=== PATIENT | female | born 1935 | race Caucasian/White ===

== ENCOUNTER 2017-03-27 18:08 | Emergency (ER) | payer MEDICARE, BC ==
[2017-03-27 18:29] VITALS: BP 152/83
[2017-03-27] MEDS ORDERED: Take Home: Phenazopyridine 95 MG Tab, 4 Tab Pack ONE (19:25)
[2017-03-27] MEDS ORDERED: Take Home: Sulfamethoxazole/Trimethoprim 800-160 MG Tab, 2 Tab Pack PO ONE (19:25)
--- NOTE | 2017-03-27 21:58 | ER ---
Date of Service: 03/27/2017 SUBJECTIVE: Olga presents to the emergency room with complaints of dysuria that she has been experiencing since this evening. She states that the symptoms came on quite suddenly. She states that she does have a history of urinary tract infections with her last episode being approximately 1 year ago. She is not experiencing any flank or back pain. She states she is not experiencing any chest pain, shortness of breath, or lightheadedness. Her primary complaints are that of dysuria and urinary frequency. PAST MEDICAL HISTORY: 1. Hypertension. 2. Dyslipidemia. 3. Type 2 diabetes mellitus. 4. Vitamin D deficiency. MEDICATIONS: 1. Prednisolone. 2. Glucophage. 3. Glipizide XL. 4. Niaspan. 5. Nevanac. 6. Vigamox. 7. Levemir. 8. NovoLog. 9. Lisinopril/hydrochlorothiazide. 10.Fenofibrate. 11.Zetia. 12.Vitamin D2. 13.Aspirin 81 mg a day. ALLERGIES: Simvastatin and Zoloft. REVIEW OF SYSTEMS: Denies any fever, chills, chest pain, shortness of breath, abdominal pain, back pain, lightheadedness, or weakness. Again, her primary complaints are that of dysuria and urinary frequency. PHYSICAL EXAMINATION: General: This is an 81-year-old female patient, who is in no acute distress. Vital Signs: Heart rate is 105, temperature is 36.3, blood pressure is 152/83, respiratory rate 18, O2 saturations 95%. Skin: Warm, pink, and dry. HEENT: Mouth, oral mucosa is moist. Lungs: Clear to auscultation. Heart: Regular rate and rhythm. Abdomen: Soft and nontender. There is no hepatosplenomegaly noted. There is no masses noted. Extremities: Without edema. Neurologic: She is alert and oriented, answers all questions appropriately. Her speech is fluent. Gait is within normal limits. No CVA tenderness on percussion or palpation. . LABORATORY DATA: Urinalysis was obtained. Specific gravity was 1.020, pH was 7.5. She did have large protein and glucose in her urine, negative ketones and moderate occult blood. She did have moderate leukocyte esterase and negative nitrates. She had 5 to 10 rbc's and 75 to 100 WBCs per high-power field. ASSESSMENT: Urinary tract infection. PLAN: The patient is started on Bactrim DS 1 twice daily for 7 days. She was also started on a course of Pyridium 100 mg 3 times a day for 3 days. I would like her to follow up in the clinic in 7 to 10 days to ensure resolution of her infection. All questions were answered. MWK: 03/27/2017 19:44:33 MODL: 03/27/2017 21:44:21 /[id number]
== END 2017-03-27 19:37 | disposition home or self-care (01) ==
LOC: VM.ED 18:08
DX: N39.0 Urinary tract infection, site not specified (principal); I10 Essential (primary) hypertension; E11.9 Type 2 diabetes mellitus without complications; Z88.8 Allergy status to other drugs, medicaments and biological substances
CPT/HCPCS: 81001; 99283; A9270

== ENCOUNTER 2017-10-18 10:16 | Inpatient (IN) | payer MEDICARE, BC ==
[2017-10-18] MEDS ORDERED: Triamcinolone Acetonide 0.1% Crm 15 GM Tube TOP PRN (14:58)
[2017-10-18] MEDS ORDERED: Docusate Sodium 100 MG Cap PO PRN (14:58)
[2017-10-18] MEDS ORDERED: Nitroglycerin 0.4 MG Tab.SL SL PRN (15:22)
[2017-10-18] MEDS: Nitroglycerin 0.4 MG Tab.SL SL SCH ×2 (15:35→15:36)
[2017-10-18] MEDS: metFORMIN 500 MG Tab PO SCH (17:04)
[2017-10-18] MEDS: Insulin Aspart 100 Units/ML 3 ML Pen SUBCUT SCH (17:04)
[2017-10-18] MEDS ORDERED: Insulin Aspart 100 Units/ML 3 ML Pen SUBCUT SCH (20:00)
[2017-10-18] MEDS: atorvaSTATin 40 MG Tab PO SCH (20:01)
[2017-10-18] MEDS: Insulin Detemir 100 Units/ML 3 ML Pen SUBCUT SCH (20:09)
[2017-10-18] MEDS: Acetaminophen 500 MG Tab PO PRN (21:13)
[2017-10-18] MEDS: Betamethasone Dipropionate/Clotrimazole 0.05-1% Crm 15 GM Tube TOP SCH (22:36)
[2017-10-19] MEDS: amLODIPine 5 MG Tab PO SCH (07:47)
[2017-10-19] MEDS: Lisinopril 10 MG Tab PO SCH (07:47)
[2017-10-19] MEDS: Metoprolol Succinate 50 MG Tab.ER PO SCH (07:47)
[2017-10-19] MEDS: Cholecalciferol (Vitamin D3) 400 Unit Tab PO SCH (07:47)
[2017-10-19] MEDS: Furosemide 40 MG Tab PO SCH (07:47)
[2017-10-19] MEDS: Aspirin 81 MG Tab.EC PO SCH (07:48)
[2017-10-19] MEDS: Fenofibrate,Micronized 134 MG Cap PO SCH (07:48)
[2017-10-19] MEDS: metFORMIN 500 MG Tab PO SCH ×2 (07:48→17:45)
[2017-10-19] MEDS: Insulin Aspart 100 Units/ML 3 ML Pen SUBCUT SCH ×3 (07:50→17:45)
[2017-10-19] MEDS: Betamethasone Dipropionate/Clotrimazole 0.05-1% Crm 15 GM Tube TOP SCH (07:55)
--- NOTE | 2017-10-19 08:16 | HP ---
CHIEF COMPLAINT: Recovery from stroke and acute TX. HISTORY OF PRESENT ILLNESS: The patient is an 82-year-old female who had suffered acute CVA on 10/10/2017. She initially was here at [place] and then transferred to [place]. She was found to have a large infarct on the right posterior portion of her middle cerebral artery circulation. The patient had been evaluated in [place] once there from 10/10/2017 until 10/18/2017. Echocardiogram was done, which showed ejection fraction of 45% with multiple wall motion abnormalities, inferior and lateral lora. Chest x-ray showed some suspected edema, unclear if there was a pneumonia present. The patient had been placed on insulin while she was n.p.o. and watching her blood sugars. The patient actually did have improvement of mentation and swallowing and speaking. She still is left with dense right hemiparesis as well as some mild left lower hemiparesis. The patient had been treated with Rocephin to cover for aspiration pneumonia while she had been in [place]. She was not placed on heparin because of the large stroke on her head. The patient has been noted to have an ulcer on her sacral area. The patient was seen also by Neurosurgery and she did have a carotid artery RICS stenosis with a stent placed on 10/12/2017. The patient's discharge summary is not available to me at the time of her coming back to [facility], intent is that she would like to be able to return to her own home. MEDICATIONS: At the time of transfer were amlodipine 5 mg 1 pill daily, aspirin 81 mg 1 pill daily, Lipitor 40 mg 1 pill at bedtime, Lotrisone topical 3 times a day with clotrimazole, vitamin D3 400 units 1 pill daily, docusate 100 mg 1 pill daily p.r.n., Lasix 40 mg 1 pill daily, Nitrostat 0.4 sublingual q.5 minutes x3 p.r.n., ticagrelor which is Brilinta 90 mg 1 p.o. b.i.d., fenofibrate 145 mg 1 pill daily, lisinopril 30 mg 1 pill daily, metoprolol-XL 100 mg 1 pill daily, Senna Plus 1 pill twice a day as needed, triamcinolone 0.1% cream b.i.d. p.r.n. She had been on Levemir 35 units at bedtime, NovoLog 5 units with breakfast, 7 units at lunch, and 5 units at supper. Prior to transfer to [place], she had been on glipizide extended release 2.5 mg 1 pill daily and metformin 1000 mg 1 p.o. b.i.d. ALLERGIES: Zocor, Zoloft. PAST MEDICAL HISTORY: She has had atopic cold dermatitis, basal cell carcinoma, DVT x2 in 2003, hypertension, she has had a DEXA scan. She has had hearing disorders, intrinsic dermatitis, lipodystrophy, hyperlipidemia, peripheral vascular disease, proteinuria, type 2 diabetes mellitus. She had a vesicovaginal fistula in 1972, she has had acute right CVA with left hemiparesis on 09/2017, acute TX 09/2017. PAST SURGICAL HISTORY: She has had a bladder repair in 1972, cataract extraction in 2015. She has had cholecystectomy in 1959, vaginal hysterectomy in 1989, and eye surgery in 2016. FAMILY MEDICAL HISTORY: Father had heart problems. Mother has had Bright's disease. Sister had a heart attack. Another sister had a uterine cancer and another sister another cancer metastatic. Daughter has hypertension. SOCIAL HISTORY: She is . She had 12 years of education. 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 Smoking: She used to smoke a pack a day. She quit in 1984. Alcohol use is occasional, 2 glasses of wine per week. REVIEW OF SYSTEMS: No fever. No headache. She does have bruising on her head from her fall when she had her event. No chest pain. No cough. No nausea. No burning with urination. Bowels have been constipated in the past. The patient does not have movement of her left upper arm. She can move her leg, but she has not tried walking since her stroke has happened. Her mood is actually quite good. OBJECTIVE: Vital Signs: The patient's weight is 72.4 kg, temperature is 36.5, pulse 73, blood pressure is 163/51, sats are 99, respiratory rate is 24. HEENT: The patient has ecchymosis on her left temporal area as well as her forehead. Her pupils are equal and reactive to light. Pharynx is normal. Facial muscles are symmetric. She is able to talk. I am not certain about gait reflex. She is eating currently. She is not able to shrug her left shoulder. Heart: Regular rate and rhythm without murmurs or bruits. Lungs: Clear to auscultation. Abdomen: Soft and nontender. Extremities:No deformities, left hand flexed NEUROLOGIC: Her left upper extremity is flaccid with unable to grasp hands or flex her elbow or shrug her shoulder. She is able to wiggle her toes on her left bend her knee. Reflex was 2+ on the right, 1+ on the left.: The patient's speech is clear, normal, no slurred speech or mumbling. Psychiatric: Her mood is happy, bright. She is oriented x3. She is well aware of her circumstances. IMPRESSION: 1. 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 2. Acute myocardial infarction, recovering. 3. congestive heart failure with reduced ejection fraction of 45%. 4. Type 2 diabetes mellitus on insulin. 5. Hypertension. 6. Chronic kidney disease. 7. Recent pneumonia. 8. Acute kidney injury. 9. Vitamin D deficiency. 10.Hypomagnesemia which is treated. 11. Sacral ulcer. PLAN: The patient will be admitted to swing bed. She is DNI/DNR status. She will receive physical therapy as well as occupational therapy. We will get a Speech consult. The patient will be continued on insulin. She had been on that [facility] prior to her stroke and actually she probably does not need the glipizide pill and intent is that the patient hopefully should be able to return home. We will repeat chest x-ray on patient, the patient will be followed by Cardiology for recheck of her acute TX. She is not able to participate in cardiac rehab due to her stroke with her deficits. Her family is present in the room and is aware of current plan of care as well. GM10/18/2017 15:17:59 MODL: 10/18/2017 19:56:33 /[id number] GEE
[2017-10-19] MEDS ORDERED: Betamethasone Dipropionate/Clotrimazole 0.05-1% Crm 15 GM Tube TOP PRN (08:29)
[2017-10-19] MEDS: Potassium Chloride 10 MEQ Tab.ER PO SCH (09:54)
[2017-10-19] MEDS ORDERED: Ticagrelor 90 MG Tab PO ONE ×2 (09:55→20:22)
[2017-10-19] MEDS: [UNRECOGNIZED DRUG - REMARK] PO SCH ×2 (09:55→20:22)
[2017-10-19] MEDS: atorvaSTATin 40 MG Tab PO SCH (20:20)
[2017-10-19] MEDS: Insulin Detemir 100 Units/ML 3 ML Pen SUBCUT SCH (20:21)
[2017-10-19] MEDS: Acetaminophen 500 MG Tab PO PRN (20:23)
[2017-10-20] MEDS: Aspirin 81 MG Tab.EC PO SCH (07:28)
[2017-10-20] MEDS: Cholecalciferol (Vitamin D3) 400 Unit Tab PO SCH (07:28)
[2017-10-20] MEDS: Potassium Chloride 10 MEQ Tab.ER PO SCH (07:28)
[2017-10-20] MEDS: Furosemide 40 MG Tab PO SCH (07:28)
[2017-10-20] MEDS: metFORMIN 500 MG Tab PO SCH ×2 (07:28→17:22)
[2017-10-20] MEDS: amLODIPine 5 MG Tab PO SCH (07:28)
[2017-10-20] MEDS: Fenofibrate,Micronized 134 MG Cap PO SCH (07:29)
[2017-10-20] MEDS: Lisinopril 10 MG Tab PO SCH (07:29)
[2017-10-20] MEDS: Metoprolol Succinate 50 MG Tab.ER PO SCH (07:29)
[2017-10-20] MEDS: [UNRECOGNIZED DRUG - REMARK] PO SCH ×2 (07:30→20:23)
[2017-10-20] MEDS: Insulin Aspart 100 Units/ML 3 ML Pen SUBCUT SCH ×3 (07:30→17:22)
[2017-10-20] MEDS ORDERED: Ticagrelor 90 MG Tab PO ONE ×2 (07:30→20:23)
[2017-10-20] MEDS: atorvaSTATin 40 MG Tab PO SCH (20:23)
[2017-10-20] MEDS: Acetaminophen 500 MG Tab PO PRN (20:25)
[2017-10-20] MEDS: Insulin Detemir 100 Units/ML 3 ML Pen SUBCUT SCH (20:27)
[2017-10-21] MEDS: Fenofibrate,Micronized 134 MG Cap PO SCH (07:18)
[2017-10-21] MEDS: Lisinopril 10 MG Tab PO SCH (07:18)
[2017-10-21] MEDS: Potassium Chloride 10 MEQ Tab.ER PO SCH (07:18)
[2017-10-21] MEDS: Aspirin 81 MG Tab.EC PO SCH (07:19)
[2017-10-21] MEDS: Furosemide 40 MG Tab PO SCH (07:19)
[2017-10-21] MEDS: amLODIPine 5 MG Tab PO SCH (07:19)
[2017-10-21] MEDS: metFORMIN 500 MG Tab PO SCH ×2 (07:19→17:48)
[2017-10-21] MEDS: Cholecalciferol (Vitamin D3) 400 Unit Tab PO SCH (07:19)
[2017-10-21] MEDS: Metoprolol Succinate 50 MG Tab.ER PO SCH (07:19)
[2017-10-21] MEDS: [UNRECOGNIZED DRUG - REMARK] PO SCH ×2 (07:21→20:11)
[2017-10-21] MEDS ORDERED: Ticagrelor 90 MG Tab PO ONE ×2 (07:21→20:11)
[2017-10-21] MEDS: Insulin Aspart 100 Units/ML 3 ML Pen SUBCUT SCH ×3 (07:23→17:48)
[2017-10-21] MEDS: Acetaminophen 500 MG Tab PO PRN (20:10)
[2017-10-21] MEDS: atorvaSTATin 40 MG Tab PO SCH (20:11)
[2017-10-21] MEDS: Insulin Detemir 100 Units/ML 3 ML Pen SUBCUT SCH (20:12)
[2017-10-22] MEDS: Acetaminophen 500 MG Tab PO PRN ×2 (07:54→20:25)
[2017-10-22] MEDS: Metoprolol Succinate 50 MG Tab.ER PO SCH (07:55)
[2017-10-22] MEDS: Fenofibrate,Micronized 134 MG Cap PO SCH (07:55)
[2017-10-22] MEDS: Lisinopril 10 MG Tab PO SCH (07:55)
[2017-10-22] MEDS: amLODIPine 5 MG Tab PO SCH (07:56)
[2017-10-22] MEDS: Potassium Chloride 10 MEQ Tab.ER PO SCH (07:56)
[2017-10-22] MEDS: metFORMIN 500 MG Tab PO SCH ×2 (07:56→18:08)
[2017-10-22] MEDS: Aspirin 81 MG Tab.EC PO SCH (07:56)
[2017-10-22] MEDS: Furosemide 40 MG Tab PO SCH (07:56)
[2017-10-22] MEDS ORDERED: Ticagrelor 90 MG Tab PO ONE ×2 (07:57→20:41)
[2017-10-22] MEDS: Cholecalciferol (Vitamin D3) 400 Unit Tab PO SCH (07:57)
[2017-10-22] MEDS: [UNRECOGNIZED DRUG - REMARK] PO SCH ×2 (07:57→20:41)
[2017-10-22] MEDS: Insulin Aspart 100 Units/ML 3 ML Pen SUBCUT SCH ×3 (07:58→18:05)
--- NOTE | 2017-10-22 09:57 | PN ---
Progress Note for MYRIAM Heard AUS Date: 10/22/2017 Room #: VM.218 SUBJECTIVE: The patient is getting settled into here. She was noted to have a little bit of an elevated blood pressure when she first came in. It does seem to be possibly a bit more anxiety related, it is improving. Her ability to have a nighttime sleep study has been difficult because she has been afraid to sleep at night due to her stroke, but that has just been since this event has happened. Her family also has not been staying at nights with her now anymore, which also may be a factor. OBJECTIVE: Vital Signs: Her temperature is 36.2, pulse is 96, blood pressure is now 135/68, sats are 95% on room air, and respiratory rate 18. Heart: Regular rate and rhythm. Lungs: Clear to auscultation. Abdomen: Soft and nontender. Extremities: The patient can move her legs. Her left arm is densely hemiparetic. Neurologic: Speech does seem to be probably okay. LABORATORY DATA: Her lab today shows her hemoglobin is up to 10.6. Sodium is 139, potassium 3.4, creatinine 1.4, GFR is 36, glucose 109 and this morning it has been up to 165. IMPRESSION: 1. Right cerebrovascular accident with left hemiparesis. 2. Type 2 diabetes mellitus. 3. Hypertension. 4. Some sacral wound ulcer. 5. Recent urinary tract infection. 6. Some insomnia. 7. Dysphagia. PLAN: We will see if adding lorazepam at night can help her sleep. We will reduce her Accu-Cheks to twice a day. We will continue to watch her blood pressure. It is getting better, and I do not think we will do a dose increase yet. She will continue to work with Physical Therapy and Speech Therapy. Intent is hopefully to have the patient return home. GM10/22/2017 08:20:08 MODL: 10/22/2017 09:06:06 /[id number] GEE
[2017-10-22] MEDS: Insulin Detemir 100 Units/ML 3 ML Pen SUBCUT SCH (20:15)
[2017-10-22] MEDS: atorvaSTATin 40 MG Tab PO SCH (20:25)
[2017-10-23] MEDS: Lisinopril 10 MG Tab PO SCH (07:29)
[2017-10-23] MEDS: amLODIPine 5 MG Tab PO SCH (07:29)
[2017-10-23] MEDS: metFORMIN 500 MG Tab PO SCH ×2 (07:29→17:20)
[2017-10-23] MEDS: Furosemide 40 MG Tab PO SCH (07:29)
[2017-10-23] MEDS: Potassium Chloride 10 MEQ Tab.ER PO SCH (07:29)
[2017-10-23] MEDS: Cholecalciferol (Vitamin D3) 400 Unit Tab PO SCH (07:29)
[2017-10-23] MEDS: Aspirin 81 MG Tab.EC PO SCH (07:29)
[2017-10-23] MEDS: Metoprolol Succinate 50 MG Tab.ER PO SCH (07:30)
[2017-10-23] MEDS: Fenofibrate,Micronized 134 MG Cap PO SCH (07:30)
[2017-10-23] MEDS: [UNRECOGNIZED DRUG - REMARK] PO SCH ×2 (07:30→20:07)
[2017-10-23] MEDS ORDERED: Ticagrelor 90 MG Tab PO ONE ×2 (07:30→20:07)
[2017-10-23] MEDS: Insulin Aspart 100 Units/ML 3 ML Pen SUBCUT SCH ×3 (07:35→17:20)
[2017-10-23] MEDS: Insulin Detemir 100 Units/ML 3 ML Pen SUBCUT SCH (20:07)
[2017-10-23] MEDS: Acetaminophen 500 MG Tab PO PRN (20:10)
[2017-10-23] MEDS: atorvaSTATin 40 MG Tab PO SCH (20:10)
[2017-10-24] MEDS: Metoprolol Succinate 50 MG Tab.ER PO SCH (08:13)
[2017-10-24] MEDS: Potassium Chloride 10 MEQ Tab.ER PO SCH (08:13)
[2017-10-24] MEDS: Cholecalciferol (Vitamin D3) 400 Unit Tab PO SCH (08:14)
[2017-10-24] MEDS: Lisinopril 10 MG Tab PO SCH (08:14)
[2017-10-24] MEDS: Furosemide 40 MG Tab PO SCH (08:15)
[2017-10-24] MEDS: Fenofibrate,Micronized 134 MG Cap PO SCH (08:15)
[2017-10-24] MEDS: amLODIPine 5 MG Tab PO SCH (08:15)
[2017-10-24] MEDS: Aspirin 81 MG Tab.EC PO SCH (08:15)
[2017-10-24] MEDS: metFORMIN 500 MG Tab PO SCH ×2 (08:15→17:58)
[2017-10-24] MEDS: Insulin Aspart 100 Units/ML 3 ML Pen SUBCUT SCH ×3 (08:16→17:58)
[2017-10-24] MEDS: [UNRECOGNIZED DRUG - REMARK] PO SCH ×2 (08:16→19:58)
[2017-10-24] MEDS ORDERED: Ticagrelor 90 MG Tab PO ONE ×2 (08:16→19:58)
[2017-10-24] MEDS: Insulin Detemir 100 Units/ML 3 ML Pen SUBCUT SCH (19:58)
[2017-10-24] MEDS: LORazepam 0.5 MG Tab PO PRN (19:59)
[2017-10-24] MEDS: atorvaSTATin 40 MG Tab PO SCH (19:59)
[2017-10-24] MEDS: Acetaminophen 500 MG Tab PO PRN (19:59)
[2017-10-25] MEDS: metFORMIN 500 MG Tab PO SCH ×2 (08:01→17:49)
[2017-10-25] MEDS: Lisinopril 10 MG Tab PO SCH (08:02)
[2017-10-25] MEDS: Aspirin 81 MG Tab.EC PO SCH (08:03)
[2017-10-25] MEDS: Fenofibrate,Micronized 134 MG Cap PO SCH (08:03)
[2017-10-25] MEDS: Cholecalciferol (Vitamin D3) 400 Unit Tab PO SCH (08:03)
[2017-10-25] MEDS: Potassium Chloride 10 MEQ Tab.ER PO SCH (08:03)
[2017-10-25] MEDS: amLODIPine 5 MG Tab PO SCH (08:04)
[2017-10-25] MEDS: Furosemide 40 MG Tab PO SCH (08:04)
[2017-10-25] MEDS: Metoprolol Succinate 50 MG Tab.ER PO SCH (08:04)
[2017-10-25] MEDS ORDERED: Ticagrelor 90 MG Tab PO ONE ×2 (08:05→20:23)
[2017-10-25] MEDS: [UNRECOGNIZED DRUG - REMARK] PO SCH ×2 (08:05→20:23)
[2017-10-25] MEDS: Insulin Aspart 100 Units/ML 3 ML Pen SUBCUT SCH ×3 (08:07→17:47)
[2017-10-25] MEDS: Acetaminophen 500 MG Tab PO PRN (20:17)
[2017-10-25] MEDS: LORazepam 0.5 MG Tab PO PRN (20:18)
[2017-10-25] MEDS: atorvaSTATin 40 MG Tab PO SCH (20:18)
[2017-10-25] MEDS: Insulin Detemir 100 Units/ML 3 ML Pen SUBCUT SCH (20:24)
[2017-10-26] MEDS: metFORMIN 500 MG Tab PO SCH ×2 (07:59→18:05)
[2017-10-26] MEDS: Furosemide 40 MG Tab PO SCH (07:59)
[2017-10-26] MEDS: Metoprolol Succinate 50 MG Tab.ER PO SCH (07:59)
[2017-10-26] MEDS: Lisinopril 10 MG Tab PO SCH (07:59)
[2017-10-26] MEDS: Potassium Chloride 10 MEQ Tab.ER PO SCH (08:00)
[2017-10-26] MEDS: Cholecalciferol (Vitamin D3) 400 Unit Tab PO SCH (08:00)
[2017-10-26] MEDS: Fenofibrate,Micronized 134 MG Cap PO SCH (08:00)
[2017-10-26] MEDS: Acetaminophen 500 MG Tab PO PRN ×2 (08:00→20:13)
[2017-10-26] MEDS: amLODIPine 5 MG Tab PO SCH (08:00)
[2017-10-26] MEDS: Insulin Aspart 100 Units/ML 3 ML Pen SUBCUT SCH ×3 (08:01→18:06)
[2017-10-26] MEDS: Aspirin 81 MG Tab.EC PO SCH (08:01)
[2017-10-26] MEDS: [UNRECOGNIZED DRUG - REMARK] PO SCH ×2 (08:01→20:19)
[2017-10-26] MEDS ORDERED: Ticagrelor 90 MG Tab PO ONE ×2 (08:01→20:19)
[2017-10-26] MEDS: atorvaSTATin 40 MG Tab PO SCH (20:12)
[2017-10-26] MEDS: LORazepam 0.5 MG Tab PO PRN (20:12)
[2017-10-26] MEDS: Insulin Detemir 100 Units/ML 3 ML Pen SUBCUT SCH (20:18)
[2017-10-27] MEDS: Fenofibrate,Micronized 134 MG Cap PO SCH (07:53)
[2017-10-27] MEDS: Lisinopril 10 MG Tab PO SCH (07:53)
[2017-10-27] MEDS: Cholecalciferol (Vitamin D3) 400 Unit Tab PO SCH (07:53)
[2017-10-27] MEDS: Potassium Chloride 10 MEQ Tab.ER PO SCH (07:53)
[2017-10-27] MEDS: amLODIPine 5 MG Tab PO SCH (07:53)
[2017-10-27] MEDS: metFORMIN 500 MG Tab PO SCH ×2 (07:53→21:41)
[2017-10-27] MEDS: Aspirin 81 MG Tab.EC PO SCH (07:54)
[2017-10-27] MEDS: Insulin Aspart 100 Units/ML 3 ML Pen SUBCUT SCH ×3 (07:54→21:34)
[2017-10-27] MEDS: Furosemide 40 MG Tab PO SCH (07:54)
[2017-10-27] MEDS: Metoprolol Succinate 50 MG Tab.ER PO SCH (07:54)
[2017-10-27] MEDS: [UNRECOGNIZED DRUG - REMARK] PO SCH ×2 (07:55→21:44)
[2017-10-27] MEDS ORDERED: Ticagrelor 90 MG Tab PO ONE ×2 (07:55→21:44)
[2017-10-27] MEDS: Insulin Detemir 100 Units/ML 3 ML Pen SUBCUT SCH ×2 (10:08→21:45)
[2017-10-27] MEDS: LORazepam 0.5 MG Tab PO PRN (21:41)
[2017-10-27] MEDS: Acetaminophen 500 MG Tab PO PRN (21:42)
[2017-10-27] MEDS: atorvaSTATin 40 MG Tab PO SCH (21:42)
[2017-10-28] MEDS: Acetaminophen 500 MG Tab PO PRN ×2 (04:10→21:14)
[2017-10-28] MEDS: Insulin Detemir 100 Units/ML 3 ML Pen SUBCUT SCH ×2 (04:19→21:18)
[2017-10-28] MEDS: [UNRECOGNIZED DRUG - REMARK] PO SCH ×2 (07:41→21:17)
[2017-10-28] MEDS ORDERED: Ticagrelor 90 MG Tab PO ONE ×2 (07:41→21:17)
[2017-10-28] MEDS: Aspirin 81 MG Tab.EC PO SCH (07:42)
[2017-10-28] MEDS: Fenofibrate,Micronized 134 MG Cap PO SCH (07:42)
[2017-10-28] MEDS: metFORMIN 500 MG Tab PO SCH ×2 (07:42→18:12)
[2017-10-28] MEDS: Potassium Chloride 10 MEQ Tab.ER PO SCH (07:43)
[2017-10-28] MEDS: Metoprolol Succinate 50 MG Tab.ER PO SCH (07:43)
[2017-10-28] MEDS: Furosemide 40 MG Tab PO SCH (07:43)
[2017-10-28] MEDS: amLODIPine 5 MG Tab PO SCH (07:43)
[2017-10-28] MEDS: Cholecalciferol (Vitamin D3) 400 Unit Tab PO SCH (07:43)
[2017-10-28] MEDS: Lisinopril 10 MG Tab PO SCH (07:43)
[2017-10-28] MEDS: Insulin Aspart 100 Units/ML 3 ML Pen SUBCUT SCH ×3 (07:44→18:11)
[2017-10-28] MEDS: LORazepam 0.5 MG Tab PO PRN (21:13)
[2017-10-28] MEDS: Melatonin 3 MG Tab PO SCH (21:13)
[2017-10-28] MEDS: atorvaSTATin 40 MG Tab PO SCH (21:14)
[2017-10-29] MEDS: Fenofibrate,Micronized 134 MG Cap PO SCH (08:34)
[2017-10-29] MEDS: Lisinopril 10 MG Tab PO SCH (08:35)
[2017-10-29] MEDS: Metoprolol Succinate 50 MG Tab.ER PO SCH (08:35)
[2017-10-29] MEDS: Cholecalciferol (Vitamin D3) 400 Unit Tab PO SCH (08:36)
[2017-10-29] MEDS: Furosemide 40 MG Tab PO SCH (08:36)
[2017-10-29] MEDS: Aspirin 81 MG Tab.EC PO SCH (08:36)
[2017-10-29] MEDS: Potassium Chloride 10 MEQ Tab.ER PO SCH (08:36)
[2017-10-29] MEDS: amLODIPine 5 MG Tab PO SCH (08:37)
[2017-10-29] MEDS: metFORMIN 500 MG Tab PO SCH ×2 (08:37→18:45)
[2017-10-29] MEDS: Acetaminophen 500 MG Tab PO PRN ×2 (08:37→16:00)
[2017-10-29] MEDS: [UNRECOGNIZED DRUG - REMARK] PO SCH ×2 (08:38→20:27)
[2017-10-29] MEDS ORDERED: Ticagrelor 90 MG Tab PO ONE ×2 (08:38→20:27)
[2017-10-29] MEDS: Insulin Aspart 100 Units/ML 3 ML Pen SUBCUT SCH ×3 (08:39→18:45)
--- NOTE | 2017-10-29 08:46 | PN ---
Progress Note for MYRIAM Heard AUS Date: 10/29/2017 Room #: VM.218 SUBJECTIVE: The patient was having some problems with low blood sugar, so we have cut down her evening long-acting insulin which has helped. Her blood pressure also are in better range right now. She has not been eating as much. She has had some difficult time sleeping, so melatonin was started last night and she slept wonderfully last night. OBJECTIVE: Vital Signs: Her temperature is 36.9, pulse 83, blood pressure is 128/71, respirations are 18, sats are 100%. HEENT: She still has some slight slurring of her speech, very minimal left facial droop. Heart: Regular rate and rhythm. Lungs: Clear to auscultation. Abdomen: Soft. Extremities: She is densely hemiparetic of her left upper extremity. Left lower has some slight movement. Her blood sugars yesterday ranged between 113s to 160s. IMPRESSION: 1. Right cerebrovascular accident with left hemiparesis. 2. Type 2 diabetes mellitus. 3. Hypertension. 4. Chronic kidney disease. 5. Insomnia. 6. Mild anemia. 7. Dysphagia. PLAN: The patient is to continue to work with speech and physical therapy and occupational therapy. We will keep an eye on her blood sugars. We will monitor her blood pressure. We will check her labs on the and continue therapies. Anticipate her to be on swing bed for quite a while as she is receiving therapies from her stroke. When she plateaus, we will determine if she will be able to return to any sort of home versus assisted living versus if she needs [facility] care. GM10/29/2017 08:18:56 MODL: 10/29/2017 08:35:36 /[id number]
[2017-10-29] MEDS: Insulin Detemir 100 Units/ML 3 ML Pen SUBCUT SCH (20:28)
[2017-10-29] MEDS: Melatonin 3 MG Tab PO SCH (20:28)
[2017-10-29] MEDS: atorvaSTATin 40 MG Tab PO SCH (20:28)
[2017-10-29] MEDS: LORazepam 0.5 MG Tab PO PRN (20:33)
[2017-10-30] MEDS ORDERED: Ticagrelor 90 MG Tab PO ONE ×2 (08:19→20:13)
[2017-10-30] MEDS: Potassium Chloride 10 MEQ Tab.ER PO SCH (13:49)
[2017-10-30] MEDS: Fenofibrate,Micronized 134 MG Cap PO SCH (13:49)
[2017-10-30] MEDS: metFORMIN 500 MG Tab PO SCH ×2 (13:49→17:13)
[2017-10-30] MEDS: Aspirin 81 MG Tab.EC PO SCH (13:49)
[2017-10-30] MEDS: Metoprolol Succinate 50 MG Tab.ER PO SCH (13:50)
[2017-10-30] MEDS: amLODIPine 5 MG Tab PO SCH (13:50)
[2017-10-30] MEDS: [UNRECOGNIZED DRUG - REMARK] PO SCH ×2 (13:50→20:13)
[2017-10-30] MEDS: Insulin Aspart 100 Units/ML 3 ML Pen SUBCUT SCH ×3 (13:50→16:20)
[2017-10-30] MEDS: Lisinopril 10 MG Tab PO SCH (13:50)
[2017-10-30] MEDS: Furosemide 40 MG Tab PO SCH (13:50)
[2017-10-30] MEDS: Cholecalciferol (Vitamin D3) 400 Unit Tab PO SCH (13:51)
[2017-10-30] MEDS: Insulin Detemir 100 Units/ML 3 ML Pen SUBCUT SCH (20:11)
[2017-10-30] MEDS: atorvaSTATin 40 MG Tab PO SCH (20:13)
[2017-10-30] MEDS: Melatonin 3 MG Tab PO SCH (20:13)
[2017-10-30] MEDS: LORazepam 0.5 MG Tab PO PRN (22:38)
[2017-10-31] MEDS ORDERED: Sodium Chloride 0.9% 500 ML IV ONE (08:25)
[2017-10-31] MEDS: Cholecalciferol (Vitamin D3) 400 Unit Tab PO SCH (08:55)
[2017-10-31] MEDS: Metoprolol Succinate 50 MG Tab.ER PO SCH (08:55)
[2017-10-31] MEDS: Aspirin 81 MG Tab.EC PO SCH (08:56)
[2017-10-31] MEDS: Insulin Aspart 100 Units/ML 3 ML Pen SUBCUT SCH ×3 (08:56→17:36)
[2017-10-31] MEDS: amLODIPine 5 MG Tab PO SCH (08:56)
[2017-10-31] MEDS: Furosemide 40 MG Tab PO SCH (09:24)
[2017-10-31] MEDS: Fenofibrate,Micronized 134 MG Cap PO SCH (09:24)
[2017-10-31] MEDS: Potassium Chloride 10 MEQ Tab.ER PO SCH (09:24)
[2017-10-31] MEDS: Lisinopril 10 MG Tab PO SCH (09:25)
[2017-10-31] MEDS: metFORMIN 500 MG Tab PO SCH (09:26)
[2017-10-31] MEDS: [UNRECOGNIZED DRUG - REMARK] PO SCH (09:26)
--- NOTE | 2017-10-31 09:52 | PN ---
Progress Note for MYRIAM Heard AUS Date: 10/31/2017 Room #: VM.218 SUBJECTIVE: The patient feels fine, offers no complaints. She has gotten a little strength of her left hand. OBJECTIVE: Vital Signs: The patient's weight is 72.7 kilos which is about the same as when she was admitted on 10/18/2017. Blood pressure is 131/48, pulse is 59, respirations are 18, sats are 100%. Temperature is 36.6. Skin: [place], warm, and dry. No bruising. Neuro: Her speech is slightly dysarthric. Heart: Regular rate and rhythm. Lungs: Clear to auscultation. Abdomen: Soft. Extremities: Her left upper extremity is flaccid, but with slight grasp of her left hand. She can move her left leg. Psych: She is alert, oriented x3. LABORATORY FINDINGS: Her creatinine today came back at 3.5, which is up from 1.4 on 10/22/2017. Her BUN is 128, it had been 59 on 10/22/2017. GFR is 13. It had been 36 on 10/22/2017. Sodium is 141, potassium 4.9, glucose is 161. AST is 27, ALT 21, alkaline phosphatase 33, albumin 3.1. Her white blood cell count 5.9, hemoglobin 9.6, platelets are 207. IMPRESSION: 1. Acute kidney injury, possibly multifactorial, may be dehydration related, may be medication related from JAM inhibitors and metformin as well as diuretics and possibly Brilinta can cause elevations of creatinine. 2. Right cerebrovascular accident with left hemiparesis. 3. Hypertension. 4. Type 2 diabetes mellitus. 5. CKD stage 3 is baseline. PLAN: We will hold her lisinopril, Lasix, metformin, and Brilinta right now. We will give her 500 mL of normal saline and we will repeat blood work tomorrow. The patient in the past has been seen by Dr. Bella, automotive mechanical engineer, and may need to involve him in her care. We will need to monitor her blood pressure and adjust other medications that do not have renal effects. Right now her potassium is at 10 mEq daily. We will also hold that as well to make certain that she does not have problems with hyperkalemia. The patient was made aware of change of renal function with her blood sugars. We can easily adjust her insulin to accommodate that. GM10/31/2017 08:31:20 MODL: 10/31/2017 08:57:16 /[id number] MTDD
[2017-10-31] MEDS: Menthol/Methyl Salicylate 85 GM Tube TOP PRN (15:48)
[2017-10-31] MEDS: Acetaminophen 500 MG Tab PO PRN (15:49)
[2017-10-31] MEDS: Insulin Detemir 100 Units/ML 3 ML Pen SUBCUT SCH (20:09)
[2017-10-31] MEDS: atorvaSTATin 40 MG Tab PO SCH (20:10)
[2017-10-31] MEDS: Melatonin 3 MG Tab PO SCH (20:10)
[2017-11-01] MEDS: LORazepam 0.5 MG Tab PO PRN (00:14)
[2017-11-01] MEDS: amLODIPine 5 MG Tab PO SCH (07:37)
[2017-11-01] MEDS: Cholecalciferol (Vitamin D3) 400 Unit Tab PO SCH (07:37)
[2017-11-01] MEDS: Metoprolol Succinate 50 MG Tab.ER PO SCH (07:37)
[2017-11-01] MEDS: Aspirin 81 MG Tab.EC PO SCH (07:38)
[2017-11-01] MEDS: Insulin Aspart 100 Units/ML 3 ML Pen SUBCUT SCH ×3 (07:38→17:53)
[2017-11-01] MEDS: Insulin Detemir 100 Units/ML 3 ML Pen SUBCUT SCH (19:59)
[2017-11-01] MEDS: atorvaSTATin 40 MG Tab PO SCH (20:00)
[2017-11-01] MEDS: Menthol/Methyl Salicylate 85 GM Tube TOP PRN (20:00)
[2017-11-01] MEDS: Melatonin 3 MG Tab PO SCH (20:00)
[2017-11-02] MEDS: Metoprolol Succinate 50 MG Tab.ER PO SCH (08:18)
[2017-11-02] MEDS: Aspirin 81 MG Tab.EC PO SCH (08:19)
[2017-11-02] MEDS: Cholecalciferol (Vitamin D3) 400 Unit Tab PO SCH (08:19)
[2017-11-02] MEDS: amLODIPine 5 MG Tab PO SCH (08:19)
[2017-11-02] MEDS: Insulin Aspart 100 Units/ML 3 ML Pen SUBCUT SCH ×3 (08:22→18:02)
[2017-11-02] MEDS ORDERED: Ticagrelor 90 MG Tab PO SCH (09:31)
[2017-11-02] MEDS: Insulin Detemir 100 Units/ML 3 ML Pen SUBCUT SCH (20:48)
[2017-11-02] MEDS: atorvaSTATin 40 MG Tab PO SCH (20:48)
[2017-11-02] MEDS: Melatonin 3 MG Tab PO SCH (20:48)
[2017-11-03] MEDS: Metoprolol Succinate 50 MG Tab.ER PO SCH (08:26)
[2017-11-03] MEDS: Aspirin 81 MG Tab.EC PO SCH (08:26)
[2017-11-03] MEDS: amLODIPine 5 MG Tab PO SCH (08:27)
[2017-11-03] MEDS: Cholecalciferol (Vitamin D3) 400 Unit Tab PO SCH (08:27)
[2017-11-03] MEDS: Insulin Aspart 100 Units/ML 3 ML Pen SUBCUT SCH ×3 (08:27→18:39)
[2017-11-03] MEDS: atorvaSTATin 40 MG Tab PO SCH (20:18)
[2017-11-03] MEDS: Melatonin 3 MG Tab PO SCH (20:18)
[2017-11-03] MEDS: Insulin Detemir 100 Units/ML 3 ML Pen SUBCUT SCH (20:20)
[2017-11-04] MEDS: Acetaminophen 500 MG Tab PO PRN (07:36)
[2017-11-04] MEDS: Cholecalciferol (Vitamin D3) 400 Unit Tab PO SCH (07:37)
[2017-11-04] MEDS: amLODIPine 5 MG Tab PO SCH (07:37)
[2017-11-04] MEDS: Aspirin 81 MG Tab.EC PO SCH (07:37)
[2017-11-04] MEDS: Metoprolol Succinate 50 MG Tab.ER PO SCH (07:37)
[2017-11-04] MEDS: Insulin Aspart 100 Units/ML 3 ML Pen SUBCUT SCH ×3 (07:37→17:43)
[2017-11-04] MEDS: LORazepam 0.5 MG Tab PO PRN (19:51)
[2017-11-04] MEDS: Melatonin 3 MG Tab PO SCH (19:51)
[2017-11-04] MEDS: atorvaSTATin 40 MG Tab PO SCH (19:51)
[2017-11-04] MEDS: Insulin Detemir 100 Units/ML 3 ML Pen SUBCUT SCH (19:51)
[2017-11-05] MEDS: Acetaminophen 500 MG Tab PO PRN (07:56)
[2017-11-05] MEDS: Metoprolol Succinate 50 MG Tab.ER PO SCH (07:57)
[2017-11-05] MEDS: Aspirin 81 MG Tab.EC PO SCH (07:58)
[2017-11-05] MEDS: Cholecalciferol (Vitamin D3) 400 Unit Tab PO SCH (07:58)
[2017-11-05] MEDS: amLODIPine 5 MG Tab PO SCH (07:58)
[2017-11-05] MEDS: Insulin Aspart 100 Units/ML 3 ML Pen SUBCUT SCH ×3 (07:59→17:50)
[2017-11-05] MEDS: Lisinopril 5 MG Tab PO SCH (09:18)
[2017-11-05] MEDS: Melatonin 3 MG Tab PO SCH (20:20)
[2017-11-05] MEDS: atorvaSTATin 40 MG Tab PO SCH (20:20)
[2017-11-05] MEDS: Insulin Detemir 100 Units/ML 3 ML Pen SUBCUT SCH (20:30)
[2017-11-06] MEDS: Metoprolol Succinate 50 MG Tab.ER PO SCH (07:54)
[2017-11-06] MEDS: amLODIPine 5 MG Tab PO SCH (07:54)
[2017-11-06] MEDS: Cholecalciferol (Vitamin D3) 400 Unit Tab PO SCH (07:54)
[2017-11-06] MEDS: Potassium Chloride 10 MEQ Tab.ER PO SCH (07:54)
[2017-11-06] MEDS: Aspirin 81 MG Tab.EC PO SCH (07:54)
[2017-11-06] MEDS: Lisinopril 5 MG Tab PO SCH (07:54)
[2017-11-06] MEDS: Insulin Aspart 100 Units/ML 3 ML Pen SUBCUT SCH ×3 (07:55→18:25)
[2017-11-06] MEDS: Furosemide 40 MG Tab PO SCH (08:06)
[2017-11-06] MEDS: Fenofibrate,Micronized 134 MG Cap PO SCH (08:06)
[2017-11-06] MEDS: Melatonin 3 MG Tab PO SCH (20:22)
[2017-11-06] MEDS: Insulin Detemir 100 Units/ML 3 ML Pen SUBCUT SCH (20:23)
[2017-11-06] MEDS: atorvaSTATin 40 MG Tab PO SCH (20:23)
[2017-11-07] MEDS: Fenofibrate,Micronized 134 MG Cap PO SCH (08:14)
[2017-11-07] MEDS: Metoprolol Succinate 50 MG Tab.ER PO SCH (08:14)
[2017-11-07] MEDS: Cholecalciferol (Vitamin D3) 400 Unit Tab PO SCH (08:15)
[2017-11-07] MEDS: Furosemide 40 MG Tab PO SCH (08:15)
[2017-11-07] MEDS: amLODIPine 5 MG Tab PO SCH (08:15)
[2017-11-07] MEDS: Potassium Chloride 10 MEQ Tab.ER PO SCH (08:15)
[2017-11-07] MEDS: Lisinopril 5 MG Tab PO SCH (08:16)
[2017-11-07] MEDS: Aspirin 81 MG Tab.EC PO SCH (08:16)
[2017-11-07] MEDS: Insulin Aspart 100 Units/ML 3 ML Pen SUBCUT SCH ×3 (08:18→17:54)
[2017-11-07] MEDS: Insulin Detemir 100 Units/ML 3 ML Pen SUBCUT SCH (20:33)
[2017-11-07] MEDS: Melatonin 3 MG Tab PO SCH (20:34)
[2017-11-07] MEDS: atorvaSTATin 40 MG Tab PO SCH (20:34)
[2017-11-08] MEDS: LORazepam 0.5 MG Tab PO PRN ×2 (01:04→20:22)
[2017-11-08] MEDS: Metoprolol Succinate 50 MG Tab.ER PO SCH (07:53)
[2017-11-08] MEDS: Furosemide 40 MG Tab PO SCH (07:53)
[2017-11-08] MEDS: Fenofibrate,Micronized 134 MG Cap PO SCH (07:53)
[2017-11-08] MEDS: Aspirin 81 MG Tab.EC PO SCH (07:54)
[2017-11-08] MEDS: Potassium Chloride 10 MEQ Tab.ER PO SCH (07:54)
[2017-11-08] MEDS: Cholecalciferol (Vitamin D3) 400 Unit Tab PO SCH (07:54)
[2017-11-08] MEDS: Insulin Aspart 100 Units/ML 3 ML Pen SUBCUT SCH ×3 (07:55→17:57)
[2017-11-08] MEDS: amLODIPine 5 MG Tab PO SCH (07:55)
[2017-11-08] MEDS: Lisinopril 5 MG Tab PO SCH (07:55)
[2017-11-08] MEDS: atorvaSTATin 40 MG Tab PO SCH (20:22)
[2017-11-08] MEDS: Melatonin 3 MG Tab PO SCH (20:22)
[2017-11-08] MEDS: Acetaminophen 500 MG Tab PO PRN (20:23)
[2017-11-08] MEDS: Insulin Detemir 100 Units/ML 3 ML Pen SUBCUT SCH (20:24)
[2017-11-08] MEDS: Menthol/Methyl Salicylate 85 GM Tube TOP PRN (20:26)
[2017-11-09] MEDS: Aspirin 81 MG Tab.EC PO SCH (08:02)
[2017-11-09] MEDS: Furosemide 40 MG Tab PO SCH (08:02)
[2017-11-09] MEDS: Fenofibrate,Micronized 134 MG Cap PO SCH (08:02)
[2017-11-09] MEDS: amLODIPine 5 MG Tab PO SCH (08:03)
[2017-11-09] MEDS: Cholecalciferol (Vitamin D3) 400 Unit Tab PO SCH (08:03)
[2017-11-09] MEDS: Lisinopril 5 MG Tab PO SCH (08:03)
[2017-11-09] MEDS: Potassium Chloride 10 MEQ Tab.ER PO SCH (08:04)
[2017-11-09] MEDS: Metoprolol Succinate 50 MG Tab.ER PO SCH (08:04)
[2017-11-09] MEDS: Insulin Aspart 100 Units/ML 3 ML Pen SUBCUT SCH ×3 (08:05→18:05)
--- NOTE | 2017-11-09 10:10 | PN ---
Progress Note for MYRIAM Félix AUS Date: 11/09/2017 Room #: VM.218 SUBJECTIVE: The patient is getting stronger. She is working with Speech. She is starting to get some weak grasp of her left hand. She is not coughing or short of breath. OBJECTIVE: Vital Signs: Her blood pressure is 148/59, but has been down to 128/55; pulse is 64; temperature is 36.4; and her sats are 97 on room air. Skin: She has a few bruising spots. Heart: Regular rate and rhythm. Lungs: Clear to auscultation. Abdomen: Bowel sounds present. Neurology: The patient still has partial left facial droop. Her left upper extremity is very dense, with just minimal movement of her hand. Her left leg does have some movement. She has been walking. Her speech is slightly slurred. LABORATORY DATA: Her lab today shows her hemoglobin continues to drop, it is 9.2. It had been 10.1 on admission. Her Brilinta had been stopped. Her white blood cell count 6.1 and platelets are 167. Stool is still pending for Hemoccult. Sodium is 142, potassium 3.8, creatinine has improved to 1.8 from a maximum of 3.5, and she had been 1.5 on admission. Her GFR is 27, improved from 13, and it had been 33 on admission. Glucose is 128, BUN is 44, she had been 51 on admission, but it had been up to 113. IMPRESSION: 1. Right cerebrovascular accident with left hemiparesis, slightly improved. 2. Acute kidney injury in face of chronic kidney disease, stage 3, which is improving. 3. Type 2 diabetes mellitus. 4. Hypertension. 5. Iron deficiency anemia. 6. Decubitus ulcer. PLAN: We will check stored iron levels today. We will redraw her. We will start her on iron supplement. We will continue her on her same blood pressure pills. We have not resumed Brilinta as concern with, if that may have caused the worsening of kidney function as well as if she is having problems with anemia. She will continue PT, OT, and speech services. Her mood is quite good right now. Nursing cares for decubitus ulcer. GM11/09/2017 08:29:49 MODL: 11/09/2017 08:52:53 /[id number] GEE
[2017-11-09] MEDS: Ferrous Sulfate 325 MG Tab PO SCH (11:59)
[2017-11-09] MEDS: Insulin Detemir 100 Units/ML 3 ML Pen SUBCUT SCH (20:58)
[2017-11-09] MEDS: atorvaSTATin 40 MG Tab PO SCH (20:59)
[2017-11-09] MEDS: Melatonin 3 MG Tab PO SCH (20:59)
[2017-11-09] MEDS: Menthol/Methyl Salicylate 85 GM Tube TOP PRN (21:02)
[2017-11-09] MEDS: LORazepam 0.5 MG Tab PO PRN (21:15)
[2017-11-10] MEDS: Cholecalciferol (Vitamin D3) 400 Unit Tab PO SCH (08:43)
[2017-11-10] MEDS: Ferrous Sulfate 325 MG Tab PO SCH (08:43)
[2017-11-10] MEDS: Lisinopril 5 MG Tab PO SCH (08:44)
[2017-11-10] MEDS: amLODIPine 5 MG Tab PO SCH (08:44)
[2017-11-10] MEDS: Potassium Chloride 10 MEQ Tab.ER PO SCH (08:44)
[2017-11-10] MEDS: Metoprolol Succinate 50 MG Tab.ER PO SCH (08:44)
[2017-11-10] MEDS: Furosemide 40 MG Tab PO SCH (08:45)
[2017-11-10] MEDS: Aspirin 81 MG Tab.EC PO SCH (08:45)
[2017-11-10] MEDS: Fenofibrate,Micronized 134 MG Cap PO SCH (08:45)
[2017-11-10] MEDS: Insulin Aspart 100 Units/ML 3 ML Pen SUBCUT SCH ×3 (08:46→17:59)
[2017-11-10] MEDS: Insulin Detemir 100 Units/ML 3 ML Pen SUBCUT SCH (20:57)
[2017-11-10] MEDS: Melatonin 3 MG Tab PO SCH (20:58)
[2017-11-10] MEDS: atorvaSTATin 40 MG Tab PO SCH (20:58)
[2017-11-11] MEDS: Cholecalciferol (Vitamin D3) 400 Unit Tab PO SCH (09:03)
[2017-11-11] MEDS: Metoprolol Succinate 50 MG Tab.ER PO SCH (09:03)
[2017-11-11] MEDS: Lisinopril 5 MG Tab PO SCH (09:03)
[2017-11-11] MEDS: amLODIPine 5 MG Tab PO SCH (09:03)
[2017-11-11] MEDS: Ferrous Sulfate 325 MG Tab PO SCH (09:03)
[2017-11-11] MEDS: Insulin Aspart 100 Units/ML 3 ML Pen SUBCUT SCH ×3 (09:04→18:07)
[2017-11-11] MEDS: Potassium Chloride 10 MEQ Tab.ER PO SCH (09:04)
[2017-11-11] MEDS: Fenofibrate,Micronized 134 MG Cap PO SCH (09:04)
[2017-11-11] MEDS: Furosemide 40 MG Tab PO SCH (09:04)
[2017-11-11] MEDS: Aspirin 81 MG Tab.EC PO SCH (09:04)
[2017-11-11] MEDS: Insulin Detemir 100 Units/ML 3 ML Pen SUBCUT SCH (20:35)
[2017-11-11] MEDS: atorvaSTATin 40 MG Tab PO SCH (20:36)
[2017-11-11] MEDS: Melatonin 3 MG Tab PO SCH (20:36)
[2017-11-11] MEDS: Menthol/Methyl Salicylate 85 GM Tube TOP PRN (20:45)
[2017-11-12] MEDS: Metoprolol Succinate 50 MG Tab.ER PO SCH (08:36)
[2017-11-12] MEDS: Aspirin 81 MG Tab.EC PO SCH (08:36)
[2017-11-12] MEDS: Fenofibrate,Micronized 134 MG Cap PO SCH (08:37)
[2017-11-12] MEDS: Furosemide 40 MG Tab PO SCH (08:37)
[2017-11-12] MEDS: Insulin Aspart 100 Units/ML 3 ML Pen SUBCUT SCH ×3 (08:37→18:12)
[2017-11-12] MEDS: Potassium Chloride 10 MEQ Tab.ER PO SCH (08:37)
[2017-11-12] MEDS: Ferrous Sulfate 325 MG Tab PO SCH (08:37)
[2017-11-12] MEDS: amLODIPine 5 MG Tab PO SCH (08:37)
[2017-11-12] MEDS: Cholecalciferol (Vitamin D3) 400 Unit Tab PO SCH (08:37)
[2017-11-12] MEDS: Lisinopril 5 MG Tab PO SCH (08:37)
[2017-11-12] MEDS: Insulin Detemir 100 Units/ML 3 ML Pen SUBCUT SCH (20:14)
[2017-11-12] MEDS: Melatonin 3 MG Tab PO SCH (20:15)
[2017-11-12] MEDS: atorvaSTATin 40 MG Tab PO SCH (20:15)
[2017-11-12] MEDS: Menthol/Methyl Salicylate 85 GM Tube TOP PRN (20:16)
[2017-11-13] MEDS: Furosemide 40 MG Tab PO SCH (08:26)
[2017-11-13] MEDS: Lisinopril 5 MG Tab PO SCH (08:26)
[2017-11-13] MEDS: Metoprolol Succinate 50 MG Tab.ER PO SCH (08:26)
[2017-11-13] MEDS: amLODIPine 5 MG Tab PO SCH (08:26)
[2017-11-13] MEDS: Aspirin 81 MG Tab.EC PO SCH (08:27)
[2017-11-13] MEDS: Ferrous Sulfate 325 MG Tab PO SCH (08:27)
[2017-11-13] MEDS: Potassium Chloride 10 MEQ Tab.ER PO SCH (08:27)
[2017-11-13] MEDS: Fenofibrate,Micronized 134 MG Cap PO SCH (08:27)
[2017-11-13] MEDS: Cholecalciferol (Vitamin D3) 400 Unit Tab PO SCH (08:28)
[2017-11-13] MEDS: Insulin Aspart 100 Units/ML 3 ML Pen SUBCUT SCH ×3 (08:28→18:12)
[2017-11-13] MEDS: Melatonin 3 MG Tab PO SCH (20:08)
[2017-11-13] MEDS: atorvaSTATin 40 MG Tab PO SCH (20:09)
[2017-11-13] MEDS: Insulin Detemir 100 Units/ML 3 ML Pen SUBCUT SCH (20:09)
[2017-11-13] MEDS: LORazepam 0.5 MG Tab PO PRN (20:09)
[2017-11-13] MEDS: traZODone 50 MG Tab PO SCH (20:09)
[2017-11-14] MEDS: Lisinopril 5 MG Tab PO SCH (08:13)
[2017-11-14] MEDS: Fenofibrate,Micronized 134 MG Cap PO SCH (08:13)
[2017-11-14] MEDS: Furosemide 40 MG Tab PO SCH (08:13)
[2017-11-14] MEDS: Metoprolol Succinate 50 MG Tab.ER PO SCH (08:14)
[2017-11-14] MEDS: Aspirin 81 MG Tab.EC PO SCH (08:14)
[2017-11-14] MEDS: Potassium Chloride 10 MEQ Tab.ER PO SCH (08:14)
[2017-11-14] MEDS: Ferrous Sulfate 325 MG Tab PO SCH (08:14)
[2017-11-14] MEDS: amLODIPine 5 MG Tab PO SCH (08:14)
[2017-11-14] MEDS: Cholecalciferol (Vitamin D3) 400 Unit Tab PO SCH (08:14)
[2017-11-14] MEDS: Insulin Aspart 100 Units/ML 3 ML Pen SUBCUT SCH ×3 (08:21→17:48)
[2017-11-14] MEDS: Insulin Detemir 100 Units/ML 3 ML Pen SUBCUT SCH (19:55)
[2017-11-14] MEDS: atorvaSTATin 40 MG Tab PO SCH (19:56)
[2017-11-14] MEDS: Melatonin 3 MG Tab PO SCH (19:56)
[2017-11-14] MEDS: traZODone 50 MG Tab PO SCH (19:56)
[2017-11-14] MEDS: Menthol/Methyl Salicylate 85 GM Tube TOP PRN (20:05)
[2017-11-15] MEDS: Lisinopril 5 MG Tab PO SCH (08:56)
[2017-11-15] MEDS: amLODIPine 5 MG Tab PO SCH (08:56)
[2017-11-15] MEDS: Potassium Chloride 10 MEQ Tab.ER PO SCH (08:56)
[2017-11-15] MEDS: Aspirin 81 MG Tab.EC PO SCH (08:56)
[2017-11-15] MEDS: Furosemide 40 MG Tab PO SCH (08:57)
[2017-11-15] MEDS: Cholecalciferol (Vitamin D3) 400 Unit Tab PO SCH (08:57)
[2017-11-15] MEDS: Fenofibrate,Micronized 134 MG Cap PO SCH (08:57)
[2017-11-15] MEDS: Ferrous Sulfate 325 MG Tab PO SCH (08:57)
[2017-11-15] MEDS: Metoprolol Succinate 50 MG Tab.ER PO SCH (08:58)
[2017-11-15] MEDS: Insulin Aspart 100 Units/ML 3 ML Pen SUBCUT SCH ×3 (09:00→18:03)
[2017-11-15] MEDS: Insulin Detemir 100 Units/ML 3 ML Pen SUBCUT SCH (20:27)
[2017-11-15] MEDS: Melatonin 3 MG Tab PO SCH (20:28)
[2017-11-15] MEDS: atorvaSTATin 40 MG Tab PO SCH (20:28)
[2017-11-15] MEDS: traZODone 50 MG Tab PO SCH (20:28)
[2017-11-15] MEDS: Menthol/Methyl Salicylate 85 GM Tube TOP PRN (20:29)
[2017-11-16] MEDS: Insulin Aspart 100 Units/ML 3 ML Pen SUBCUT SCH ×3 (09:03→17:40)
[2017-11-16] MEDS: Aspirin 81 MG Tab.EC PO SCH (09:05)
[2017-11-16] MEDS: amLODIPine 5 MG Tab PO SCH (09:06)
[2017-11-16] MEDS: Ferrous Sulfate 325 MG Tab PO SCH (09:06)
[2017-11-16] MEDS: Cholecalciferol (Vitamin D3) 400 Unit Tab PO SCH (09:06)
[2017-11-16] MEDS: Lisinopril 5 MG Tab PO SCH (09:06)
[2017-11-16] MEDS: Furosemide 40 MG Tab PO SCH (09:06)
[2017-11-16] MEDS: Metoprolol Succinate 50 MG Tab.ER PO SCH (09:06)
[2017-11-16] MEDS: Fenofibrate,Micronized 134 MG Cap PO SCH (09:06)
[2017-11-16] MEDS: Potassium Chloride 10 MEQ Tab.ER PO SCH (09:06)
[2017-11-16] MEDS: Insulin Detemir 100 Units/ML 3 ML Pen SUBCUT SCH (21:01)
[2017-11-16] MEDS: traZODone 50 MG Tab PO SCH (21:02)
[2017-11-16] MEDS: Melatonin 3 MG Tab PO SCH (21:02)
[2017-11-16] MEDS: atorvaSTATin 40 MG Tab PO SCH (21:02)
[2017-11-17] MEDS: Acetaminophen 500 MG Tab PO PRN (03:50)
[2017-11-17] MEDS: Furosemide 40 MG Tab PO SCH (09:08)
[2017-11-17] MEDS: Metoprolol Succinate 50 MG Tab.ER PO SCH (09:08)
[2017-11-17] MEDS: Fenofibrate,Micronized 134 MG Cap PO SCH (09:08)
[2017-11-17] MEDS: Aspirin 81 MG Tab.EC PO SCH (09:08)
[2017-11-17] MEDS: Potassium Chloride 10 MEQ Tab.ER PO SCH (09:09)
[2017-11-17] MEDS: Cholecalciferol (Vitamin D3) 400 Unit Tab PO SCH (09:09)
[2017-11-17] MEDS: amLODIPine 5 MG Tab PO SCH (09:09)
[2017-11-17] MEDS: Lisinopril 5 MG Tab PO SCH (09:09)
[2017-11-17] MEDS: Insulin Aspart 100 Units/ML 3 ML Pen SUBCUT SCH ×3 (09:10→17:00)
[2017-11-17] MEDS: Ferrous Sulfate 325 MG Tab PO SCH (09:10)
[2017-11-17] MEDS: Insulin Detemir 100 Units/ML 3 ML Pen SUBCUT SCH (21:12)
[2017-11-17] MEDS: atorvaSTATin 40 MG Tab PO SCH (21:13)
[2017-11-17] MEDS: traZODone 50 MG Tab PO SCH (21:13)
[2017-11-17] MEDS: LORazepam 0.5 MG Tab PO PRN (21:13)
[2017-11-17] MEDS: Melatonin 3 MG Tab PO SCH (21:13)
[2017-11-18] MEDS: Fenofibrate,Micronized 134 MG Cap PO SCH (10:32)
[2017-11-18] MEDS: Potassium Chloride 10 MEQ Tab.ER PO SCH (10:32)
[2017-11-18] MEDS: Aspirin 81 MG Tab.EC PO SCH (10:33)
[2017-11-18] MEDS: Lisinopril 5 MG Tab PO SCH (10:33)
[2017-11-18] MEDS: Furosemide 40 MG Tab PO SCH (10:33)
[2017-11-18] MEDS: amLODIPine 5 MG Tab PO SCH (10:33)
[2017-11-18] MEDS: Ferrous Sulfate 325 MG Tab PO SCH (10:33)
[2017-11-18] MEDS: Cholecalciferol (Vitamin D3) 400 Unit Tab PO SCH (10:33)
[2017-11-18] MEDS: Metoprolol Succinate 50 MG Tab.ER PO SCH (10:33)
[2017-11-18] MEDS: Insulin Aspart 100 Units/ML 3 ML Pen SUBCUT SCH ×3 (10:34→17:17)
[2017-11-18] MEDS: Insulin Detemir 100 Units/ML 3 ML Pen SUBCUT SCH (20:13)
[2017-11-18] MEDS: traZODone 50 MG Tab PO SCH (20:14)
[2017-11-18] MEDS: LORazepam 0.5 MG Tab PO PRN (20:14)
[2017-11-18] MEDS: atorvaSTATin 40 MG Tab PO SCH (20:14)
[2017-11-18] MEDS: Melatonin 3 MG Tab PO SCH (20:14)
[2017-11-19] MEDS: Insulin Aspart 100 Units/ML 3 ML Pen SUBCUT SCH ×3 (07:42→17:30)
[2017-11-19] MEDS: Metoprolol Succinate 50 MG Tab.ER PO SCH (07:43)
[2017-11-19] MEDS: Lisinopril 5 MG Tab PO SCH (07:44)
[2017-11-19] MEDS: Aspirin 81 MG Tab.EC PO SCH (07:44)
[2017-11-19] MEDS: Cholecalciferol (Vitamin D3) 400 Unit Tab PO SCH (07:44)
[2017-11-19] MEDS: Potassium Chloride 10 MEQ Tab.ER PO SCH (07:44)
[2017-11-19] MEDS: Ferrous Sulfate 325 MG Tab PO SCH (07:44)
[2017-11-19] MEDS: Fenofibrate,Micronized 134 MG Cap PO SCH (07:44)
[2017-11-19] MEDS: amLODIPine 5 MG Tab PO SCH (07:44)
[2017-11-19] MEDS: Furosemide 40 MG Tab PO SCH (07:44)
[2017-11-19] MEDS: traZODone 50 MG Tab PO SCH (19:19)
[2017-11-19] MEDS: LORazepam 0.5 MG Tab PO PRN (19:19)
[2017-11-19] MEDS: Melatonin 3 MG Tab PO SCH (19:19)
[2017-11-19] MEDS: Insulin Detemir 100 Units/ML 3 ML Pen SUBCUT SCH (19:19)
[2017-11-19] MEDS: atorvaSTATin 40 MG Tab PO SCH (19:20)
[2017-11-20] MEDS: Lisinopril 5 MG Tab PO SCH (08:29)
[2017-11-20] MEDS: Potassium Chloride 10 MEQ Tab.ER PO SCH (08:29)
[2017-11-20] MEDS: Ferrous Sulfate 325 MG Tab PO SCH (08:30)
[2017-11-20] MEDS: Fenofibrate,Micronized 134 MG Cap PO SCH (08:30)
[2017-11-20] MEDS: Cholecalciferol (Vitamin D3) 400 Unit Tab PO SCH (08:30)
[2017-11-20] MEDS: Metoprolol Succinate 50 MG Tab.ER PO SCH (08:30)
[2017-11-20] MEDS: Furosemide 40 MG Tab PO SCH (08:30)
[2017-11-20] MEDS: amLODIPine 5 MG Tab PO SCH (08:30)
[2017-11-20] MEDS: Insulin Aspart 100 Units/ML 3 ML Pen SUBCUT SCH ×3 (08:30→17:52)
[2017-11-20] MEDS: Aspirin 81 MG Tab.EC PO SCH (08:30)
[2017-11-20] MEDS: Melatonin 3 MG Tab PO SCH (19:47)
[2017-11-20] MEDS: traZODone 50 MG Tab PO SCH (19:48)
[2017-11-20] MEDS: atorvaSTATin 40 MG Tab PO SCH (19:48)
[2017-11-20] MEDS: LORazepam 0.5 MG Tab PO PRN (19:48)
[2017-11-20] MEDS: Insulin Detemir 100 Units/ML 3 ML Pen SUBCUT SCH (19:49)
[2017-11-20] MEDS: Menthol/Methyl Salicylate 85 GM Tube TOP PRN (20:05)
[2017-11-20] MEDS: Acetaminophen 500 MG Tab PO PRN (23:43)
[2017-11-21] MEDS: Fenofibrate,Micronized 134 MG Cap PO SCH (08:08)
[2017-11-21] MEDS: Insulin Aspart 100 Units/ML 3 ML Pen SUBCUT SCH ×3 (08:08→17:16)
[2017-11-21] MEDS: Furosemide 40 MG Tab PO SCH (08:08)
[2017-11-21] MEDS: Metoprolol Succinate 50 MG Tab.ER PO SCH (08:09)
[2017-11-21] MEDS: Cholecalciferol (Vitamin D3) 400 Unit Tab PO SCH (08:09)
[2017-11-21] MEDS: Potassium Chloride 10 MEQ Tab.ER PO SCH (08:09)
[2017-11-21] MEDS: Ferrous Sulfate 325 MG Tab PO SCH (08:09)
[2017-11-21] MEDS: amLODIPine 5 MG Tab PO SCH (08:09)
[2017-11-21] MEDS: Aspirin 81 MG Tab.EC PO SCH (08:09)
[2017-11-21] MEDS: Melatonin 3 MG Tab PO SCH (19:36)
[2017-11-21] MEDS: atorvaSTATin 40 MG Tab PO SCH (19:36)
[2017-11-21] MEDS: LORazepam 0.5 MG Tab PO PRN (19:37)
[2017-11-21] MEDS: traZODone 50 MG Tab PO SCH (19:37)
[2017-11-21] MEDS: Insulin Detemir 100 Units/ML 3 ML Pen SUBCUT SCH (19:37)
[2017-11-21] MEDS: Acetaminophen 500 MG Tab PO PRN (19:37)
[2017-11-22] MEDS: Metoprolol Succinate 50 MG Tab.ER PO SCH (08:16)
[2017-11-22] MEDS: amLODIPine 5 MG Tab PO SCH (08:16)
[2017-11-22] MEDS: Fenofibrate,Micronized 134 MG Cap PO SCH (08:16)
[2017-11-22] MEDS: Cholecalciferol (Vitamin D3) 400 Unit Tab PO SCH (08:16)
[2017-11-22] MEDS: Insulin Aspart 100 Units/ML 3 ML Pen SUBCUT SCH ×3 (08:17→18:01)
[2017-11-22] MEDS: Potassium Chloride 10 MEQ Tab.ER PO SCH (08:17)
[2017-11-22] MEDS: Furosemide 40 MG Tab PO SCH (08:17)
[2017-11-22] MEDS: Aspirin 81 MG Tab.EC PO SCH (08:17)
[2017-11-22] MEDS: Ferrous Sulfate 325 MG Tab PO SCH (08:17)
--- NOTE | 2017-11-22 10:03 | PN ---
Progress Note for MYRIAM Heard AUS Date: 11/22/2017 Room #: VM.218 SUBJECTIVE: The patient is feeling better. She did finally sleep last night. It was noted that her renal function when checked on 11/20/2017, had her creatinine go up to 2.7 and so we had stopped her lisinopril and switched her to Cardura for blood pressure control. The patient has had a little bit difficult time drinking because of her dysphagia and need for video swallow was delayed a week because of equipment malfunction. OBJECTIVE: Vital Signs: Temperature is 36.4, pulse 66, and blood pressure is 131/46. Heart: Regular rate. Lungs: Clear. Musculoskeletal: The patient has minimal movement of her left hand. She has been standing, but has not walked yet. Neurologic: She does have left facial droop. IMPRESSION: 1. Right cerebrovascular accident with left hemiparesis. 2. Hypertension. 3. Chronic kidney disease, stage 3-4. 4. Type 2 diabetes mellitus. 5. Insomnia. 6. Dysphagia. PLAN: We will continue the Cardura. We will wait for lab work to be done tomorrow. She is encouraged to push fluids. We are also going for video swallow on the patient. The patient did meet with Care Planning, and she will stay here until her Medicare days are used up before considering long-term care, as it does not seem like she will be able to return to her home environment in the near future. GM11/22/2017 08:22:06 MODL: 11/22/2017 08:43:04 /[id number] GEE
[2017-11-22] MEDS: atorvaSTATin 40 MG Tab PO SCH (19:42)
[2017-11-22] MEDS: Melatonin 3 MG Tab PO SCH (19:42)
[2017-11-22] MEDS: Acetaminophen 500 MG Tab PO PRN (19:42)
[2017-11-22] MEDS: LORazepam 0.5 MG Tab PO PRN (19:42)
[2017-11-22] MEDS: traZODone 50 MG Tab PO SCH (19:43)
[2017-11-22] MEDS: Insulin Detemir 100 Units/ML 3 ML Pen SUBCUT SCH (19:43)
--- NOTE | 2017-11-23 08:18 | PCM.SN ---
- Free Text/Narrative Note: Lab reviewed from today. Hgb dropped to 8.8, Cr same at 2.8 and BUN elevated now to 78. Will stop her aspirin. her Brilinta has been on hold since admission. We're still awaiting heme stool testing. We will start her on protonix for possible gi bleed. Encourage hydration. I'm hoping she can see her autocad today, or soon. We had stopped her JAM inhibitor and placed her on cardura for BP control, which has been working.
[2017-11-23] MEDS: Potassium Chloride 10 MEQ Tab.ER PO SCH (08:32)
[2017-11-23] MEDS: Ferrous Sulfate 325 MG Tab PO SCH (08:32)
[2017-11-23] MEDS: amLODIPine 5 MG Tab PO SCH (08:32)
[2017-11-23] MEDS: Furosemide 40 MG Tab PO SCH (08:32)
[2017-11-23] MEDS: Fenofibrate,Micronized 134 MG Cap PO SCH (08:32)
[2017-11-23] MEDS: Cholecalciferol (Vitamin D3) 400 Unit Tab PO SCH (08:33)
[2017-11-23] MEDS: Metoprolol Succinate 50 MG Tab.ER PO SCH (08:33)
[2017-11-23] MEDS: Pantoprazole 40 MG Tab.CR PO SCH (08:35)
[2017-11-23] MEDS: Insulin Aspart 100 Units/ML 3 ML Pen SUBCUT SCH ×3 (08:35→17:42)
[2017-11-23] MEDS: Aspirin 81 MG Tab.EC PO SCH (08:49)
[2017-11-23] MEDS ORDERED: Sodium Chloride 0.9% 1,000 ML IV ONE (11:00)
[2017-11-23] MEDS: LORazepam 0.5 MG Tab PO PRN (19:37)
[2017-11-23] MEDS: Acetaminophen 500 MG Tab PO PRN (19:37)
[2017-11-23] MEDS: Insulin Detemir 100 Units/ML 3 ML Pen SUBCUT SCH (19:39)
[2017-11-23] MEDS: traZODone 50 MG Tab PO SCH (19:39)
[2017-11-23] MEDS: atorvaSTATin 40 MG Tab PO SCH (19:39)
[2017-11-23] MEDS: Melatonin 3 MG Tab PO SCH (19:39)
[2017-11-24] MEDS: Potassium Chloride 10 MEQ Tab.ER PO SCH (08:15)
[2017-11-24] MEDS: Pantoprazole 40 MG Tab.CR PO SCH (08:15)
[2017-11-24] MEDS: Cholecalciferol (Vitamin D3) 400 Unit Tab PO SCH (08:15)
[2017-11-24] MEDS: Metoprolol Succinate 50 MG Tab.ER PO SCH (08:15)
[2017-11-24] MEDS: Ferrous Sulfate 325 MG Tab PO SCH (08:15)
[2017-11-24] MEDS: Fenofibrate,Micronized 134 MG Cap PO SCH (08:16)
[2017-11-24] MEDS: amLODIPine 5 MG Tab PO SCH (08:16)
[2017-11-24] MEDS: Insulin Aspart 100 Units/ML 3 ML Pen SUBCUT SCH ×3 (08:16→17:20)
[2017-11-24] MEDS: Sodium Chloride 0.9% 10 ML Syringe FLUSH PRN (08:27)
[2017-11-24] MEDS ORDERED: Sodium Chloride 0.9% 1,000 ML IV SCH (10:15)
--- NOTE | 2017-11-24 10:34 | PN ---
Progress Note for MYRIAM Heard AUS Date: 11/24/2017 Room #: VM.218 REPORT TITLE: [facility] Progress Note BODY AFTER REPORT TITLE: SUBJECTIVE: An 82-year-old white female I was asked to see by Dr. Tate today. They need to follow up her acute kidney injury with elevated creatinine and BUN. She has been hospitalized here since the last part of October with a left-sided CVA and IN. This week, she was noted to have an elevated creatinine up to 2.8 and elevated BUN. Her lisinopril had been stopped earlier in the week. Her Lasix was stopped. She had seen Dr. Cruz. She was given 1 L of IV fluids normal saline yesterday, and labs were repeated this morning. She is feeling well today. She is not short of breath. No chest pain or discomfort. No abdominal pain. No nausea or vomiting. She denies any fluid retention. OBJECTIVE: General: She is alert. Vital Signs: Stable. Her blood pressure is 113/58, pulse is 60. She is afebrile. Heart: Regular rate and rhythm. Lungs: Clear to auscultation. Abdomen: Soft and nontender. No masses. Extremities: No edema. She has BIANCA hose on. She does have left-sided weakness, especially left arm. LABORATORY DATA: Hemoglobin today is 8.6, yesterday it was 8.8. BUN today is 71, BUN yesterday was 73. Creatinine today is 2.7, stable. Electrolytes are normal. ASSESSMENT: 1. Acute kidney injury with elevated creatinine and BUN-stable. 2. Right cerebrovascular accident with left hemiparesis, stable. 3. Hypertension, stable. PLAN: We will give her another liter of IV fluids today. We will monitor her CBC and BMP tomorrow. Stool Hemoccults are pending. If her lab work is not improving or significantly worsens, we will need to consider transfer to [place] per Dr. Cruz's recommendations. My assumption is that he was recommending possible dialysis for further evaluation of her acute kidney injury. This was discussed with her. She is not sure she wants to go back to [place]. We will also discuss this with her son, Dru. FM: 11/24/2017 10:12:31 MODL: 11/24/2017 10:25:49 /[id number]
[2017-11-24] MEDS: LORazepam 0.5 MG Tab PO PRN (21:30)
[2017-11-24] MEDS: atorvaSTATin 40 MG Tab PO SCH (21:30)
[2017-11-24] MEDS: Melatonin 3 MG Tab PO SCH (21:30)
[2017-11-24] MEDS: Acetaminophen 500 MG Tab PO PRN (21:31)
[2017-11-24] MEDS: traZODone 50 MG Tab PO SCH (21:31)
[2017-11-24] MEDS: Insulin Detemir 100 Units/ML 3 ML Pen SUBCUT SCH (21:34)
[2017-11-25] MEDS: Fenofibrate,Micronized 134 MG Cap PO SCH (07:29)
[2017-11-25] MEDS: Ferrous Sulfate 325 MG Tab PO SCH (07:29)
[2017-11-25] MEDS: Metoprolol Succinate 50 MG Tab.ER PO SCH (07:29)
[2017-11-25] MEDS: Potassium Chloride 10 MEQ Tab.ER PO SCH (07:30)
[2017-11-25] MEDS ORDERED: Pantoprazole 40 MG Tab.CR PO SCH (07:30)
[2017-11-25] MEDS: amLODIPine 5 MG Tab PO SCH (07:30)
[2017-11-25] MEDS: Cholecalciferol (Vitamin D3) 400 Unit Tab PO SCH (07:30)
[2017-11-25] MEDS: Insulin Aspart 100 Units/ML 3 ML Pen SUBCUT SCH ×3 (07:30→17:34)
[2017-11-25] MEDS: Sodium Chloride 0.9% 10 ML Syringe FLUSH PRN (07:36)
[2017-11-25] MEDS: Acetaminophen 500 MG Tab PO PRN (19:39)
[2017-11-25] MEDS: Melatonin 3 MG Tab PO SCH (19:40)
[2017-11-25] MEDS: Insulin Detemir 100 Units/ML 3 ML Pen SUBCUT SCH (19:40)
[2017-11-25] MEDS: traZODone 50 MG Tab PO SCH (19:40)
[2017-11-25] MEDS: atorvaSTATin 40 MG Tab PO SCH (19:40)
[2017-11-25] MEDS: LORazepam 0.5 MG Tab PO PRN (19:46)
[2017-11-26] MEDS: Pantoprazole 40 MG Tab.CR PO SCH ×2 (07:21→08:00)
[2017-11-26] MEDS: Potassium Chloride 10 MEQ Tab.ER PO SCH (08:00)
[2017-11-26] MEDS: Fenofibrate,Micronized 134 MG Cap PO SCH (08:00)
[2017-11-26] MEDS: amLODIPine 5 MG Tab PO SCH (08:00)
[2017-11-26] MEDS: Cholecalciferol (Vitamin D3) 400 Unit Tab PO SCH (08:01)
[2017-11-26] MEDS: Insulin Aspart 100 Units/ML 3 ML Pen SUBCUT SCH ×3 (08:01→17:16)
[2017-11-26] MEDS: Metoprolol Succinate 50 MG Tab.ER PO SCH (08:01)
[2017-11-26] MEDS: Ferrous Sulfate 325 MG Tab PO SCH (08:01)
--- NOTE | 2017-11-26 10:27 | PN ---
Progress Note for MYRIAM M AUS Date: 11/26/2017 Room #: VM.218 SUBJECTIVE: The patient was noted to have worsening of her renal function toward the end of last week. She was seen by Dr. Cruz in the clinic as an outpatient. He had recommended IV hydration, stopping her Lasix. By next morning, her renal function had just improved slightly. She was not having problems with shortness of breath. Dr. Cody on-call provider had opted to continue to rehydrate her with another liter of IV fluids, which she tolerated and this patient was not very interested in eager aggressive care for her kidneys. To note, a stool had been obtained that was negative for Hemoccult. OBJECTIVE: Vital Signs: Her pulse is 62, temperature is 36.6, blood pressure is 104/59, sats are 95% on room air, respiratory rate is 17. Skin: [place], warm, and dry. Heart: Regular rate and rhythm without murmurs or bruits. Lungs: Clear to auscultation. Abdomen: Soft. Neurologic: She is hemiparetic on her left side as well as has some dysarthria. Psychiatric: Her mood is good. LABORATORY DATA: Today shows that her hemoglobin has just dropped slightly at 7.9, white blood cell count 6.2, platelets are 227. Sodium is 143, potassium 3.9, creatinine 2.4, BUN 53. GFR is currently 19. IMPRESSION: 1. Acute right cerebrovascular accident with left hemiparesis. 2. Acute kidney injury. 3. Anemia, multifactorial. 4. Type 2 diabetes mellitus. 5. Chronic kidney disease. PLAN: The patient will have a renal ultrasound today. She has a video swallow today. We will recheck her lab work tomorrow. Her stool was heme negative. We will see what her iron storage tests are. We may need to add additional iron replacement. If the patient needs to have infusions with Venofer, then this may have to be done as an outpatient. We will confer with Dr. Cruz once tomorrow's lab work is back and results. GM11/26/2017 08:24:24 MODL: 11/26/2017 09:43:37 /[id number]
[2017-11-26] MEDS: Insulin Detemir 100 Units/ML 3 ML Pen SUBCUT SCH (19:29)
[2017-11-26] MEDS: Melatonin 3 MG Tab PO SCH (19:30)
[2017-11-26] MEDS: atorvaSTATin 40 MG Tab PO SCH (19:30)
[2017-11-26] MEDS: Acetaminophen 500 MG Tab PO PRN (19:30)
[2017-11-26] MEDS: traZODone 50 MG Tab PO SCH (19:30)
[2017-11-26] MEDS: LORazepam 0.5 MG Tab PO PRN (19:31)
[2017-11-26 20:43] LABS: CHLORIDE,CL 102 mmol/L (98-107); SODIUM,NA 136 mmol/L (136-145)
[2017-11-26] MEDS ORDERED: Furosemide 20 MG/2 ML VIAL IV STA (21:32)
[2017-11-26] MEDS: Sodium Chloride 0.9% 10 ML Syringe FLUSH PRN (21:41)
--- NOTE | 2017-11-26 21:49 | PCM.SN ---
- Free Text/Narrative Note: Called by the ER provider after patient had been seen for a rapid response. He had been called by nursing due to the patient having sudden onset shortness of breath around 7 pm tonight. No chest pain. She initially had saturations in the 70s and required a non-rebreather. She was evaluated and labs and CXR were obtained. She has now been weaned to nasal cannula. At the time of my arrival, the patient and her son note that she is feeling much better. She is still short of breath but much less so than previous. Labs are notable for an elevated BNP and mildly elevated troponin. Her creatinine is stable from earlier but BUN is improved. CXR shows evidence of moderate fluid overload. Patient is tachypneic but is able to speak in complete sentences. Mucous membranes are moist. Heart with RRR, normal S1 and S2, no m/r/g. Lungs with crackles at the bases. No LE edema. Patient's lasix was just discontinued at the end of last week due to her worsening renal function. It was recommended by Dr. Cruz that she be transferred to [facility] for any increase in renal issues. Discussed this with the patient and her son and they decline transfer to [place] at this time. They would rather do what we can here first. Discussed concern about drying out the kidneys too much with restarting the lasix but the necessity at this point due to the fluid in her lungs. They voice understanding and are in agreement with low dose lasix. Will give [address] also [address] a urinary catheter for accurate I/O monitoring. Patient will have labs in the morning. If her respiratory status does not continue to improve over the next hour, may need to consider BiPap for further management. Although it is confirmed that she is DNI , she is ok with BiPap. Discussed that this typically would warrant transfer to [place] and she hesitates on that again but would like to try the BiPap even short term to see if it helps. Nursing will call with an update in 1 hour and we will go from there.
--- NOTE | 2017-11-26 22:52 | PCM.SN ---
- Free Text/Narrative Note: Nursing called with update. RR down to 18. O2 sats up to 98% on 1 L of oxygen. Still having some abdominal breathing but better than previous. All of this is reassuring. Will hold off on BiPap at this time and continue with nasal cannula. Nursing to call me as well as another rapid response if patient respiratory status decompensates at which point we will start BiPap. Otherwise, no further intervention tonight.
[2017-11-27] MEDS: Cholecalciferol (Vitamin D3) 400 Unit Tab PO SCH (07:19)
[2017-11-27] MEDS: Potassium Chloride 10 MEQ Tab.ER PO SCH (07:19)
[2017-11-27] MEDS: Pantoprazole 40 MG Tab.CR PO SCH (07:19)
[2017-11-27] MEDS: Fenofibrate,Micronized 134 MG Cap PO SCH (07:19)
[2017-11-27] MEDS: amLODIPine 5 MG Tab PO SCH (07:19)
[2017-11-27] MEDS: Ferrous Sulfate 325 MG Tab PO SCH (07:20)
[2017-11-27] MEDS: Metoprolol Succinate 50 MG Tab.ER PO SCH (07:20)
[2017-11-27] MEDS: Insulin Aspart 100 Units/ML 3 ML Pen SUBCUT SCH ×3 (07:22→17:59)
--- NOTE | 2017-11-27 08:26 | PN ---
Progress Note for MYRIAM Heard AUS Date: 11/25/2017 Room #: VM.218 SUBJECTIVE: An 82-year-old white female is being followed this week for acute renal failure on top of chronic kidney disease. Her creatinine has been in the 2.8 range for several days with an elevated BUN in the 70s. She has been given IV fluids 1 L each day on Sunday evening and also on Sunday. She is doing about the same. Feels about the same. OBJECTIVE: General: She is alert. She is afebrile. Vital signs: Stable. Blood pressure is 114/43, pulse is 61 and regular. LABORATORY: Today shows a hemoglobin of 8.0 I'm assuming that dilutional and her stool Hemoccults have been negative. Her creatinine is improved to 2.4 today and her BUN is down to 6 today, a significant improvement. ASSESSMENT: 1. Acute renal failure/acute kidney injury-improved. 2. Right cerebrovascular accident with left hemiparesis. 3. Hypertension. PLAN: We will hold any further IV fluids at this time. We will order a renal ultrasound for tomorrow because of her acute renal failure. Repeat lab work tomorrow and monitor her condition. FM: 11/25/2017 12:40:32 MODL: 11/25/2017 12:52:03 /[id number]
--- NOTE | 2017-11-27 09:12 | PN ---
Progress Note for MYRIAM Heard AUS Date: 11/27/2017 Room #: VM.218 SUBJECTIVE: The patient during the night had an episode of acute shortness of breath, which was from fluid overload from IV hydration from her recent acute kidney injury attempts to resuscitate. She was given Lasix 10 mg IV and Greenfield catheter was placed and oxygen was placed. She did get better. She denied any chest pain. Her troponin was noted to be elevated, which is felt to be due to reduced renal function. ProBNP had been elevated at 8568, which had been essentially the same as what it was on 10/19/2017. EKG showed no acute changes when compared to her previous EKG on 10/19/2017. It was actually essentially unchanged. There was some left ventricular repolarization with some ST changes which are nonspecific and actually EKG done currently look the same. The patient is pain free. The patient was reluctant to go to [place] last evening, but this morning she would agree to go. She did have a renal ultrasound done yesterday, which did show some renal cysts and some ureteral jets that were present. The patient did have a Greenfield catheter placed. OBJECTIVE: Vital Signs: Her temperature is 36.8, pulse 65, blood pressure is 134/59. Her O2 sats are 96 on 1 L, pulse is 64. Patient's I and Os for the last 24 hours showed a negative balance with intake being over 2700 and output having been only 1000. Weight was not been obtained for a while. Cardiovascular: Objectively, her heart is regular rate and rhythm. Respiratory: Lungs sounds have diminished breath sounds on bases. No crackles or wheezes actually heard. Extremities: Have no edema. The patient is weak on her left side from her stroke. LABORATORY FINDINGS: This morning showed that her white blood cell count 6.7 stable, hemoglobin 8.1 stable, platelets 222, normal differential. Sodium 139, potassium 4.1, creatinine same as yesterday at 2.4. GFR is 19. BUN has improved to 46. Glucoses have ranged from 63 to 270. Her iron is low at 24. TIBC normal at 354. Percent saturation low at 6.8. Ferritin is normal at 137. LFTs are normal. Her troponin last evening had been 0.12, normal is 0.08 or less. It is pending this morning. Her proBNP had been elevated at 8568. Her chest x-ray during the night did show some dependent edema. IMPRESSION: 1. Acute congestive heart failure episode. 2. Acute kidney injury in light of chronic kidney disease. 3. Recent right cerebrovascular accident with left hemiparesis. 4. Type 2 diabetes mellitus. 5. Hypertension. PLAN: I have visited with her daughter, Kimber, who does concur the patient can go to [place]. However, I am waiting to visit with her son Dru about ability to transfer to [place]. Also, I need to talk to [facility] about ability for them to accept her since she is needing more acute care monitoring with renal function, heart failure and optimizing medications with her low hemoglobin that is persistent. The patient's code is DNR/DNI status and do respect that for her. Also of note, we do not have an dust collector attendant ability for consult here this week either, which could be an option. I do anticipate patient would come back to [facility] for continuing her rehab therapy for her stroke. GM11/27/2017 08:38:43 MODL: 11/27/2017 09:01:47 /[id number]
[2017-11-27] MEDS: Furosemide 20 MG Tab PO SCH ×2 (09:56→16:35)
--- NOTE | 2017-11-27 10:17 | PN ---
Progress Note for MYRIAM Félix AUS Date: 11/27/2017 Room #: VM.218 I did review the patient's care with Dr. Cruz and he recommended that we do continue her on Lasix 20 b.i.d. orally to see if this helps with her renal function as well as her heart failure. Her EKG did not have any acute ST changes. Her troponin had stayed the same. Today, I did let him know about the iron levels that she has and she may need IV iron versus if she would drop below 7 she would need a transfusion. Her son Dru was present, did update him about plan of care and we will continue to keep the patient on swing bed here for the time being. We will continue her Greenfield catheter for 24 hours to see about her hydration status and hope to have that discontinued tomorrow. GM11/27/2017 09:07:45 MODL: 11/27/2017 09:17:52 /[id number]
--- NOTE | 2017-11-27 12:00 | PCM.SN ---
- Free Text/Narrative Note: 11/26/2017 20:03 Called by nursing staff for a rapid response as the patient had a sudden decrease in her oxygen saturations in the low 70s and an increased respiratory rate. Upon my arrival the patient was on a nonrebreather, tachypnic with a respiratory rate in the upper 20s. The patient was able to answer questions with one-word, was not able to speak in full sentences. The patient appeared to be pale. Upon further assessment the patient's lung sounds were wet with end expiratory wheezing. The patient's breathing was paradoxical. Chest x-ray and labs were obtained. Chest x-ray showed moderate fluid overload. The patient did have a positive troponin of 0.12, however, her BNP was elevated at 8368. Arterial blood gas showed a PO2 of 67 with an oxygen saturation of 93% on the nonrebreather. It was noted in the patient's chart that her diuretic was stopped due to elevated creatinine. The patient was gently rehydrated last weekend as they felt she was a little bit dry according to provider documentation. 11/26/2016 20:47 Dr. Kell Charles was contacted by me in regards this patient as she was the on-call provider. Patient status and investigations were updated with Dr. Charles. Dr. Charles will come in and see the patient now. Family at bedside and was updated with patient's status.
[2017-11-27] MEDS: Acetaminophen 500 MG Tab PO PRN (20:21)
[2017-11-27] MEDS: traZODone 50 MG Tab PO SCH (20:21)
[2017-11-27] MEDS: Melatonin 3 MG Tab PO SCH (20:21)
[2017-11-27] MEDS: atorvaSTATin 40 MG Tab PO SCH (20:21)
[2017-11-27] MEDS: Insulin Detemir 100 Units/ML 3 ML Pen SUBCUT SCH (20:22)
[2017-11-27] MEDS: LORazepam 0.5 MG Tab PO PRN (20:22)
[2017-11-28] MEDS: Potassium Chloride 10 MEQ Tab.ER PO SCH (07:56)
[2017-11-28] MEDS: amLODIPine 5 MG Tab PO SCH (07:57)
[2017-11-28] MEDS: Fenofibrate,Micronized 134 MG Cap PO SCH (07:57)
[2017-11-28] MEDS: Metoprolol Succinate 50 MG Tab.ER PO SCH (07:57)
[2017-11-28] MEDS: Furosemide 20 MG Tab PO SCH ×2 (07:57→15:27)
[2017-11-28] MEDS: Pantoprazole 40 MG Tab.CR PO SCH (07:57)
[2017-11-28] MEDS: Ferrous Sulfate 325 MG Tab PO SCH (07:57)
[2017-11-28] MEDS: Cholecalciferol (Vitamin D3) 400 Unit Tab PO SCH (07:57)
[2017-11-28] MEDS: Insulin Aspart 100 Units/ML 3 ML Pen SUBCUT SCH ×3 (08:00→18:27)
[2017-11-28] MEDS: Acetaminophen 500 MG Tab PO PRN ×2 (08:00→20:05)
--- NOTE | 2017-11-28 09:19 | PN ---
Progress Note for MYRIAM Heard AUS Date: 11/28/2017 Room #: VM.218 SUBJECTIVE: The patient comments that she has had a little bit of a headache today, is feeling a little bit weaker. Yesterday, the family had opted to keep her here in [place] and nurse private duty had wanted to just resume oral Lasix and to keep a close eye on her creatinine, and she was going to get Venofer as an infusion. OBJECTIVE: Vital Signs: This morning, her weight was 70.12 kg. Her pulse was up to 97 from her baseline of around 80s. Blood pressure is 129/75, sat is 93% on 1 L. General: The patient does appear pale. Heart: Regular rate and rhythm. Lungs: Have diminished breath sounds on bases, but no crackles or wheezes. Abdomen: Soft, nontender. She does have a sacral ulcer on her buttocks. Please refer to the nursing notes. Neurologic: The patient does have left hemiparesis. She does have some mild dysarthria and dysphagia. IMPRESSION: 1. Acute right cerebrovascular accident with left hemiparesis. 2. Chronic kidney disease. 3. She has anemia of chronic disease, which is symptomatic now with tachycardia, headache, and weakness. PLAN: We will transfuse patient with 1 unit packed of RBCs. She was to going to get her Venofer infusion. I do not know if that happened yesterday, it is going to happen today. We will closely monitor her renal function. If it worsens, she may need transfer to [place] with nurse private duty. Other concern is that her health care is somewhat declining and it also may be optional to consider if she needs to think about hospice care. Her daughter, Kimber, was present in the room. The patient was explained the risks, benefits, alternatives of blood transfusions including risk of reactions, infections, and she did agree to proceed with a blood transfusion. We will need to carefully watch to make certain that we do not have problems with exacerbation of CHF with blood transfusion. GM11/28/2017 08:44:38 MODL: 11/28/2017 09:12:31 /[id number]
[2017-11-28] MEDS ORDERED: Furosemide 20 MG/2 ML VIAL IV ONE (15:00)
[2017-11-28] MEDS: Insulin Detemir 100 Units/ML 3 ML Pen SUBCUT SCH (20:04)
[2017-11-28] MEDS: atorvaSTATin 40 MG Tab PO SCH (20:05)
[2017-11-28] MEDS: Melatonin 3 MG Tab PO SCH (20:05)
[2017-11-28] MEDS: LORazepam 0.5 MG Tab PO PRN (20:05)
[2017-11-28] MEDS: traZODone 50 MG Tab PO SCH (20:05)
[2017-11-29] MEDS: Insulin Aspart 100 Units/ML 3 ML Pen SUBCUT SCH ×3 (08:01→17:17)
[2017-11-29] MEDS: amLODIPine 5 MG Tab PO SCH (08:02)
[2017-11-29] MEDS: Cholecalciferol (Vitamin D3) 400 Unit Tab PO SCH (08:02)
[2017-11-29] MEDS: Ferrous Sulfate 325 MG Tab PO SCH (08:02)
[2017-11-29] MEDS: Potassium Chloride 10 MEQ Tab.ER PO SCH (08:02)
[2017-11-29] MEDS: Metoprolol Succinate 50 MG Tab.ER PO SCH (08:02)
[2017-11-29] MEDS: Furosemide 20 MG Tab PO SCH ×2 (08:03→17:17)
[2017-11-29] MEDS: Pantoprazole 40 MG Tab.CR PO SCH (08:03)
[2017-11-29] MEDS: Fenofibrate,Micronized 134 MG Cap PO SCH (08:03)
--- NOTE | 2017-11-29 09:10 | PN ---
Progress Note for MYRIAM Heard AUS Date: 11/29/2017 Room #: VM.218 SUBJECTIVE: She tolerated her blood transfusion quite well yesterday. She feels like she has more energy. Her son and daughter are present in the room with her today. Apparently tomorrow, she is supposed to be going to the [facility] as her Medicare days have run out here. OBJECTIVE: Vital Signs: Her temperature is 36.4, pulse is 69, which has improved from 107, blood pressure is 139/52. Her sats are 95% on room air. Skin: Has more color to it. Heart: Regular rate and rhythm. Lungs: Clear to auscultation. No crackles or wheezes. She is still hemiparetic on her left side. LABORATORY DATA: Today shows her hemoglobin has improved to 9.0, white blood cell count 5.0, platelets are 205. Sodium 143, potassium 4.0, creatinine 2.5, GFR is 18, and BUN is 46, improved. Glucose 100. IMPRESSION: 1. Acute right cerebrovascular accident with left hemiparesis. 2. Chronic kidney disease, stage 4. 3. Anemia, multifactorial, which was symptomatic, status post transfusion. 4. Exacerbation of congestive heart failure, improved. PLAN: The patient appears stable today. We will recheck her lab work tomorrow. If stable, she should [facility]. Family is satisfied with that. GM11/29/2017 08:43:12 MODL: 11/29/2017 08:55:52 /[id number]
[2017-11-29] MEDS: Melatonin 3 MG Tab PO SCH (19:26)
[2017-11-29] MEDS: traZODone 50 MG Tab PO SCH (19:26)
[2017-11-29] MEDS: atorvaSTATin 40 MG Tab PO SCH (19:26)
[2017-11-29] MEDS: Insulin Detemir 100 Units/ML 3 ML Pen SUBCUT SCH (19:26)
[2017-11-30 05:48] VITALS: BP 151/75
[2017-11-30] MEDS: Cholecalciferol (Vitamin D3) 400 Unit Tab PO SCH (07:19)
[2017-11-30] MEDS: Metoprolol Succinate 50 MG Tab.ER PO SCH (07:20)
[2017-11-30] MEDS: Potassium Chloride 10 MEQ Tab.ER PO SCH (07:20)
[2017-11-30] MEDS: amLODIPine 5 MG Tab PO SCH (07:20)
[2017-11-30] MEDS: Fenofibrate,Micronized 134 MG Cap PO SCH (07:20)
[2017-11-30] MEDS: Pantoprazole 40 MG Tab.CR PO SCH (07:20)
[2017-11-30] MEDS: Furosemide 20 MG Tab PO SCH (07:20)
[2017-11-30] MEDS: Ferrous Sulfate 325 MG Tab PO SCH (07:20)
[2017-11-30] MEDS: Insulin Aspart 100 Units/ML 3 ML Pen SUBCUT SCH (07:21)
--- NOTE | 2017-12-01 03:57 | DISCH ---
DIAGNOSES: 1. Right cerebrovascular accident with left hemiparesis. 2. Chronic kidney disease stage 4. 3. Anemia, multifactorial, which was symptomatic. 4. Exacerbation of congestive heart failure. 5. Hypertension. 6. Acute kidney injury. 7. Type 2 diabetes mellitus on insulin. 8. Dysarthria. 9. Dysphagia. 10.Sacral ulcer decubitus. 11.Insomnia. 12.Acute myocardial infarction. 13.Coronary artery disease. 14.Vitamin D deficiency. 15.Hypomagnesemia. SUMMARY OF ADMIT HISTORY AND PHYSICAL: The patient is an 82-year-old female who had suffered a massive right CVA with left hemiparesis on 10/10/2017. She was transferred to [place] because of worsening condition. When in [place], she was also noted to have an ejection fraction of 45% with multiple regional wall motion abnormalities. The patient has had some improvement with speaking and swallowing. It was noted that she had some aspiration pneumonia that had been treated while she had been in [place]. There was no evidence of pneumonia while she was here. The patient had a sacral ulcer. Neurosurgery had consulted on her as she did have right carotid artery disease and she did have a stent placed in her right carotid artery on 10/12/2017. The patient when coming to [facility] had many changes of her blood pressure medicine and her insulin regime. She had been started on Lipitor, to note, she used to be on a statin previously, but that had been stopped due to intolerance. SUMMARY OF HOSPITAL COURSE: The patient was not able to participate in cardiac rehab from her stroke because of her limitations due to her CVA. She was noted to have some mild difficulty with swallowing and so Speech Therapy had been consulted and her diet had been adjusted to help with prevention of aspiration. Lab that was done on admission here showed her hemoglobin 10.6, sodium 139, potassium 3.4, creatinine 1.4, GFR 36, glucose 109. To note, by 10/31/2017, her creatinine got up to 3.5, it was partially felt because of resumption of her JAM inhibitor, but also the Brilinta that she was on for stroke prevention and her hydrochlorothiazide and Lasix. She was given some IV hydration to see if that would help with renal function. It did improve to down to 1.8 by 11/09; however, her hemoglobin was noted to have gone on admit from 10.1 down to 9.2 by 10/10. However, on 11/28, when she had dropped down to 7.2, that was when she had received 1 unit of packed RBCs. She had attempted a trial resumption of her lisinopril, however, that seemed to worsen her renal function again up to 2.8 on 11/23, so the lisinopril was stopped and her creatinine seemed to settle down at 2.4. It was 2.4 on 11/30/2017. Her stool had been checked for Hemoccult and it was negative. Her BUN was noted to have gone from 51 on admit up to 128 on 10/31/2017 and did go down to 39 by 11/13/2017, but then did reoccur on 11/23/2017 up to 73, then it went back to 45 by 11/30/2017. GFR on admit was 33, had gone down to 13 by 10/31/2017, had improved to 27 by 11/09, and then stabilized at 19 by 11/30/2017. The patient's potassium on admit was 3.4 and it was at 3.9 by 11/30/2017. Iron storage levels were done on 11/27/2017 that showed her iron low at 24, normal is 50 to 170. Her TIBC was 354, normal is 250 to 450. Her percent saturation was 6.8, normal is 20 to 50. Her ferritin was 137, normal is 8 to 252. Her troponin on 11/27/2017 had been 0.2, but that was felt to be multifactorial due to her renal function as her EKG had no acute ST changes. Her proBNP was elevated when checked on 10/19/2017 at 8599. When checked on 11/26/2017, it was 8568. The patient had worked with Physical Therapy. She was noted to have a very dense left hemiparesis with only ability just to stand not to walk. She had no function of her left hand or her left elbow. She did have a mild left facial droop. When seen by Speech, she was recommended to have a modified diet. Please refer to Speech's comments for exact recommendations. To note, the patient's blood sugars were somewhat variable. She did have adjustment of her insulin while she was here. Her blood pressure had also been variable and did require the resumption of Lasix for her at a low dose to help her. She did have an exacerbation of COPD after having some IV fluids to help with renal function and Catapres had been started to also help with blood pressure. The patient had been placed on Protonix empirically to prevent a GI source of bleeding or blood. She had also been taken off her aspirin because of continued anemia problems. The patient had problems with difficulty sleeping, had melatonin started, and then improved after trazodone was started. Also, she had some lorazepam to help with anxiety that she was experiencing before bedtime. The patient was noted to have decubitus ulcer on her buttocks. She was repositioned and placed on a softer mattress. She had some Tegaderm dressings placed to help with improvement. The patient did have a renal ultrasound on 11/26/2017, which basically was normal with no hydronephrosis. There were some simple renal cysts bilaterally noted. A video fluoroscopy that had been done as stated did show some abnormalities present. The patient had a chest x-ray repeated on 11/26/2017, which had shown some moderate CHF. Her lungs had greatly improved to note. At the time of discharge, her vital signs show that her pulse was 61, blood pressure 151/75, respiratory rate 18. The patient's sats were 100% on room air. MEDICATIONS: At the time of discharge will be, NovoLog 5 units subcu b.i.d. at breakfast and at supper and NovoLog 7 units at lunch. Levemir 30 units subcu at bedtime. Triamcinolone 0.1% cream topically b.i.d. p.r.n., Norvasc 5 mg daily, docusate 100 mg 1 pill daily as needed, Lotrisone 1 topical 3 times a day, vitamin D 400 units 1 pill daily, fenofibrate 145 mg 1 pill daily, Lipitor 40 mg 1 pill daily, metoprolol-XL 100 mg 1 pill daily, Senna Plus 1 pill twice a day as needed, nitroglycerin 0.4 sublingual p.r.n., Cardura 1 mg 1 pill at bedtime, Nexium 40 mg 1 pill daily, ferrous sulfate 325 one pill daily, Lasix 20 mg 1 pill twice a day, lorazepam 0.5 mg at bedtime, melatonin 6 mg 1 pill at bedtime, Icy Hot b.i.d. p.r.n., potassium chloride 10 mEq 1 pill daily, trazodone 100 mg she takes a half a pill at bedtime. To note, Dr. Cruz had seen the patient in the clinic for her chronic kidney disease and was closely aware of her renal function. The patient did require Venofer infusion of 200 mg on 11/27/2017. However, she did require blood transfusion on 11/28/2017. The patient's code level status is do not resuscitate, do not intubate. To note, patient's prognosis is fair. Her stroke is quite significant. She has had problems with anemia, which source is not truly defined who may have some renal implications, but GI source cannot be 100% ruled out. The patient on 12/03/2017 will need to have blood work done of CBC for anemia of chronic disease, BMP for hypertension, proBNP for CHF, hemoglobin A1c for type 2 diabetes mellitus, lipid profile for hypercholesterolemia. The patient does have appointments with Dr. Cruz. She also has upcoming appointments with Neurosurgery and Neurology. The patient will need attention to her wound. She will need PT, OT, speech. The patient has been somewhat hesitant about going to [facility] for aggressive workup at the present time. GM11/30/2017 08:41:37 MODL: 12/01/2017 03:55:02 /[id number]
== END 2017-11-30 10:00 | DRG 56 ==
LOC: VM.MS 13:31
PROVIDERS: ADMIT Family Medicine; ATTEND Family Medicine
PROC: 30233N1 Transfusion of Nonautologous Red Blood Cells into Peripheral Vein, Percutaneous Approach (ICD-10-PCS; principal; 2017-11-28)
DX: I69.354 Hemiplegia and hemiparesis following cerebral infarction affecting left non-dominant side (principal); I21.9 Acute myocardial infarction, unspecified; N18.4 Chronic kidney disease, stage 4 (severe); I13.0 Hypertensive heart and chronic kidney disease with heart failure and stage 1 through stage 4 chronic kidney disease, or unspecified chronic kidney disease; J44.1 Chronic obstructive pulmonary disease with (acute) exacerbation; I69.391 Dysphagia following cerebral infarction; R13.10 Dysphagia, unspecified; E11.22 Type 2 diabetes mellitus with diabetic chronic kidney disease; G47.00 Insomnia, unspecified; D50.9 Iron deficiency anemia, unspecified; L89.159 Pressure ulcer of sacral region, unspecified stage; I50.9 Heart failure, unspecified; D63.1 Anemia in chronic kidney disease; R47.1 Dysarthria and anarthria; I25.10 Atherosclerotic heart disease of native coronary artery without angina pectoris; E83.42 Hypomagnesemia; E55.9 Vitamin D deficiency, unspecified; I69.322 Dysarthria following cerebral infarction; F41.9 Anxiety disorder, unspecified; Z66 Do not resuscitate; Z79.82 Long term (current) use of aspirin; Z79.4 Long term (current) use of insulin; Z79.899 Other long term (current) drug therapy; Z88.8 Allergy status to other drugs, medicaments and biological substances
CPT/HCPCS: 36415; 36430; 36600; 51702; 71020; 71045; 74230; 76770; 80048; 80053; 82274; 82550; 82728; 82803; 82962; 83540; 83550; 83735; 83880; 84484; 85018; 85025; 86850; 86900; 86901; 86920; 86922; 92526-GN; 92610-GN; 92611-GN; 93005; 94760; 97110-GO; 97110-GP; 97112-GO; 97116-GP; 97161-GP; 97165-GO; 97168-GO; 97530-GP; 97533-GO; A9270-GY; J1756; J1815-GY; J1940; J7030; J7050; P9016

== ENCOUNTER 2018-02-01 14:48 | Inpatient (IN) | payer MEDICARE, BC ==
[2018-02-01] MEDS ORDERED: Albuterol/Ipratropium 3.0-0.5 MG/3 ML Neb Soln NEB ONE (14:59)
[2018-02-01] MEDS ORDERED: cefTRIAXone 1 GM Vial IVPUSH ONE (15:10)
[2018-02-01] MEDS ORDERED: Piperacillin/Tazobactam 3.375 GM in Sodium Chloride 0.9% 100 ML IV ONE (15:13)
--- NOTE | 2018-02-01 15:14 | EDM.PDOC ---
ED HPI GENERAL MEDICAL PROBLEM - General Stated Complaint: ASPIRATION Time Seen by Provider: 02/01/18 14:52 Source of Information: Reports: Patient, EMS, EMS Notes Reviewed History Limitations: Reports: Altered Mental Status, Respiratory Distress - History of Present Illness INITIAL COMMENTS - FREE TEXT/NARRATIVE: Patient is brought into the emergency department with a sudden onset of respiratory distress/respiratory failure at the [facility] about an hour after eating lunch. Patient was talking to individuals and with physical therapy and they noticed she was short of breath and unable to speak clear sentences. She was also very diaphoretic at the same time. It was questionable if the pt has had a fever the past couple days, along with a cough, and chills. ([facility]- reported via phone report). She had a stroke about a month ago and has just recently began eating and drinking solid foods again. They contacted 911 and transported patient here. Patient was on room air at the [facility] for saturations in the 50s they placed her on 4 L at the [facility] while waiting for EMS which brought her up to the 70s. EMS placed patient on non-rebreather. Patient was sating in the 90s upon arrival to the emergency department in respiratory rate in the 40s with substernal retractions and abdominal breathing noted. pt remained diaphoretic. and unable to answer questions. Onset: Sudden - Related Data Allergies Allergy/AdvReac Type Severity Reaction Status Date / Time sertraline [From Zoloft] Allergy Cannot Verified 10/18/17 10:36 Remember simvastatin [From Zocor] AdvReac Muscle Verified 10/18/17 10:36 Aches Home Meds: Home Meds RX: Insulin Aspart [NovoLOG] 5 unit SUBCUT BIDAC 06/29/16 [History] RX: Insulin Detemir [Levemir Flextouch] 30 units SUBCUT BEDTIME 06/29/16 [ History] RX: Cholecalciferol (Vitamin D3) [Vitamin D3] 400 units PO DAILY 10/10/17 [ History] RX: Docusate Sodium [Colace] 100 mg PO DAILY PRN 10/10/17 [History] RX: Triamcinolone Acetonide [Triamcinolone Acetonide 0.1% Crm] 1 applic TOP BID PRN 10/10/17 [History] RX: Insulin Aspart [Novolog Flexpen] 7 unit SQ ACLUNCH 10/18/17 [History] RX: Metoprolol Succinate [Toprol XL] 100 mg PO DAILY 10/18/17 [History] RX: Nitroglycerin 0.4 mg SL Q5M PRN 10/18/17 [History] RX: Sennosides/Docusate Sodium [Senna-Docusate Sodium Tablet] 1 tab PO BID PRN 10/18/17 [History] RX: atorvaSTATin [Lipitor] 40 mg PO BEDTIME 10/18/17 [History] RX: Doxazosin [Cardura] 1 mg PO BEDTIME #30 tablet 11/29/17 [Rx] RX: Ferrous Sulfate 325 mg PO DAILY #30 tablet 11/29/17 [Rx] RX: Furosemide [Lasix] 20 mg PO BIDDIURETIC #60 tablet 11/29/17 [Rx] RX: LORazepam [Ativan] 0.5 mg PO BEDTIME PRN tablet 11/29/17 [Rx] RX: Melatonin 6 mg PO BEDTIME tablet 11/29/17 [Rx] RX: Potassium Chloride [Klor-Con 10] 10 meq PO DAILY #30 tab.er 11/29/17 [Rx] RX: traZODone 50 mg PO BEDTIME 11/29/17 [History] [place]/Min Oil/Nella/Wool Alcoh [Eucerin Creme] 1 applic TOP BID 02/01/18 [ History] Ciclopirox Olamine [Ciclopirox] 1 applic TOP BID 02/01/18 [History] RX: Acetaminophen 650 mg PO Q4H PRN MDD 3000mg/day 02/01/18 [History] RX: Bisacodyl 5 mg PO Q12H PRN 02/01/18 [History] RX: Bisacodyl 10 mg RC ASDIRECTED PRN 02/01/18 [History] RX: Menthol/Methyl Salicylate [Icy Hot] 1 applic TOP BID PRN 02/01/18 [History] Sennosides/Docusate Sodium [Senna Plus Tablet] 1 tab PO BID 02/01/18 [History] amLODIPine Besylate [Amlodipine Besylate] 5 mg PO DAILY 02/01/18 [History] Past Medical History HEENT History: Reports: Cataract, Hard of Hearing, Retinal Detachment, Other ( See Below) Other HEENT History: presbyopia. hypermetropia. senile nuclear sclerosis. dry eye Cardiovascular History: Reports: Blood Clots/VTE/DVT, High Cholesterol, Hypertension, GA, PVD, Other (See Below) Other Cardiovascular History: palpitation Respiratory History: Reports: None, Pneumonia, Recurrent Gastrointestinal History: Reports: Hemorrhoids Genitourinary History: Reports: None, Renal Disease, Other (See Below) Other Genitourinary History: perisistent proteinuria SHIP WIRER History: Reports: Prolapsed Uterus Musculoskeletal History: Reports: None Neurological History: Reports: None, CVA Psychiatric History: Reports: Anxiety Endocrine/Metabolic History: Reports: Diabetes, Type II, Other (See Below) Other Endocrine/Metabolic History: lipodystrophy Hematologic History: Reports: Other (See Below) Other Hematologic History: Protein M in blood-inactive at this time; vitamin D deficiency Immunologic History: Reports: None Oncologic (Cancer) History: Reports: Basal Cell Carcinoma Dermatologic History: Reports: Other (See Below) Other Dermatologic History: Intrinsic atopic dermatitis. skin lesion to face - Past Surgical History Head Surgeries/Procedures: Reports: None HEENT Surgical History: Reports: Cataract Surgery Respiratory Surgical History: Reports: None GI Surgical History: Reports: Cholecystectomy Female Surgical History: Reports: Hysterectomy Other Female Surgeries/Procedures: Bladder repair Neurological Surgical History: Reports: None Musculoskeletal Surgical History: Reports: None Social & Family History - Family History Family Medical History: Noncontributory - Tobacco Use Smoking Status *Q: Never Smoker Years of Tobacco use: 20 Packs/Tins Daily: 1 Used Tobacco, but Quit: Yes Month/Year Tobacco Last Used: unknown Second Hand Smoke Exposure: No - Recreational Drug Use Recreational Drug Use: No Drug Use in Last 12 Months: No ED ROS GENERAL - Review of Systems Review Of Systems: See Below Constitutional: Reports: Diaphoresis Respiratory: Reports: Shortness of Breath Cardiovascular: Reports: Chest Pain Endocrine: Reports: No Symptoms GI/Abdominal: Reports: No Symptoms Musculoskeletal: Reports: No Symptoms Skin: Reports: No Symptoms Neurological: Reports: No Symptoms Psychiatric: Reports: No Symptoms ED EXAM, GENERAL - Physical Exam Exam: See Below Exam Limited By: No Limitations General Appearance: Lethargic, Severe Distress Respiratory/Chest: Respiratory Distress, Crackles, Rales, Rhonchi, Accessory Muscle Use, Retractions. No: Wheezing, Splinting Cardiovascular: Normal Peripheral Pulses, Regular Rate, Rhythm GI/Abdominal: Normal Bowel Sounds, No Distention, No Abnormal Bruit Neurological: Slow to Respond Skin Exam: Cool, Cyanosis, Diaphoretic EKG INTERPRETATION Rhythm: Other (bradycardia) Course - Vital Signs Last Recorded V/S: Last Vital Signs Temp 34.8 C L 02/01/18 14:52 Pulse 64 02/01/18 15:36 Resp 19 02/01/18 15:36 BP 125/56 L 02/01/18 15:36 Pulse Ox 98 02/01/18 15:36 - Orders/Labs/Meds Orders: Active Orders 24 hr Category Date Time Status Admission Status [Patient Status] [ADT] Routine ADT 02/01/18 16:23 Ordered CPAP Adult [RT BiPAP/CPAP] [RC] ASDIRECTED Care 02/01/18 15:01 Active EKG 12 Lead [EKG Documentation Completion] [RC] STAT Care 02/01/18 15:17 Active RT Aerosol Therapy [RC] ASDIRECTED Care 02/01/18 15:00 Active Chest 1V Frontal [CR] Stat Exams 02/01/18 14:59 Taken CULTURE BLOOD [BC] Stat Lab 02/01/18 14:50 Received CULTURE BLOOD [BC] Stat Lab 02/01/18 15:30 Results Sodium Chloride 0.9% [Normal Saline] 1,000 ml Med 02/01/18 15:45 Active IV ASDIRECTED Sodium Chloride 0.9% [Saline Flush] Med 02/01/18 14:59 Active 10 ml FLUSH ASDIRECTED PRN Blood Culture x2 Reflex Set [OM.PC] Stat Oth 02/01/18 15:02 Ordered Peripheral IV Insertion Adult [OM.PC] Routine Oth 02/01/18 14:59 Ordered Medication Orders Sodium Chloride (Normal Saline) 1,000 mls @ 50 mls/hr IV ASDIRECTED CRYSTAL Sodium Chloride (Saline Flush) 10 ml FLUSH ASDIRECTED PRN PRN Reason: Keep Vein Open Last Admin: 02/01/18 15:32 Dose: 10 ml Labs: Laboratory Tests 02/01/18 02/01/18 02/01/18 Range/Units 14:50 14:50 14:50 WBC 8.8 (4.0-10.0) x10^3/uL RBC 3.37 L (4.00-5.50) x10^6/uL Hgb 10.7 L D (12.0-16.0) g/dL Hct 33.3 (33.0-47.0) % MCV 98.8 H (78.0-93.0) fL MCH 31.8 (26.0-32.0) pg MCHC 32.1 (32.0-36.0) g/dL RDW Coeff of Mega 14.9 (10.0-15.0) % Plt Count 225 (130-400) x10^3/uL Neut % (Auto) 64.6 (50.0-80.0) % Lymph % (Auto) 28.4 (25.0-50.0) % [place] % (Auto) 5.9 (2.0-11.0) % Eos % (Auto) 0.8 (0.0-4.0) % Baso % (Auto) 0.3 (0.2-1.2) % POC ABG pH (7.35-7.45) POC ABG pCO2 (35-45) mmHG POC ABG pO2 (80-105) mmHG POC ABG HCO3 (22-26) mmol/L POC ABG Total CO2 (23-27) mmol/L POC ABG O2 Sat (95-98) % POC ABG Base Excess (-2-3) mmol/L POC FiO2 Sodium 138 (136-145) mmol/L Potassium 4.4 (3.5-5.1) mmol/L Chloride 100 (98-107) mmol/L Carbon Dioxide 28 (21-32) mmol/L BUN 41 H (7-18) mg/dL Creatinine 1.4 H (0.55-1.02) mg/dL Est Cr Clr Drug Dosing TNP Estimated GFR (MDRD) 36 Glucose 325 H (74-106) mg/dL Lactic Acid (0.4-2.0) mmol/L Calcium 9.5 (8.5-10.1) mg/dL Corrected Calcium 10.22 H (8.5-10.1) mg/dL Total Bilirubin 0.4 (0.2-1.0) mg/dL AST 13 L (15-37) U/L ALT 16 (14-59) U/L Alkaline Phosphatase 79 (46-116) U/L NT-Pro-B Natriuret Pep 5351 H (<=450) pg/mL Total Protein 8.3 H (6.4-8.2) g/dL Albumin 3.1 L (3.4-5.0) g/dL Globulin 5.2 Albumin/Globulin Ratio 0.60 02/01/18 02/01/18 Range/Units 15:24 15:30 WBC (4.0-10.0) x10^3/uL RBC (4.00-5.50) x10^6/uL Hgb (12.0-16.0) g/dL Hct (33.0-47.0) % MCV (78.0-93.0) fL MCH (26.0-32.0) pg MCHC (32.0-36.0) g/dL RDW Coeff of Mega (10.0-15.0) % Plt Count (130-400) x10^3/uL Neut % (Auto) (50.0-80.0) % Lymph % (Auto) (25.0-50.0) % [place] % (Auto) (2.0-11.0) % Eos % (Auto) (0.0-4.0) % Baso % (Auto) (0.2-1.2) % POC ABG pH 7.369 (7.35-7.45) POC ABG pCO2 44 (35-45) mmHG POC ABG pO2 93 (80-105) mmHG POC ABG HCO3 26 (22-26) mmol/L POC ABG Total CO2 27 (23-27) mmol/L POC ABG O2 Sat 97 (95-98) % POC ABG Base Excess 0 (-2-3) mmol/L POC FiO2 0.44 Sodium (136-145) mmol/L Potassium (3.5-5.1) mmol/L Chloride (98-107) mmol/L Carbon Dioxide (21-32) mmol/L BUN (7-18) mg/dL Creatinine (0.55-1.02) mg/dL Est Cr Clr Drug Dosing Estimated GFR (MDRD) Glucose (74-106) mg/dL Lactic Acid 2.8 H* (0.4-2.0) mmol/L Calcium (8.5-10.1) mg/dL Corrected Calcium (8.5-10.1) mg/dL Total Bilirubin (0.2-1.0) mg/dL AST (15-37) U/L ALT (14-59) U/L Alkaline Phosphatase (46-116) U/L NT-Pro-B Natriuret Pep (<=450) pg/mL Total Protein (6.4-8.2) g/dL Albumin (3.4-5.0) g/dL Globulin Albumin/Globulin Ratio Meds: Medications Generic Name Dose Route Start Last Admin Trade Name Freq PRN Reason Stop Dose Admin Sodium Chloride 1,000 mls @ 50 mls/hr 02/01/18 15:45 Normal Saline IV ASDIRECTED CRYSTAL Sodium Chloride 10 ml 02/01/18 14:59 02/01/18 15:32 Saline Flush FLUSH 10 ml ASDIRECTED PRN Administration Keep Vein Open Discontinued Medications Generic Name Dose Route Start Last Admin Trade Name Freq PRN Reason Stop Dose Admin Albuterol/Ipratropium 3 ml 02/01/18 14:59 02/01/18 14:49 Duoneb 3.0-0.5 Mg/3 Ml NEB 02/01/18 15:00 3 ml ONETIME ONE Administration Ceftriaxone Sodium 1 gm 02/01/18 15:10 Rocephin IVPUSH 02/01/18 15:11 ONETIME ONE Furosemide 20 mg 02/01/18 15:24 02/01/18 15:32 Lasix IV 02/01/18 15:25 20 mg ONETIME ONE Administration Vancomycin HCl 1,250 mg/ 250 mls @ 200 mls/hr 02/01/18 15:10 Sodium Chloride IV 02/01/18 16:24 ONETIME ONE Piperacillin Sod/Tazobactam 100 mls @ 200 mls/hr 02/01/18 15:13 Sod 3.375 gm/ Sodium Chloride IV 02/01/18 15:42 ONETIME ONE - Re-Assessments/Exams Free Text/Narrative Re-Assessment/Exam: 02/01/18 16:16 Pt is tolerating CPAP. Talking and responding appropriately and talking with family. Pt agreeable to admit and further monitoring and medication management. Departure - Departure Time of Disposition: 16:25 Disposition: Admitted As Inpatient 66 Clinical Impression: Pulmonary edema Qualifiers: Chronicity: acute Qualified Code(s): J81.0 - Acute pulmonary edema Respiratory failure Qualifiers: Chronicity: acute Respiratory failure complication: hypoxia and hypercapnia Qualified Code(s): J96.01 - Acute respiratory failure with hypoxia - Discharge Information Referrals: Cyndy Tate MD [Primary Care Provider] - - Problem List Review Problem List Initiated/Reviewed/Updated: Yes - My Orders Last 24 Hours: My Active Orders 02/01/18 14:50 CULTURE BLOOD [BC] Stat 02/01/18 14:59 Chest 1V Frontal [CR] Stat Sodium Chloride 0.9% [Saline Flush] 10 ml FLUSH ASDIRECTED PRN Peripheral IV Insertion Adult [OM.PC] Routine 02/01/18 15:00 RT Aerosol Therapy [RC] ASDIRECTED 02/01/18 15:01 CPAP Adult [RT BiPAP/CPAP] [RC] ASDIRECTED 02/01/18 15:02 Blood Culture x2 Reflex Set [OM.PC] Stat 02/01/18 15:17 EKG 12 Lead [EKG Documentation Completion] [RC] STAT 02/01/18 15:30 CULTURE BLOOD [BC] Stat 02/01/18 15:45 Sodium Chloride 0.9% [Normal Saline] 1,000 ml IV ASDIRECTED 02/01/18 16:23 Admission Status [Patient Status] [ADT] Routine - Assessment/Plan Last 24 Hours: My Active Orders 02/01/18 14:50 CULTURE BLOOD [BC] Stat 02/01/18 14:59 Chest 1V Frontal [CR] Stat Sodium Chloride 0.9% [Saline Flush] 10 ml FLUSH ASDIRECTED PRN Peripheral IV Insertion Adult [OM.PC] Routine 02/01/18 15:00 RT Aerosol Therapy [RC] ASDIRECTED 02/01/18 15:01 CPAP Adult [RT BiPAP/CPAP] [RC] ASDIRECTED 02/01/18 15:02 Blood Culture x2 Reflex Set [OM.PC] Stat 02/01/18 15:17 EKG 12 Lead [EKG Documentation Completion] [RC] STAT 02/01/18 15:30 CULTURE BLOOD [BC] Stat 02/01/18 15:45 Sodium Chloride 0.9% [Normal Saline] 1,000 ml IV ASDIRECTED 02/01/18 16:23 Admission Status [Patient Status] [ADT] Routine Plan: 1. Patient is code level is a DNR- Do not intubate and do not perform CPR. Did discuss with family emergent necessity of the patient's respiratory failure. Patients family is agreeing to try CPAP. CPAP was ordered and initiated immediately. 2. DuoNeb and 15L NRB was provided upon arrival to the emergency department while waiting for CPAP 3. Labs were drawn in the emergency department and results reviewed with the family and the patient 4. Sepsis protocol was initiated at the start of the visit for it was reported that the patient had possible aspiration pneumonia and possible high temperature at the [facility] along with her respiratory distress/failure. However upon further investigation patient has no fever heart rate is stable in the 60s blood pressures are in the 150s held off on antibiotic until further lab results are finalized. 5. ABGs ordered in the emergency department due to respiratory failure. PH 7.369 , PCO2-44.2, PO2 93, HCO3 25.5 6. Chest x-ray ordered results reviewed with patient and the family 7. Lasix 20 mg IV ordered related to pulmonary congestion and chest x-ray showing significant pulmonary edema 8. IV insertion was initiated upon arrival with maintenance IV solution running 9. Contact made with Ashtyn Morin who is willing to assume care and admit to hospital under acute care services
[2018-02-01] MEDS ORDERED: Furosemide 20 MG/2 ML VIAL IV ONE (15:24)
[2018-02-01] MEDS: Sodium Chloride 0.9% 10 ML Syringe FLUSH PRN (15:32)
[2018-02-01] MEDS ORDERED: Sodium Chloride 0.9% 1,000 ML IV SCH (15:45)
[2018-02-01 15:58] LABS: CHLORIDE,CL 100 mmol/L (98-107); SODIUM,NA 138 mmol/L (136-145)
[2018-02-01] MEDS ORDERED: Docusate Sodium 100 MG Cap PO PRN (17:12)
[2018-02-01] MEDS ORDERED: Nitroglycerin 0.4 MG Tab.SL SL PRN (17:12)
[2018-02-01] MEDS ORDERED: Bisacodyl 10 MG Supp RECTAL PRN (17:12)
[2018-02-01] MEDS ORDERED: Menthol/Methyl Salicylate 85 GM Tube TOP PRN (17:12)
[2018-02-01] MEDS ORDERED: Bisacodyl 5 MG Tab PO PRN (17:12)
[2018-02-01] MEDS ORDERED: Triamcinolone Acetonide 0.1% Crm 15 GM Tube TOP PRN (17:12)
[2018-02-01] MEDS ORDERED: CICLOPIROX OLAMINE TOP SCH (20:00)
[2018-02-01] MEDS ORDERED: Magnesium Sulfate/Water 2 GM in Premix Bag 1 BAG IV ONE (20:58)
[2018-02-01] MEDS: LORazepam 0.5 MG Tab PO PRN (21:27)
[2018-02-01] MEDS: Melatonin 3 MG Tab PO SCH ×2 (21:27→21:42)
[2018-02-01] MEDS: Insulin Detemir 100 Units/ML 3 ML Pen SUBCUT SCH (21:28)
[2018-02-01] MEDS: atorvaSTATin 40 MG Tab PO SCH ×2 (21:28→21:42)
[2018-02-01] MEDS: traZODone 50 MG Tab PO SCH ×2 (21:30→21:42)
[2018-02-02] MEDS: Insulin Aspart 100 Units/ML 3 ML Pen SUBCUT SCH ×4 (06:07→17:34)
[2018-02-02] MEDS: Sodium Chloride 0.9% 10 ML Syringe FLUSH PRN (07:48)
[2018-02-02] MEDS: Furosemide 20 MG/2 ML VIAL IV SCH (07:48)
[2018-02-02] MEDS: Enoxaparin 30 MG/0.3 ML Syringe SUBCUT SCH (07:56)
[2018-02-02] MEDS: Acetaminophen 325 MG Tab PO PRN ×2 (07:57→14:40)
[2018-02-02] MEDS: Metoprolol Succinate 50 MG Tab.ER PO SCH (07:59)
[2018-02-02] MEDS: amLODIPine 5 MG Tab PO SCH (08:00)
[2018-02-02] MEDS ORDERED: Enoxaparin 40 MG/0.4 ML Syringe SUBCUT SCH (08:00)
[2018-02-02] MEDS ORDERED: Metoprolol Tartrate 50 MG Tab PO SCH (08:00)
--- NOTE | 2018-02-02 09:54 | PN ---
Progress Note for MYRIAM Heard AUS Date: 02/02/2018 Room #: VM.218 SUBJECTIVE: This is hospital day #2 for an 82-year-old admitted with acute hypoxic respiratory failure secondary to pulmonary edema. This came on suddenly. She received BiPAP. She was off shortly last evening to eat supper, but then on overnight, taken off this morning around 7:00 a.m. She is doing well, maintaining her saturations now on 4 L. She is lying flat. She states her breathing is better. She only had a minimal cough. She has had no fever, no chills. The only pain is in her leg, which is related to her previous stroke. Otherwise, she does have chronic kidney disease, but her creatinine actually improved from 1.4 to 1.3 today. She has been unable to tolerate JAM inhibitors in the past due to worsening kidney function. OBJECTIVE: Vital Signs: Her temperature is 98.3, pulse 58, blood pressure 147/64, respiratory rate 16, and O2 of 98% on 3 L. General: She is in no acute distress. Heart: Regular rate and rhythm. Respiratory: Lung sounds are clear to auscultation bilaterally without crackles or wheezes. Abdomen: Positive bowel sounds. Soft, nontender. Extremities: Warm and dry. No edema. Mental Status: She is alert and orientated x3. Skin: Does show a coccyx ulcer present on admission. It is very superficial, almost looks like a skin shear. There is some minimal surrounding redness, but no warmth, no drainage. The patient states she has had that ever since her stroke. Daughter states it did heal up, but had returned in the [facility]. LABORATORY DATA: Lab work today does show her white count normal at 8.2, hemoglobin 9.5, platelets 200. Hemoglobin 2 days ago in the clinic was 8.9. Sodium 140, potassium 3.9, chloride 103, bicarb 29, BUN 40, creatinine 1.3, glucose 127. Magnesium through the clinic the day before was 1.5, so she did receive 2 g of IV magnesium yesterday. Troponin went up to 0.193. ASSESSMENT: 1. Acute hypoxic respiratory failure secondary to flash pulmonary edema. At this point, I am going to continue her on Lasix 20 mg IV daily, may increase to b.i.d. if blood pressure remains elevated, but she is currently diuresing well, 1.1 L, and she is feeling better. 2. Sinus bradycardia. She is on metoprolol. Lowest rates were 44. She is asymptomatic. She is nonambulatory. We will continue with the same and discontinue telemetry. 3. Chronic kidney disease. The patient's creatinine is near her baseline. It was just 1.19 or 1.2 recently in the clinic. We will do a UA today and continue to monitor renal function during her stay. 4. Hypomagnesemia. I am going to start her on some oral magnesium. I will repeat it tomorrow. 5. 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 We will work on positioning and Optifoam is in place. 6. Diabetes. Blood sugars are controlled. We will continue her same insulin. 7. Essential hypertension. Blood pressure is slightly elevated, 147 today. We will continue to monitor. 8. Chronic anemia. PLAN: At this point, the patient will continue acute cares with IV Lasix. We will discontinue telemetry and continuous pulse oximetry. She likely will not need any further BiPAP. We will continue to see how she does throughout the day. We will continue local wound cares. We will repeat lab work tomorrow. We did discuss further workup for her cardiac and possibly renal artery stenosis after discharge. She had already been set up for a cardiac PET scan, but this per her and her family was waiting till the weather was better. For DVT prophylaxis, she is on Lovenox. MKA: 02/02/2018 09:08:42 MODL: 02/02/2018 09:48:30 /[id number]
[2018-02-02] MEDS: Ferrous Sulfate 325 MG Tab PO SCH (11:35)
[2018-02-02] MEDS: Magnesium Oxide 400 MG Tab PO SCH (11:35)
[2018-02-02] MEDS: Potassium Chloride 10 MEQ Tab.ER PO SCH (11:35)
[2018-02-02] MEDS: Cholecalciferol (Vitamin D3) 400 Unit Tab PO SCH (11:35)
[2018-02-02] MEDS: Insulin Detemir 100 Units/ML 3 ML Pen SUBCUT SCH (20:17)
[2018-02-02] MEDS: atorvaSTATin 40 MG Tab PO SCH (20:19)
[2018-02-02] MEDS: LORazepam 0.5 MG Tab PO PRN (20:19)
[2018-02-02] MEDS: traZODone 50 MG Tab PO SCH (20:20)
[2018-02-02] MEDS: Melatonin 3 MG Tab PO SCH (20:20)
[2018-02-03] MEDS: Acetaminophen 325 MG Tab PO PRN ×2 (00:55→06:10)
[2018-02-03] MEDS: Insulin Aspart 100 Units/ML 3 ML Pen SUBCUT SCH ×3 (06:02→17:29)
[2018-02-03] MEDS: Potassium Chloride 10 MEQ Tab.ER PO SCH (08:07)
[2018-02-03] MEDS: Ferrous Sulfate 325 MG Tab PO SCH (08:07)
[2018-02-03] MEDS: Cholecalciferol (Vitamin D3) 400 Unit Tab PO SCH (08:08)
[2018-02-03] MEDS: amLODIPine 5 MG Tab PO SCH (08:09)
[2018-02-03] MEDS: Magnesium Oxide 400 MG Tab PO SCH (08:09)
[2018-02-03] MEDS: Enoxaparin 30 MG/0.3 ML Syringe SUBCUT SCH (08:10)
[2018-02-03] MEDS: Furosemide 20 MG/2 ML VIAL IV SCH (08:10)
[2018-02-03] MEDS: Sodium Chloride 0.9% 10 ML Syringe FLUSH PRN (08:12)
[2018-02-03] MEDS: Metoprolol Succinate 50 MG Tab.ER PO SCH (08:15)
--- NOTE | 2018-02-03 12:17 | PN ---
Progress Note for MYRIAM Heard AUS Date: 02/03/2018 Room #: VM.218 SUBJECTIVE: This is hospital day #3 on an 82-year-old admitted with acute hypoxic respiratory failure secondary to flash pulmonary edema. Working diagnosis is a possibility of renal artery stenosis versus an SC. She has not had any chest pain, and her troponins are trending down. She has been on low IV fluids 25 mL/hour due to renal insufficiency, but she has been eating 100% of her meal last evening and had good oral intake. Yesterday, she was even for fluid balance, but is down 1.1 L. The only thing that bothers her is her buttock. She has a coccyx ulcer, which we examined yesterday. This has been longstanding problem that recently reoccurred. Her weight overall is about the same as admission, but her breathing really improved drastically by just placing her on the BiPAP. She has been on IV Lasix. She did have a Greenfield catheter inserted due to need for strict In's and Out's monitoring. OBJECTIVE: Vital Signs: Her temperature this morning is 97.7, her weight is 74.3 kg, pulse 58, blood pressure 150/60, respiratory rate 16, and O2 93% on room air. General: She is in no acute distress. Heart: Regular rate and rhythm. Respiratory: Lungs sounds are clear to auscultation bilaterally without crackles or wheezes. Abdomen: Has positive bowel sounds. It is soft. It is nontender. Extremities: Warm and dry. No edema. Mental Status: She is alert. She is orientated x3. LABORATORY DATA: Lab work today does show her to have a creatinine up to 1.4 from 1.3. Sodium 139, potassium 4.1, chloride 103, bicarb 29, BUN 44, and glucose 108. High glucose was 271 last evening, otherwise, they have been acceptable. White count 7.1, hemoglobin 8.9, and platelets 192. Her UA with the catheter did show 20 to 30 wbc's and a few wbc clumps, but she is having no symptoms, therefore, culture is pending. Troponin down to 0.082 from a T-max of 0.193. ASSESSMENT: 1. Acute hypoxic respiratory failure secondary to flash pulmonary edema. At this point, she has received IV Lasix this morning. I am going to place her on 40 mg p.o. b.i.d. She was on 20 mg b.i.d. previously. We will remove the Greenfield and see how she does. Repeat lab work tomorrow. 2. Chronic kidney disease, stage 3. Recent creatinine around 1.2 in the clinic. She is up to 1.4 today. We will repeat tomorrow. We will also stop IV fluids. She is taking good oral intake. 3. Sinus bradycardia, chronic. She is on metoprolol. Would decrease that if she had any symptoms of bradycardia, but currently she does not. 4. Hypomagnesemia. This has been replaced. Magnesium is 2.1 today. 5. History of stroke with hemiparesis and coccyx ulcer. She is on current wound cares. The ulcer was present on admission. 6. Diabetes. Blood sugars are under good control. 7. Essential hypertension. Blood pressure is still slightly elevated at 150/60, earlier was 138/57. Hopefully, the increased Lasix oral doses will help. 8. Chronic anemia. 8.9 is what her hemoglobin was earlier in this week before admission. We will repeat it tomorrow. 9. She is on Lovenox for DVT prophylaxis. PLAN: At this point, the patient will continue acute cares. She has not required BiPAP now in 24 hours. We will repeat lab work tomorrow. We will have her on oral Lasix 40 mg twice daily. We will remove her Greenfield. She will likely need some outpatient workup including a cardiac PET, which has been previously scheduled and was waiting until the weather was better and maybe some renal artery Doppler ultrasounds. Dr. Tate to assume care in the morning. CHANELLA: 02/03/2018 09:28:08 MODL: 02/03/2018 11:23:42 /[id number]
[2018-02-03] MEDS: Sulfamethoxazole/Trimethoprim 400-80 MG Tab PO SCH ×2 (12:57→20:17)
[2018-02-03] MEDS ORDERED: Furosemide 20 MG/2 ML VIAL IV SCH (14:00)
[2018-02-03] MEDS: Furosemide 40 MG Tab PO SCH (15:48)
[2018-02-03] MEDS: atorvaSTATin 40 MG Tab PO SCH (20:17)
[2018-02-03] MEDS: Melatonin 3 MG Tab PO SCH (20:17)
[2018-02-03] MEDS: traZODone 50 MG Tab PO SCH (20:17)
[2018-02-03] MEDS: Insulin Detemir 100 Units/ML 3 ML Pen SUBCUT SCH (20:20)
[2018-02-04] MEDS: Acetaminophen 325 MG Tab PO PRN ×2 (04:53→07:58)
[2018-02-04 06:21] VITALS: BP 150/53
[2018-02-04] MEDS: Insulin Aspart 100 Units/ML 3 ML Pen SUBCUT SCH (06:44)
[2018-02-04] MEDS: Ferrous Sulfate 325 MG Tab PO SCH (07:57)
[2018-02-04] MEDS: Furosemide 40 MG Tab PO SCH (07:57)
[2018-02-04] MEDS: Sulfamethoxazole/Trimethoprim 400-80 MG Tab PO SCH (07:57)
[2018-02-04] MEDS: amLODIPine 5 MG Tab PO SCH (07:57)
[2018-02-04] MEDS: Magnesium Oxide 400 MG Tab PO SCH (07:57)
[2018-02-04] MEDS: Metoprolol Succinate 50 MG Tab.ER PO SCH (07:57)
[2018-02-04] MEDS: Potassium Chloride 10 MEQ Tab.ER PO SCH (07:57)
[2018-02-04] MEDS: Cholecalciferol (Vitamin D3) 400 Unit Tab PO SCH (07:57)
[2018-02-04] MEDS: Enoxaparin 30 MG/0.3 ML Syringe SUBCUT SCH (07:58)
--- NOTE | 2018-02-04 08:54 | HP ---
CHIEF COMPLAINT: Respiratory failure. HISTORY OF PRESENT ILLNESS: This is an 82-year-old female with a known history of CHF, EF 45% back in September, who is working with PT, felt okay after lunch, then started to suddenly be short of breath. She started coughing right before that. Her oxygen saturations were low into the 50s. She was placed on 4 L of oxygen and her O2 improved up to 74% on the 4 L. It was a sudden onset. She denied any chest pain. She has not had any fever or chills. There was some report that maybe she has been coughing a little with eating. She was treated for a similar episode for aspiration pneumonia in the past. Her family also states it happened once in [place] after she came back after her stroke, but they were able to get things turned around. In the emergency room, she got 20 mg of IV Lasix. She got placed on a CPAP and was saturating nearly 100%. She was looking much better, feeling better. She was sweaty when she came in and that is all resolved. She has been urinating. She is able to talk in sentences and answer questions. Her children told me that she did have some kidney failure in the past when they were using medications maybe for this, but she is currently on Lasix 20 mg twice daily at the [facility]. Her blood pressure also did spike up to 190 systolic, which may have contributed somewhat to her edema. Chest x-ray was showing increased edema. ALLERGIES: Her allergies include lisinopril, had a kidney injury with that per Dr. Tate's documentation. Zocor, myalgias. Zoloft, palpitations. MEDICATIONS: Her current medication list as reviewed from [facility] does show her to have Tylenol as needed, Norvasc 5 mg daily, Dulcolax suppositories and laxatives p.r.n., Cardura 1 mg daily, ciclopirox olamine 0.77% twice daily for dermatitis until 02/13, Colace 100 mg twice daily p.r.n., Eucerin cream, iron 325 one tablet daily, furosemide 20 mg twice daily, Levemir 28 units daily, Lipitor 40 mg daily, Lorazepam 0.5 mg at bedtime as needed for sleep, melatonin 6 mg at bedtime, cream, metoprolol 100 mg daily, nitroglycerin 0.4 mg every 5 minutes as needed for chest pain. NovoLog 7 units at lunch, 5 units with breakfast and supper. Potassium 10 mEq daily, senna S one b.i.d. p.r.n. for constipation and 1 twice daily, trazodone 50 mg one time a day for sleep, vitamin D 400 units daily, triamcinolone cream. 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 She did not have a followup PET scan that had been recommended in December by Cardiology. Acute kidney injury, possibly due to the JAM inhibitors, creatinine was 1.1 on outpatient lab work yesterday, MGUS, mixed hyperlipidemia, situational anxiety, type 2 diabetes without complications on long-term insulin, cataracts, chronic kidney disease again stage 3. HCTZ was also stopped in the past. At one point, she was also getting Brilinta, dysphagia after CVA with possible history of aspirations. Currently, no clinical evidence for an infectious cause of respiratory failure, as it was an acute onset. PAST SURGICAL HISTORY: As outlined below includes vaginal hysterectomy, cholecystectomy, bladder repair, cataract extractions. SOCIAL HISTORY: The patient is . 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 Four children are present for her admission today. FAMILY HISTORY: Father and mother both . Her father had an [place]. Sister with uterine cancer, otherwise. REVIEW OF SYSTEMS: General: The patient is unaware of any recent weight changes. She is actually down though by computer records about 19 pounds since October. HEENT: No sore throat. Cardiac: No chest pain. She has not noted any palpitations. She has not noted any orthopnea preceding this. No leg swelling. Respiratory: No wheezing, just some cough that just started. Abdominal: No nausea, vomiting, abdominal pain, diarrhea, or constipation. : No dysuria. She is able to sense to go to the bathroom. GI: No constipation. Skin: She does have a wound to her coccyx that was present on admission. Neurologic and psychologic: She does not appear overly depressed or anxious. She is able answer questions appropriately. PHYSICAL EXAMINATION: Vital signs: When I saw her, she was saturating 97% on 4 L. She was taken off BiPAP for transfer. Her weight was 74.48 kg. Her temperature was actually listed to be low at 94.7; her pulse 76; her blood pressure 125/56, initially was 189/91; respiratory rate 19. General: She was in no acute distress. Heart: Regular rate and rhythm with distant tones, but no murmurs appreciated. Lungs: Sounds were decreased especially over the right side, but no crackles appreciated. Left lung was clear. Abdomen: Nondistended, nontender. Extremities: Warm and dry. No edema. Mental status: Again, she is alert, she is orientated x3. She is able to answer questions appropriately. DIAGNOSTIC DATA: Chest x-ray reviewed did show significant pulmonary edema. EKG showed a sinus rhythm with PVCs, she had some nonspecific especially lateral ST changes which were slightly worse when compared to her EKG last fall from [place]. She also had some ST depression noted in V3. LABORATORY DATA: Lab work did show white count 8.8, hemoglobin 10.7, platelets 225. ABG, pH 7.36, pCO2 of 44, PO2 of 93. Sodium 138, potassium 4.4, chloride 100, bicarb 28, BUN 41, creatinine 1.4, glucose 325, lactic acid 2.8, calcium 9.5, bilirubin 0.4, AST 13, ALT 16, alkaline phosphatase 79, proBNP 5351, and albumin 3.1. ASSESSMENT AND PLAN: 1. Acute hypoxic respiratory failure secondary to pulmonary edema. This is most likely related to her hypertensive urgency, underlying renal artery stenosis is also a possibility. She has known heart failure as well. At this point, she is doing well. We were able to take her off BiPAP, but we will place her back on there as needed and support her breathing as we diurese her. 2. 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 We will place her on IV Lasix 20 mg IV daily. She already got 20 mg in the ER. We will continue to monitor. 3. Ulcer to her coccyx present on admission, 3.2 cm open area, 10 x 10 area of minimal redness, we will do local wound cares. We discussed putting a [place] in place to keep this area dry and to promote healing, especially during diuresis over the next 24 to 48 hours, the patient is agreeable. 4. Essential hypertension with accelerated blood pressures. We will continue amlodipine, Cardura, metoprolol, and IV Lasix. Blood pressures have already come down nicely. 5. History of stroke with left hemiparesis. We will continue her current medications. 6. Diabetes type 2 with hyperglycemia probably due to stress. We will do q.i.d. Accu-Cheks. We will continue her home insulin. 7. Lactic acidosis, presumably due to respiratory failure. We will repeat a lactic acid level at 6 p.m. we will also get a CRP and a troponin. We did not order any antibiotics as currently I feel her condition was respiratory failure. Certainly, if she develops any worsening lactic acid levels or symptoms of sepsis, we will initiate antibiotics. 8. Chronic kidney disease stage 3. Creatinine recently 1.19 up to 1.4 today, this will likely be improved by , we will repeat it in the morning. She will be on low-dose fluids 25 mL/h. 9. DVT prophylaxis. I will place her on Lovenox. She is a code level 3. The patient does not wish to be transferred to [place] for further cares. The plan of care was discussed with the patient and her family. MRSA screen has already been done. She will be in isolation until then. Blood cultures were also done. Continue to monitor the patient's condition clinically. Anticipate she will need at least a 2 midnight stay before returning back to the Care Center. BiPAP settings will be 40% FiO2 and we will start with 08/16. MKA: 02/01/2018 17:58:38 MODL: 02/02/2018 00:49:30 /[id number]
--- NOTE | 2018-02-04 09:37 | PN ---
Progress Note for MYRIAM Heard AUS Date: 02/04/2018 Room #: .218 SUBJECTIVE: She is feeling much better today. She is not short of breath. She is eager for return to the care home. She denies any chest pain. OBJECTIVE: Vital Signs: Her temperature is 36.2, pulse is 60, blood pressure is 150/35, and sats are 94% on room air. Heart: Regular rate and rhythm. Lungs: Clear to auscultation. Neurologic: She is mildly dysarthric, but at her baseline. Extremities: She is hemiparetic on her left upper and left lower extremities. LABORATORY DATA: Her lab today shows her hemoglobin was stable at 8.8 and white blood cell count 7.6. Sodium was 138, potassium 3.9, creatinine 1.5, GFR 33, and glucose 133. The patient was felt to be stable to be discharged back to the care home. IMPRESSION: 1. Flash pulmonary edema, which has now resolved. 2. Coronary artery disease. 3. Chronic kidney disease. 4. Type 2 diabetes mellitus. 5. Cerebrovascular disease with significant left hemiparesis. 6. Mild dysphagia. 7. Sinus bradycardia. 8. Hypomagnesemia, which has been replaced. 9. Anemia of chronic disease. 10.She has UTI that is both Proteus mirabilis as well as E. coli. PLAN: The patient will be allowed to go back to [facility]. To note, she will be resumed on her oral Lasix 40 mg twice a day. I will continue her on her sulfa antibiotics. The patient will need to have a PET scan scheduled through Cardiology once the weather gets better. She is followed by Nephrology for her chronic kidney disease. GM02/04/2018 08:44:28 MODL: 02/04/2018 09:29:25 /[id number]
--- NOTE | 2018-02-05 07:15 | DISCH ---
PRIMARY DIAGNOSES: 1. Flash pulmonary edema. 2. Elevated troponin felt due to pulmonary edema. 3. Hypomagnesemia. 4. Cerebrovascular disease. 5. Dysarthria. 6. Type 2 diabetes mellitus. 7. Chronic kidney disease. 8. Urinary tract infection with Proteus mirabilis and E. coli. 9. Hypomagnesemia. 10.Type 2 diabetes mellitus. 11.Sinus bradycardia. 12.Sacral ulcer. SUMMARY: She came in on 02/01/2018. She presented with shortness of breath at the half-way, which was sudden. She was placed on BiPAP, given extra oxygen. The patient normally does have oxygen at night. She was having substernal retractions. Chest x-ray showed minimal edema. She did not have pneumonia present. Her lab on admission showed a white blood count of 8.8, hemoglobin 10.7. Sodium was 138, potassium 4.4, creatinine 1.4, BUN 41, GFR 36, glucose 325, calcium 9.5, AST 13, ALT 16. ProBNP was 5351, albumin 3.1. ABG shows pH 7.36, pCO2 of 44, PO2 of 93, bicarb 26, sats are 97% on 0.44 FiO2. Her lactic acid was 2.8. The patient was placed on Rocephin. She was given some IV Lasix, placed on vancomycin as well as piperacillin for coverage in case she was septic. She was given a DuoNeb. To note, she had gotten much better after being given IV Lasix. Her chest x-ray just showed some pleural effusions. It was repeated the next day and report is not currently available to me. Her laboratory data was followed. Her hemoglobin did drop down to her baseline at 8.8. White blood cell count was 7.6. Troponin was checked on 02/03, was slightly elevated at 0.082, but she had no acute ST changes, and she does have known coronary artery disease when she had her CVA. On 02/04, her hemoglobin stayed at 8.8. Her sodium was 138, potassium 3.9, creatinine 1.5, GFR was 33, glucose was 133. Her magnesium was noted to be 2.1, on recheck it was 1.5 noted at the clinic prior to admission, so that is why she was given IV magnesium supplement and then placed on oral magnesium supplementation. The patient's pulse was monitored, and it was noted to be down to 51. DISCHARGE MEDICATIONS: 1. Acetaminophen 325 two pills every 4 hours as needed. 2. Amlodipine 5 mg 1 pill daily. 3. Atorvastatin 40 mg 1 pill at bedtime. 4. Bisacodyl 5 mg every 12 hours p.r.n. constipation. 5. Bisacodyl 10 mg suppository daily p.r.n. constipation. 6. Vitamin D 400 units 1 pill daily. 7. Ciclopirox cream 1 application twice a day as needed for yeast in skin up to 2 weeks at a time. 8. Docusate 100 mg 1 pill daily. 9. Doxazosin 1 mg 1 pill at bedtime. 10.Ferrous sulfate 325 1 pill daily. 11.Furosemide 40 mg 1 pill twice a day. 12.NovoLog 5 units b.i.d. at breakfast and supper, and 7 units at lunch time. 13.Levemir 28 units subcu at bedtime. 14.Lorazepam 0.5 mg 1 pill at bedtime as needed for anxiety. 15.Magnesium 400 mg 1 pill daily. 16.Melatonin 3 mg 2 pills at bedtime. 17.Icy Hot topical b.i.d. p.r.n. 18.Metoprolol 100 mg extended release 1 pill daily. 19.Nitroglycerin 0.4 sublingual q.5 minutes x3 p.r.n. 20.Potassium 10 mEq 1 pill daily. 21.Senna/docusate scheduled 1 pill twice a day as needed. 22.Sulfamethoxazole/trimethoprim single-strength 1 pill twice a day for 5 days. 23.Trazodone 50 mg at bedtime. 24.Triamcinolone 1 applicator twice a day p.r.n. itchy skin. 25.Eucerin cream 1 applicator twice a day. 26.Dressing to her coccygeal ulcer daily as needed. DIET: Will be per her oral routine for dysphagia prevention. The patient will need to have lab work done in a week's time with basic metabolic profile, CBC, and magnesium level for chronic kidney disease as well as hypomagnesemia. The patient also needs to be set up for PET scan per Cardiology that she is already been in touch with because of known coronary artery disease. The patient's code level status is do not resuscitate, do not intubate. We will have the patient have her blood sugars checked 4 times a day for 3 days, and then they will notify me of the results. She will be on Bactrim single strength 1 pill twice a day for 5 days for her UTI. To note, she does need to try to void every 4 hours to prevent UTIs from happening. GM02/04/2018 09:00:47 MODL: 02/05/2018 04:07:58 /[id number]
== END 2018-02-04 10:05 | DRG 189 ==
LOC: VM.ED 14:48 → VM.MS 16:23
PROVIDERS: ADMIT Internal Medicine; ATTEND Family Medicine
DX: J96.01 Acute respiratory failure with hypoxia (principal); J81.0 Acute pulmonary edema; I50.43 Acute on chronic combined systolic (congestive) and diastolic (congestive) heart failure; N39.0 Urinary tract infection, site not specified; I69.354 Hemiplegia and hemiparesis following cerebral infarction affecting left non-dominant side; E87.2 Acidosis; E11.9 Type 2 diabetes mellitus without complications; R74.9 Abnormal serum enzyme level, unspecified; E83.42 Hypomagnesemia; I67.9 Cerebrovascular disease, unspecified; R47.1 Dysarthria and anarthria; I12.9 Hypertensive chronic kidney disease with stage 1 through stage 4 chronic kidney disease, or unspecified chronic kidney disease; E11.22 Type 2 diabetes mellitus with diabetic chronic kidney disease; N18.9 Chronic kidney disease, unspecified; B96.20 Unspecified Escherichia coli [E. coli] as the cause of diseases classified elsewhere; B96.4 Proteus (mirabilis) (morganii) as the cause of diseases classified elsewhere; R00.1 Bradycardia, unspecified; L98.419 Non-pressure chronic ulcer of buttock with unspecified severity; E78.00 Pure hypercholesterolemia, unspecified; I10 Essential (primary) hypertension; I25.2 Old myocardial infarction; F41.9 Anxiety disorder, unspecified; E11.65 Type 2 diabetes mellitus with hyperglycemia; E88.1 Lipodystrophy, not elsewhere classified; E55.9 Vitamin D deficiency, unspecified; Z85.828 Personal history of other malignant neoplasm of skin; Z88.8 Allergy status to other drugs, medicaments and biological substances; Z79.899 Other long term (current) drug therapy; Z79.4 Long term (current) use of insulin; Z86.718 Personal history of other venous thrombosis and embolism; Z66 Do not resuscitate; Z79.01 Long term (current) use of anticoagulants
CPT/HCPCS: 36415; 36600; 71045; 80053; 82803; 83605; 83880; 85025; 87040 ×2; 93005; 94660; 96374; 99285 ×2; J1940; J7050; 51702; 80048; 81001; 82962; 83735; 84484; 86140; 87086; 87088; 87186; 94760; A9270-GY; J1650; J1815-GY; J3475; J7030

== ENCOUNTER 2019-01-27 07:48 | Emergency (ER) | payer MEDICARE, BC, MEDICAID ==
[2019-01-27] MEDS ORDERED: Furosemide 40 MG/4 ML VIAL IV ONE (07:52)
[2019-01-27] MEDS ORDERED: Sodium Chloride 0.9% 10 ML Syringe FLUSH PRN (07:52)
--- NOTE | 2019-01-27 08:32 | EDM.PDOC ---
ED HPI GENERAL MEDICAL PROBLEM - General Chief Complaint: Respiratory Problem Stated Complaint: SOB Time Seen by Provider: 01/27/19 07:49 Source of Information: Reports: EMS Notes Reviewed, Family, Skilled Nursing Records , RN, RN Notes Reviewed History Limitations: Reports: No Limitations - History of Present Illness INITIAL COMMENTS - FREE TEXT/NARRATIVE: He is brought to the emergency room at [facility] via EMS for hypoxia, shortness of breath, and gurgling respirations. According to custodial records the patient developed the symptoms this morning. The patient does have a long-standing history of congestive heart failure. The patient was given IV Lasix in route, however the IV had infiltrated for the EMS crew. The patient states that she feels very short of breath. The patient does have a wet cough. Patient denies any chest pain. No abdominal complaints. The patient feels more weak and fatigued due to her breathing. The patient does not have any focal neurological problems outside of feeling tired. Otherwise no other concerns. Onset: Today, Sudden Onset Date: 01/27/19 - Related Data Allergies Allergy/AdvReac Type Severity Reaction Status Date / Time sertraline [From Zoloft] Allergy Cannot Verified 10/05/18 11:26 Remember simvastatin [From Zocor] AdvReac Muscle Verified 10/05/18 11:26 Aches Home Meds: Home Meds Insulin Aspart [NovoLOG] 5 unit SUBCUT BIDAC 06/29/16 [History] Insulin Detemir [Levemir Flextouch] 28 units SUBCUT BEDTIME 06/29/16 [History] Cholecalciferol (Vitamin D3) [Vitamin D3] 400 units PO DAILY 10/10/17 [History] Docusate Sodium [Colace] 100 mg PO DAILY PRN 10/10/17 [History] Triamcinolone Acetonide [Triamcinolone Acetonide 0.1% Crm] 1 applic TOP BID PRN 10/10/17 [History] Insulin Aspart [Novolog Flexpen] 7 unit SQ ACLUNCH 10/18/17 [History] Metoprolol Succinate [Toprol XL] 100 mg PO DAILY 10/18/17 [History] Nitroglycerin 0.4 mg SL Q5M PRN 10/18/17 [History] Sennosides/Docusate Sodium [Senna-Docusate Sodium Tablet] 1 tab PO BID PRN 10/18 [History] atorvaSTATin [Lipitor] 40 mg PO BEDTIME 10/18/17 [History] Doxazosin [Cardura] 1 mg PO BEDTIME #30 tablet 11/29/17 [Rx] Ferrous Sulfate 325 mg PO DAILY #30 tablet 11/29/17 [Rx] LORazepam [Ativan] 0.5 mg PO BEDTIME PRN tablet 11/29/17 [Rx] Melatonin 6 mg PO BEDTIME tablet 11/29/17 [Rx] Potassium Chloride [Klor-Con 10] 10 meq PO DAILY #30 tab.er 11/29/17 [Rx] traZODone 50 mg PO BEDTIME 11/29/17 [History] Acetaminophen 650 mg PO Q4H PRN MDD 3000mg/day 02/01/18 [History] Bisacodyl 5 mg PO Q12H PRN 02/01/18 [History] Bisacodyl 10 mg RC ASDIRECTED PRN 02/01/18 [History] [place]/Min Oil/Nella/Wool Alcoh [Eucerin Creme] 1 applic TOP BID 02/01/18 [ History] Ciclopirox Olamine [Ciclopirox] 1 applic TOP BID 02/01/18 [History] Menthol/Methyl Salicylate [Icy Hot] 1 applic TOP BID PRN 02/01/18 [History] Sennosides/Docusate Sodium [Senna Plus Tablet] 1 tab PO BID 02/01/18 [History] amLODIPine Besylate [Amlodipine Besylate] 5 mg PO DAILY 02/01/18 [History] Furosemide [Lasix] 40 mg PO BIDDIURETIC #60 tablet 02/04/18 [Rx] Magnesium Oxide 400 mg PO DAILY #60 tablet 02/04/18 [Rx] Sulfamethoxazole/Trimethoprim [Septra] 1 tab PO BID 5 Days #10 tablet 02/04/18 [ Rx] Past Medical History HEENT History: Reports: Cataract, Hard of Hearing, Retinal Detachment, Other ( See Below) Other HEENT History: presbyopia. hypermetropia. senile nuclear sclerosis. dry eye Cardiovascular History: Reports: Blood Clots/VTE/DVT, High Cholesterol, Hypertension, [place], PVD, Other (See Below) Other Cardiovascular History: palpitation Respiratory History: Reports: None, Pneumonia, Recurrent Gastrointestinal History: Reports: Hemorrhoids Genitourinary History: Reports: None, Renal Disease, Other (See Below) Other Genitourinary History: perisistent proteinuria [employer] INS[employer]OR History: Reports: Prolapsed Uterus Musculoskeletal History: Reports: None Neurological History: Reports: None, CVA Psychiatric History: Reports: Anxiety Endocrine/Metabolic History: Reports: Diabetes, Type II, Other (See Below) Other Endocrine/Metabolic History: lipodystrophy Hematologic History: Reports: Other (See Below) Other Hematologic History: Protein M in blood-inactive at this time; vitamin D deficiency Immunologic History: Reports: None Oncologic (Cancer) History: Reports: Basal Cell Carcinoma Dermatologic History: Reports: Other (See Below) Other Dermatologic History: Intrinsic atopic dermatitis. skin lesion to face - Past Surgical History Head Surgeries/Procedures: Reports: None HEENT Surgical History: Reports: Cataract Surgery Respiratory Surgical History: Reports: None GI Surgical History: Reports: Cholecystectomy Female Surgical History: Reports: Hysterectomy Other Female Surgeries/Procedures: Bladder repair Neurological Surgical History: Reports: None Musculoskeletal Surgical History: Reports: None Social & Family History - Family History Family Medical History: Noncontributory ED ROS GENERAL - Review of Systems Review Of Systems: See Below Constitutional: Denies: Fever, Chills Respiratory: Reports: Shortness of Breath, Cough. Denies: Wheezing Cardiovascular: Denies: Chest Pain, Palpitations GI/Abdominal: Denies: Abdominal Pain, Nausea, Vomiting Skin: Reports: No Symptoms Neurological: Reports: No Symptoms ED EXAM, GENERAL - Physical Exam Exam: See Below Exam Limited By: No Limitations General Appearance: Alert, Mild Distress Respiratory/Chest: Crackles, Rales, Retractions Cardiovascular: Normal Peripheral Pulses, Regular Rate, Rhythm Peripheral Pulses: 2+: Radial (L), Radial (R) GI/Abdominal: Soft, Non-Tender, Abnormal Bowel Sounds (Hypoactive) Neurological: Alert Skin Exam: Warm, Dry, Intact, Normal Color EKG INTERPRETATION EKG Date: 01/27/19 Time: 08:21 Rhythm: NSR Rate (Beats/Min): 76 [place]: Normal P-Wave: Present QRS: Normal ST-T: Normal QT: Normal VA/PQ Interval: 0.17 EKG Interpretation Comments: 1. Sinus Rhythm 2. LVH and ST-T changes Course - Vital Signs Last Recorded V/S: Last Vital Signs Temp 36.2 C 01/27/19 08:00 Pulse 66 01/27/19 09:31 Resp 28 H 01/27/19 09:31 BP 142/63 H 01/27/19 09:31 Pulse Ox 100 01/27/19 09:31 - Orders/Labs/Meds Orders: Active Orders 24 hr Category Date Time Status EKG 12 Lead [EKG Documentation Completion] [RC] STAT Care 01/27/19 07:49 Active Insert [place] Catheter [Insert Urinary Catheter] [OM.PC] Care 01/27/19 08:30 Ordered Q24H Urinary Catheter Assessment [RC] ASDIRECTED Care 01/27/19 08:26 Active Chest 1V Frontal [CR] Stat Exams 01/27/19 07:50 Taken Sodium Chloride 0.9% [Saline Flush] Med 01/27/19 07:52 Active 10 ml FLUSH ASDIRECTED PRN Peripheral IV Insertion Adult [OM.PC] Routine Oth 01/27/19 07:52 Ordered Medication Orders Sodium Chloride (Saline Flush) 10 ml FLUSH ASDIRECTED PRN PRN Reason: Keep Vein Open Last Admin: 01/27/19 08:12 Dose: 10 ml Labs: Laboratory Tests 01/27/19 01/27/19 Range/Units 08:05 08:05 WBC 11.9 H (4.0-10.0) x10^3/uL RBC 3.83 L (4.00-5.50) x10^6/uL Hgb 12.4 (12.0-16.0) g/dL Hct 37.9 (33.0-47.0) % MCV 99.0 H (78.0-93.0) fL MCH 32.4 H (26.0-32.0) pg MCHC 32.7 (32.0-36.0) g/dL RDW Coeff of Mega 13.6 (10.0-15.0) % Plt Count 228 (130-400) x10^3/uL Add Manual Diff Yes Neutrophils % (Manual) 66 (50-80) % Band Neutrophils % 1 (0-6) % Lymphocytes % (Manual) 23 L (25-50) % Reactive Lymphs % 2 H (0) % Monocytes % (Manual) 8 (2-11) % Hypersegmented Neuts Few H Vacuolated Monocytes Rare Platelet Estimate Adequate Macrocytosis 1+ slight H Ovalocytes Rare Sodium 139 (136-145) mmol/L Potassium 4.5 (3.5-5.1) mmol/L Chloride 101 (98-107) mmol/L Carbon Dioxide 25 (21-32) mmol/L Anion Gap 17.5 (10-20) mmol/L BUN 67 H (7-18) mg/dL Creatinine 1.7 H (0.55-1.02) mg/dL Est Cr Clr Drug Dosing TNP Estimated GFR (MDRD) 29 Glucose 431 H* (74-106) mg/dL Calcium 9.6 (8.5-10.1) mg/dL Magnesium 2.0 (1.8-2.4) mg/dL Creatine Kinase 64 (26-192) U/L Troponin I 0.089 H* (<=0.056) ng/mL NT-Pro-B Natriuret Pep 2834 H (<=450) pg/mL Meds: Medications Generic Name Dose Route Start Last Admin Trade Name Freq PRN Reason Stop Dose Admin Sodium Chloride 10 ml 01/27/19 07:52 01/27/19 08:12 Saline Flush FLUSH 10 ml ASDIRECTED PRN Administration Keep Vein Open Discontinued Medications Generic Name Dose Route Start Last Admin Trade Name Freq PRN Reason Stop Dose Admin Furosemide 40 mg 01/27/19 07:52 01/27/19 08:12 Lasix IV 01/27/19 07:53 40 mg ONETIME ONE Administration Departure - Departure Time of Disposition: 09:36 Disposition: DC/Tfer to Acute Hospital 02 Condition: Fair Clinical Impression: Hypoxia, Hyperglycemia Acute on chronic congestive heart failure Qualifiers: Heart failure type: unspecified Qualified Code(s): I50.9 - Heart failure, unspecified - Discharge Information *PRESCRIPTION DRUG MONITORING PROGRAM REVIEWED*: Not Applicable *COPY OF PRESCRIPTION DRUG MONITORING REPORT IN PATIENT [place]AN: Not Applicable Forms: Interfacility Transfer EMTALA - Problem List Review Problem List Initiated/Reviewed/Updated: Yes - My Orders Last 24 Hours: My Active Orders 01/27/19 07:49 EKG 12 Lead [EKG Documentation Completion] [RC] STAT 01/27/19 07:50 Chest 1V Frontal [CR] Stat 01/27/19 07:52 Sodium Chloride 0.9% [Saline Flush] 10 ml FLUSH ASDIRECTED PRN Peripheral IV Insertion Adult [OM.PC] Routine 01/27/19 08:26 Urinary Catheter Assessment [RC] ASDIRECTED 01/27/19 08:30 Insert [place] Catheter [Insert Urinary Catheter] [OM.PC] Q24H - Assessment/Plan Last 24 Hours: My Active Orders 01/27/19 07:49 EKG 12 Lead [EKG Documentation Completion] [RC] STAT 01/27/19 07:50 Chest 1V Frontal [CR] Stat 01/27/19 07:52 Sodium Chloride 0.9% [Saline Flush] 10 ml FLUSH ASDIRECTED PRN Peripheral IV Insertion Adult [OM.PC] Routine 01/27/19 08:26 Urinary Catheter Assessment [RC] ASDIRECTED 01/27/19 08:30 Insert [place] Catheter [Insert Urinary Catheter] [OM.PC] Q24H Assessment:: Acute on Chronic CHF exacerbation Hyperglycemia Hypoxia Plan: Case discussed with Matheus Garcia. Patient accepted in transfer. Patient will be sent via ALS ground. Family and patient agree with transfer and wished to proceed.
[2019-01-27 08:47] LABS: ANION GAP 17.5 mmol/L (10-20); CHLORIDE,CL 101 mmol/L (98-107); SODIUM,NA 139 mmol/L (136-145)
[2019-01-27 10:40] VITALS: BP 138/62
--- NOTE | 2019-01-27 10:41 | CR ---
[id number] RAD/RAD Chest PA or AP 1V EXAM: FRONTAL CHEST INDICATION: Shortness of breath and hypoxia. COMPARISON: October 05, 2018. DISCUSSION: Stable cardiomegaly with development of moderate congestive heart failure and small bilateral effusions. IMPRESSION: 1. Moderate congestive heart failure. Carl Shea MD 01/27/19 1040 Thank you for allowing us to participate in the care of your patient.
== END 2019-01-27 11:07 | disposition short-term general hospital (02) ==
LOC: VM.ED 07:48
DX: I11.0 Hypertensive heart disease with heart failure (principal); I50.23 Acute on chronic systolic (congestive) heart failure; R09.02 Hypoxemia; E11.65 Type 2 diabetes mellitus with hyperglycemia; E78.00 Pure hypercholesterolemia, unspecified; I25.2 Old myocardial infarction; Z88.8 Allergy status to other drugs, medicaments and biological substances; Z79.4 Long term (current) use of insulin; Z79.899 Other long term (current) drug therapy
CPT/HCPCS: 51702; 71045; 80048; 82550; 83735; 83880; 84484; 85025; 93005; 96374; 99285; J1940; 93010; 99284-GF

== ENCOUNTER 2019-07-15 08:40 | Inpatient (IN) | payer MEDICARE, BC, MEDICAID ==
[2019-07-15] MEDS ORDERED: Furosemide 40 MG/4 ML VIAL IV ONE (08:53)
--- NOTE | 2019-07-15 08:59 | EDM.PDOC ---
ED HPI GENERAL MEDICAL PROBLEM - General Chief Complaint: Respiratory Problem Stated Complaint: ER Time Seen by Provider: 07/15/19 08:50 Source of Information: Reports: Patient, EMS, [facility] Records History Limitations: Reports: No Limitations - History of Present Illness INITIAL COMMENTS - FREE TEXT/NARRATIVE: Patient presents via EMS with complaints of shortness of breath that started last night and has progressively worsened. She denies recent illness, cough, fever. Denies chest pain, numbness or tingling to either arm, neck or face. No abnormal speech or facial droop, no unilateral weakness. History of a-fib and is not anticoagulated per her choice. 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 Onset: Today, Gradual Duration: Getting Worse Location: Reports: Chest Associated Symptoms: Reports: Shortness of Breath - Related Data Allergies Allergy/AdvReac Type Severity Reaction Status Date / Time sertraline [From Zoloft] Allergy Cannot Verified 10/05/18 11:26 Remember simvastatin [From Zocor] AdvReac Muscle Verified 10/05/18 11:26 Aches Home Meds: Home Meds Insulin Aspart [NovoLOG] 5 unit SUBCUT BIDAC 06/29/16 [History] Insulin Detemir [Levemir Flextouch] 28 units SUBCUT BEDTIME 06/29/16 [History] Cholecalciferol (Vitamin D3) [Vitamin D3] 400 units PO DAILY 10/10/17 [History] Triamcinolone Acetonide [Triamcinolone Acetonide 0.1% Crm] 1 applic TOP BID PRN 10/10/17 [History] Insulin Aspart [Novolog Flexpen] 7 unit SQ ACLUNCH 10/18/17 [History] Metoprolol Succinate [Toprol XL] 100 mg PO DAILY 10/18/17 [History] Nitroglycerin 0.4 mg SL Q5M PRN 10/18/17 [History] atorvaSTATin [Lipitor] 40 mg PO BEDTIME 10/18/17 [History] Ferrous Sulfate 325 mg PO DAILY #30 tablet 11/29/17 [Rx] Melatonin 6 mg PO BEDTIME tablet 11/29/17 [Rx] Potassium Chloride [Klor-Con 10] 10 meq PO DAILY #30 tab.er 11/29/17 [Rx] Acetaminophen 650 mg PO Q4H PRN MDD 3000mg/day 02/01/18 [History] Bisacodyl 10 mg RC ASDIRECTED PRN 02/01/18 [History] [place]/Min Oil/Nella/Wool Alcoh [Eucerin Creme] 1 applic TOP BID 02/01/18 [ History] Menthol/Methyl Salicylate [Icy Hot] 1 applic TOP BID PRN 02/01/18 [History] Sennosides/Docusate Sodium [Senna Plus Tablet] 1 tab PO BID 02/01/18 [History] Magnesium Oxide 400 mg PO DAILY #60 tablet 02/04/18 [Rx] Aspirin [Adult Low Dose Aspirin EC] 81 mg PO DAILY 07/15/19 [History] Bumetanide 2 mg PO DAILY 07/15/19 [History] Clopidogrel Bisulfate [Clopidogrel] 75 mg PO DAILY 07/15/19 [History] Nystatin 1 applic TOP BID 07/15/19 [History] Omeprazole 20 mg PO DAILY 07/15/19 [History] Polyethylene Glycol 3350 [MiraLAX] 17 gm PO DAILY 07/15/19 [History] traZODone HCl [Trazodone HCl] 25 mg PO BEDTIME 07/15/19 [History] Past Medical History HEENT History: Reports: Cataract, Hard of Hearing, Retinal Detachment, Other ( See Below) Other HEENT History: presbyopia. hypermetropia. senile nuclear sclerosis. 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: Reports: Prolapsed Uterus Musculoskeletal History: Reports: None Neurological History: Reports: None, CVA Psychiatric History: Reports: Anxiety Endocrine/Metabolic History: Reports: Diabetes, Type II, Other (See Below) Other Endocrine/Metabolic History: lipodystrophy Hematologic History: Reports: Other (See Below) Other Hematologic History: Protein M in blood-inactive at this time; vitamin D deficiency Immunologic History: Reports: None Oncologic (Cancer) History: Reports: Basal Cell Carcinoma Dermatologic History: Reports: Other (See Below) Other Dermatologic History: Intrinsic atopic dermatitis. skin lesion to face - Past Surgical History Head Surgeries/Procedures: Reports: None HEENT Surgical History: Reports: Cataract Surgery Respiratory Surgical History: Reports: None GI Surgical History: Reports: Cholecystectomy Female Surgical History: Reports: Hysterectomy Other Female Surgeries/Procedures: Bladder repair Neurological Surgical History: Reports: None Musculoskeletal Surgical History: Reports: None Social & Family History - Family History Family Medical History: Noncontributory ED ROS GENERAL - Review of Systems Review Of Systems: See Below Constitutional: Reports: No Symptoms HEENT: Reports: No Symptoms Respiratory: Reports: Shortness of Breath Cardiovascular: Reports: No Symptoms Endocrine: Reports: No Symptoms GI/Abdominal: Reports: No Symptoms : Reports: No Symptoms Musculoskeletal: Reports: No Symptoms Skin: Reports: No Symptoms Neurological: Reports: No Symptoms Psychiatric: Reports: No Symptoms Hematologic/Lymphatic: Reports: No Symptoms ED EXAM, GENERAL - Physical Exam Exam: See Below Exam Limited By: No Limitations General Appearance: Alert, WD/WN, Moderate Distress Eye Exam: Bilateral Eye: EOMI, Normal Inspection, PERRL Ears: Normal TMs, Hearing Loss Nose: Normal Inspection, Normal Mucosa, No Blood Throat/Mouth: Normal Inspection, Normal Lips, Normal Teeth, Normal Gums, Normal Oropharynx, Normal Voice, No Airway Compromise Head: Atraumatic, Normocephalic Neck: Normal Inspection, Supple, Non-Tender, Full Range of Motion Respiratory/Chest: Crackles, Rales, Accessory Muscle Use, Retractions, Prolonged Expiration Cardiovascular: No Edema, Systolic Murmur, Irregularly Irregular Peripheral Pulses: 2+: Posterior Tibial (L), Posterior Tibial (R), Dorsalis Pedis (L), Dorsalis Pedis (R) GI/Abdominal: Normal Bowel Sounds, Soft, Non-Tender, No Organomegaly, No Distention, No Abnormal Bruit, No Mass Extremities: Normal Inspection, Normal Range of Motion, Non-Tender, Normal Capillary Refill, No Pedal Edema Neurological: Alert, Oriented, CN II-XII Intact, Normal Cognition, Normal Gait, Normal Reflexes, No Motor/Sensory Deficits Psychiatric: Normal Affect, Normal Mood Skin Exam: Warm, Dry, Intact, Normal Color, No Rash Lymphatic: No Adenopathy EKG INTERPRETATION EKG Date: 07/15/19 Time: 08:51 Rhythm: Other (sinus tachycardia) Rate (Beats/Min): 98 [place]: Normal P-Wave: Present QRS: Normal ST-T: Normal QT: Normal Comparison: Change From Previous EKG Course - Orders/Labs/Meds Orders: Active Orders 24 hr Category Date Time Status EKG Documentation Completion [RC] STAT Care 07/15/19 08:50 Ordered RT BiPAP/CPAP [RC] ASDIRECTED Care 07/15/19 08:50 Ordered Chest 1V Frontal [CR] Stat Exams 07/15/19 08:50 Ordered BLOOD GAS ARTERIAL [BG] Stat Lab 07/15/19 08:50 Ordered CBC WITH AUTO DIFF [HEME] Stat Lab 07/15/19 08:50 Ordered COMPREHENSIVE METABOLIC PN,CMP [CHEM] Stat Lab 07/15/19 08:50 Ordered D-DIMER QUANTITATIVE [COAG] Stat Lab 07/15/19 08:50 Ordered INR,PT,PROTHROMBIN TIME [COAG] Stat Lab 07/15/19 08:50 Ordered MAGNESIUM [CHEM] Stat Lab 07/15/19 08:50 Ordered PRO B-TYPE NATRIUR PEPT,BNPPRO [CHEM] Stat Lab 07/15/19 08:50 Ordered TROPONIN I [CHEM] Stat Lab 07/15/19 08:50 Ordered Furosemide [Lasix] Med 07/15/19 08:53 Once 40 mg IV ONETIME ONE Sodium Chloride 0.9% [Saline Flush] Med 07/15/19 08:50 Ordered 10 ml FLUSH ASDIRECTED PRN Saline Lock Insert [OM.PC] Routine Oth 07/15/19 08:50 Ordered Medication Orders Furosemide (Lasix) 40 mg IV ONETIME ONE Stop: 07/15/19 08:54 Sodium Chloride (Saline Flush) 10 ml FLUSH ASDIRECTED PRN PRN Reason: Keep Vein Open Meds: Medications Generic Name Dose Route Start Last Admin Trade Name Freq PRN Reason Stop Dose Admin Furosemide 40 mg 07/15/19 08:53 Lasix IV 07/15/19 08:54 ONETIME ONE Sodium Chloride 10 ml 07/15/19 08:50 Saline Flush FLUSH ASDIRECTED PRN Keep Vein Open - Radiology Interpretation Free Text/Narrative:: CTA negative for PE, chest x-ray indicates right upper lobe atelectasis - Re-Assessments/Exams Free Text/Narrative Re-Assessment/Exam: 07/15/19 12:48 Upon arrival patient transitioned from 8L nasal cannula to bipap with settings of 14/4/50% Oxygenation did improve, RR's did decrease from upper 30's down to low 20's. Has progressively become more aware. Did trial off the bipap to 4L nasal cannula and has been maintaining 95-97% oxygen saturations. Will transfer upstairs. Departure - Departure Time of Disposition: 12:34 Disposition: Admitted As Inpatient 66 Condition: Fair Clinical Impression: CHF (congestive heart failure) - Discharge Information *PRESCRIPTION DRUG MONITORING PROGRAM REVIEWED*: Not Applicable *COPY OF PRESCRIPTION DRUG MONITORING REPORT IN PATIENT [place]AN: Not Applicable Forms: ED Department Discharge ED Communication - ED Communication Date/Time Date: 07/15/19 Time Called: 12:35 - Discussed Case With (1) Discussed Case With (1): Admitting Provider (Dr. Tate contacted regarding patient. Report given. Will admit acute to PCU.) - Problem List & Annotations (1) CHF (congestive heart failure) SNOMED Code(s): 35197383 Code(s): I50.9 - HEART FAILURE, UNSPECIFIED Status: Acute Priority: Medium Current Visit: Yes Qualifiers: Heart failure type: systolic Heart failure chronicity: acute on chronic Qualified Code(s): I50.23 - Acute on chronic systolic (congestive) heart failure - Problem List Review Problem List Initiated/Reviewed/Updated: Yes - My Orders Last 24 Hours: My Active Orders 07/15/19 08:50 EKG Documentation Completion [RC] STAT RT BiPAP/CPAP [RC] ASDIRECTED Chest 1V Frontal [CR] Stat BLOOD GAS ARTERIAL [BG] Stat CBC WITH AUTO DIFF [HEME] Stat COMPREHENSIVE METABOLIC PN,CMP [CHEM] Stat D-DIMER QUANTITATIVE [COAG] Stat INR,PT,PROTHROMBIN TIME [COAG] Stat MAGNESIUM [CHEM] Stat PRO B-TYPE NATRIUR PEPT,BNPPRO [CHEM] Stat TROPONIN I [CHEM] Stat Sodium Chloride 0.9% [Saline Flush] 10 ml FLUSH ASDIRECTED PRN Saline Lock Insert [OM.PC] Routine 07/15/19 08:53 Furosemide [Lasix] 40 mg IV ONETIME ONE - Assessment/Plan Last 24 Hours: My Active Orders 07/15/19 08:50 EKG Documentation Completion [RC] STAT RT BiPAP/CPAP [RC] ASDIRECTED Chest 1V Frontal [CR] Stat BLOOD GAS ARTERIAL [BG] Stat CBC WITH AUTO DIFF [HEME] Stat COMPREHENSIVE METABOLIC PN,CMP [CHEM] Stat D-DIMER QUANTITATIVE [COAG] Stat INR,PT,PROTHROMBIN TIME [COAG] Stat MAGNESIUM [CHEM] Stat PRO B-TYPE NATRIUR PEPT,BNPPRO [CHEM] Stat TROPONIN I [CHEM] Stat Sodium Chloride 0.9% [Saline Flush] 10 ml FLUSH ASDIRECTED PRN Saline Lock Insert [OM.PC] Routine 07/15/19 08:53 Furosemide [Lasix] 40 mg IV ONETIME ONE Assessment:: chf Plan: Admit to acute to Dr. Tate
[2019-07-15 09:46] LABS: CHLORIDE,CL 101 mmol/L (98-107); SODIUM,NA 138 mmol/L (136-145)
[2019-07-15 09:47] LABS: ANION GAP 18.3 mmol/L (10-20)
[2019-07-15] MEDS ORDERED: Sodium Bicarbonate 8.4% 50 MEQ/50 ML Syringe IVPUSH ONE (09:51)
[2019-07-15] MEDS ORDERED: cefTRIAXone 1 GM Vial IVPUSH ONE (09:53)
[2019-07-15] MEDS ORDERED: Iopamidol 612 MG/ML 100 ML Bottle IVPUSH ONE (10:10)
--- NOTE | 2019-07-15 10:34 | CR ---
[id number] RAD/RAD Chest PA or AP 1V EXAM: RAD Chest PA or AP 1V INDICATION: SHORT OF BREATH. COMPARISON: June 27, 2019. DISCUSSION: Cardiomediastinal silhouette is stable in size and contour. Right upper lobe pulmonary infiltrate. Pulmonary hyperinflation. Bibasilar subsegmental atelectasis and/or scarring. IMPRESSION: Right upper lobe pulmonary infiltrate. Follow-up imaging after appropriate therapy in 4-6 weeks is recommended to ensure resolution. Mikey Perales DO 07/15/19 1033 Thank you for allowing us to participate in the care of your patient.
[2019-07-15] MEDS ORDERED: Sodium Chloride 0.9% 1,000 ML IV ONE (10:38)
[2019-07-15] MEDS ORDERED: Bisacodyl 10 MG Supp RECTAL PRN (12:59)
[2019-07-15] MEDS ORDERED: Nitroglycerin 0.4 MG Tab.SL SL PRN (12:59)
--- NOTE | 2019-07-15 14:29 | CT ---
[id number] CT/CTA Chest EXAM: CT ANGIOGRAM CHEST INDICATION: Elevated d-dimer, shortness of breath, diaphoresis and history of atrial fibrillation. COMPARISON: Plain radiographs July 15, 2019. DISCUSSION: Borderline dilation of the main pulmonary arterial segment suggestive of pulmonary hypertension. No filling defects to suggest pulmonary embolism. Motion artifact mildly limits assessment for small and peripheral pulmonary emboli. There are small bilateral pleural effusions. Moderate airspace infiltrates in the perihilar right upper lobe and to a lesser extent right lower lobe and left upper lobe. Scattered bilateral groundglass opacities. These changes could be related to pulmonary edema or infection. No adenopathy. Normal heart size. No pericardial effusion. Right carotid artery stent. Degenerative changes in the spine. IMPRESSION: 1. Negative for pulmonary embolism. 2. Bilateral groundglass opacities and airspace opacities most significant in the perihilar regions. Pulmonary edema is favored over pneumonia. 3. Small bilateral pleural effusions. Carl Shea MD 07/15/19 [id number] Thank you for allowing us to participate in the care of your patient.
--- NOTE | 2019-07-15 15:15 | HP ---
CHIEF COMPLAINT: Shortness of breath. HISTORY OF PRESENT ILLNESS: The patient is an 83-year-old resident of [facility] who became acutely short of breath during the night. The patient was very diaphoretic, ill-appearing, was not having a fever, was sent over by ambulance to be seen at [facility]. Initially, her sats were 84%. She was placed initially on oxygen and then BiPAP to improve her oxygen saturation. She denied chest pain. To note, the patient did have an episode of new onset atrial fib with rapid ventricular response about 2 weeks ago and was hospitalized in [place]. She did spontaneously convert. She was found to have at that time some elevated troponin as well as proBNP levels. The patient was sent back without being on anticoagulant due to her risk of falling and elevated creatinine level. Her daughters accompanied her today and states the patient has not had any problems with choking on food or swallowing, however, she has had a previous stroke with some dysphagia. When seen on rounds a week ago, she was doing quite well. To note, the patient's blood sugars have been quite well controlled as well. She denies toilet aspirating. SUMMARY OF ER COURSE: The patient did receive IV Lasix as well as Rocephin with great improvement of symptoms as well as BiPAP was applied. MEDICATIONS: She is on acetaminophen 325 two pills every 4 hours as needed for pain; aspirin 81 mg 1 pill daily; bisacodyl suppository 10 mg 1 pill daily as needed for constipation; Bumex 2 mg 1 pill daily; Cool and Heat extra Strength cream apply to left shoulder once a day; cranberry tablets 1 pill a day and 2 pills once a day; ferrous sulfate 325 one pill daily; insulin 10 units q.a.m., 15 units q.noon, and 20 units q.p.m.; Klor-Con 10 mEq 1 pill daily; Levemir 35 units every bedtime; Lipitor 40 mg 1 pill a day; magnesium oxide 400 mg 1 pill a day; melatonin 6 mg 1 pill a day; metoprolol extended release 100 mg 1 pill a day; MiraLAX powder 17 g scoop once a day; Nitrostat 0.4 mg every 5 minutes x3 p.r.n. chest pain; nystatin 1000 units to right hip b.i.d.; omeprazole 20 mg 1 pill a day; Plavix 75 mg 1 pill a day; senna plus 1 pill daily as needed for constipation; trazodone 25 mg 1 pill at bedtime; triamcinolone 0.1% to the rash p.r.n.; vitamin D 400 units daily as needed. ALLERGIES: Lisinopril, Zocor, and Zoloft. PAST MEDICAL HISTORY: The patient has had hypertension, chronic kidney disease, hypercholesterolemia, atrial fib. She has coronary artery disease. 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 She has had percutaneous transluminal angioplasty and stenting of right coronary artery. The patient had been on Brilinta when she developed acute kidney injury. She developed kidney problems from lisinopril, placed on aspirin for prophylaxis, but then had chronic anemia. Nephrology was involved. She has had chronic diastolic CHF when she had her non - STEMI on 10/11/2017. Most recent on 06/24/2019, ejection fraction was up to 35% with [id number] mitral regurgitation, normal right ventricular function. She had demand ischemia, non-STEMI at that time when she had atrial fib with rapid ventricular response. Initial coronary artery disease was on 10/01/2017 with PTCA of proximal RCA with a balloon PTCA and stenting of mid left anterior descending coronary artery and resolute drug-eluting stent, PTCA of ostial diagonal branch with balloon PTCA and stenting of left main with drug-eluting stent. She has monoclonal gammopathy of unknown significance, mitral valve disease. Hyperlipidemia; paroxysmal atrial fibrillation; persistent proteinuria; type 2 diabetes mellitus, on long-term insulin; anemia of chronic kidney disease; hypomagnesemia. She has had oropharyngeal dysphagia noted on 11/26/2017 after CVA did improve, but she still had an abnormal video swallow on 01/21/2018. She has had palpitations, peripheral vascular disease, primary insomnia, situational anxiety, swelling legs, basal cell carcinoma. She has had intrinsic atrophic dermatitis. She has had DVT history after she was . She has had cataracts. She has had vitamin D deficiency. PAST SURGICAL HISTORY: She has had gallbladder removed, bladder repair, vaginal hysterectomy, cataract surgery, YAG surgery. 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 She has been . She has 3 adult children in town. She does not currently smoke. She quit smoking in 1984. She does not consume alcohol. The patient has been a resident of [facility] since 2017. REVIEW OF SYSTEMS: The patient has hemiparetic of her left arm. She has been fairly alert. She normally does not have chest pain or shortness of breath. No nausea. She has had previous skin sores and rash in her skin folds, none recently. PHYSICAL EXAMINATION: Vital Signs: Her weight is 82.5 kg as stated, her pulse was 92, temperature 36.3, blood pressure initially was 189/99 and then did come down to 118/55 after Lasix, respiratory rate initially was 36 and had improved to 24, initial sats 82 and then improved to 93. The patient was switched from BiPAP to 4 L nasal cannula. Skin: [place], warm, and dry. HEENT: Pupils are equal and reactive to light. Pharynx and mucous membranes are dry. She is hemiparetic on her left face on her left upper and left lower extremities. Heart: Regular rate with occasional ectopics. Lungs: Clear to auscultation. Abdomen: Soft and nontender. Pelvic: Deferred. Lower Extremities: Slender, thin. No edema. LABORATORY DATA: Showed white blood cell count 10.0, hemoglobin 12.8, platelets 199 with 64 segs, 26 lymphocytes. INR was 0.9. D-dimer elevated at 2.44. Blood gases on arrival to the ER showed pH 7.28, pCO2 of 47, PO2 of 70, bicarb 22, O2 sats were 91 with base excess -5. Sodium was 138, potassium 4.3, creatinine 2.0, BUN 69, GFR 24, glucose 465 (possibly near IV site), lactic acid 5.7, magnesium 2.1, AST 17, ALT 25, alkaline phosphatase 101. Troponin normal at 0.049. CRP 0.2. ProBNP 4822. Her urinalysis showed cloudy urine, 100 mg of protein, 250 glucose. She had large leukocyte esterase, 5 to 10 red blood cells, 10 to 20 white blood cells, few squamous epithelial cells, few bacteria, it was a cast sample. EKG showed sinus rhythm with some lateral ST depression with occasional ectopics. Chest x-ray showed right upper lobe infiltrate was rotated. CT angiogram showed pleural effusions with congestion in right lung. No evidence of PE present. IMPRESSION: 1. Acute respiratory failure, multifactorial. 2. Exacerbation of congestive heart failure. 3. Right upper lobe pneumonitis. 4. Dysphagia secondary to cerebrovascular accident. 5. Type 2 diabetes mellitus, on insulin. 6. Dehydration, mild. 7. Chronic kidney disease. 8. Cerebrovascular disease. 9. Hypertension. 10.Hyperlipidemia. 11. Coronary artery disease with known stents. PLAN: The patient will be admitted to acute care. We will give IV hydration. We will continue IV Rocephin. She did receive temporary Lasix bolusing and so we will hold off on additional IV diuretics unless she worsens. The patient will be placed on Lovenox for DVT prophylaxis. We will get speech therapy involved as well as physical therapy. Also, her oxygen levels will be monitored. Anticipate the patient to be discharged back to the senior care in a few days. To note, the patient's code level status is do not resuscitate/do not intubate. This was again discussed with her daughters as well as the patient, and her urine will be set up for urine culture as well. GM07/15/2019 13:54:45 MODL: 07/15/2019 15:06:38 /[id number] GEE
[2019-07-15] MEDS: Acetaminophen 325 MG Tab PO PRN (15:22)
[2019-07-15] MEDS: Insulin Glargine,Human Rec. Analog 100 Units/ML 3 ML Pen SUBCUT SCH (17:16)
[2019-07-15] MEDS: Insulin Lispro 100 Unit/ML 3 ML KwikPen SUBCUT SCH (17:17)
[2019-07-15] MEDS: Cranberry 500 MG Cap PO SCH (20:05)
[2019-07-15] MEDS: Melatonin 3 MG Tab PO SCH (20:06)
[2019-07-15] MEDS: atorvaSTATin 40 MG Tab PO SCH (20:06)
[2019-07-15] MEDS: Enoxaparin 30 MG/0.3 ML Syringe SUBCUT SCH (20:07)
[2019-07-15] MEDS: traZODone 50 MG Tab PO SCH (20:07)
[2019-07-15] MEDS: Nystatin Crm 30 GM Tube TOP SCH (20:15)
[2019-07-15] MEDS: Triamcinolone Acetonide 0.1% Crm 15 GM Tube TOP SCH (20:16)
[2019-07-15] MEDS: Mineral Oil/Petrolatum,White Crm 454 GM Jar TOP SCH (20:30)
[2019-07-16] MEDS: Acetaminophen 325 MG Tab PO PRN ×2 (01:17→21:17)
[2019-07-16] MEDS: Omeprazole 20 MG Cap.CR PO SCH (06:05)
[2019-07-16] MEDS: Potassium Chloride 10 MEQ Tab.ER PO SCH (07:53)
[2019-07-16] MEDS: Bumetanide 1 MG Tab PO SCH (07:53)
[2019-07-16] MEDS: Cholecalciferol (Vitamin D3) 10 MCG Tab PO SCH (07:53)
[2019-07-16] MEDS: Ferrous Sulfate 325 MG Tab PO SCH (07:53)
[2019-07-16] MEDS: cefTRIAXone 1 GM Vial IVPUSH SCH (07:54)
[2019-07-16] MEDS: Clopidogrel 75 MG Tab PO SCH (07:54)
[2019-07-16] MEDS: Aspirin 81 MG Tab.EC PO SCH (07:54)
[2019-07-16] MEDS: Magnesium Oxide 400 MG Tab PO SCH (07:54)
[2019-07-16] MEDS: Polyethylene Glycol 3350 Powder 17 GM Packet PO SCH (07:55)
[2019-07-16] MEDS: Metoprolol Succinate 50 MG Tab.ER PO SCH (07:58)
[2019-07-16] MEDS: Sodium Chloride 0.9% 10 ML Syringe FLUSH PRN ×2 (08:05→21:26)
[2019-07-16] MEDS: Nystatin Crm 30 GM Tube TOP SCH ×2 (08:21→21:28)
[2019-07-16] MEDS: Triamcinolone Acetonide 0.1% Crm 15 GM Tube TOP SCH ×2 (08:22→21:29)
[2019-07-16] MEDS: Insulin Lispro 100 Unit/ML 3 ML KwikPen SUBCUT SCH ×3 (08:33→19:11)
[2019-07-16] MEDS: Menthol/Methyl Salicylate 85 GM Tube TOP SCH (08:37)
[2019-07-16] MEDS: Mineral Oil/Petrolatum,White Crm 454 GM Jar TOP SCH ×2 (08:42→21:30)
[2019-07-16 08:49] LABS: ANION GAP 14.4 mmol/L (10-20)
--- NOTE | 2019-07-16 09:35 | PN ---
Progress Note for MYRIAM Heard AUS Date: 07/16/2019 Room #: .218 SUBJECTIVE: She had some shoulder pain last night that did get better. She is breathing better this morning. No shortness of breath during the night. Otherwise, no concerns. OBJECTIVE: Vital Signs: Her temperature is 36.8, pulse 74, blood pressure is 146/70, sats are 97% on 3 L. Skin: [place], warm, and dry. Heart: Regular rate and rhythm. Lungs: Clear to auscultation. Back: Slightly diaphoretic. Abdomen: Soft, nontender. Neurologic: She is hemiparetic on her left side. LABORATORY DATA: Lab work today showed that her lactic acid has improved to 2.7 from 5.7 on admission. Her magnesium is stable at 2.0. Her troponin had become elevated last evening at 2.4 from admission being 0.049, but had stayed stable this morning at 2.074. CBC and basic metabolic profile are pending. Chest x- ray is also pending this morning. IMPRESSION: 1. Hypoxemia, multifactorial, improved. 2. Pneumonitis, right upper lobe. 3. Congestive heart failure exacerbation. 4. Coronary artery disease. 5. Non-ST segment myocardial infarction. 6. Chronic kidney disease. 7. Type 2 diabetes mellitus. 8. Cerebrovascular disease with left hemiparesis. PLAN: We will continue the patient with her [place] catheter. We will continue IV Rocephin. She has not been given any extra IV Lasix. We will review chest x- ray today. We will review labs tomorrow. Hopefully, she will be able to be discharged back to the snf either tomorrow or Sunday. GM07/16/2019 08:26:01 MODL: 07/16/2019 09:25:28 /[id number]
--- NOTE | 2019-07-16 11:12 | CR ---
[id number] RAD/RAD Chest PA or AP 1V EXAM: RAD Chest PA or AP 1V INDICATION: PNEUMONIA FOLLOW UP COMPARISON: Yesterday. DISCUSSION: Cardiomegaly and central vascular congestion. Near complete resolution of previously seen right upper lobe parenchymal opacity. Small amount of residual opacity remains. No new cardiopulmonary abnormality. IMPRESSION: Near complete resolution of right upper lobe parenchymal opacity seen on radiograph from yesterday. Elias Mcnair MD 07/16/19 5256 Thank you for allowing us to participate in the care of your patient.
[2019-07-16] MEDS: Cranberry 500 MG Cap PO SCH ×2 (11:28→21:14)
[2019-07-16] MEDS: Insulin Glargine,Human Rec. Analog 100 Units/ML 3 ML Pen SUBCUT SCH (18:26)
[2019-07-16] MEDS: traZODone 50 MG Tab PO SCH (21:10)
[2019-07-16] MEDS: atorvaSTATin 40 MG Tab PO SCH (21:10)
[2019-07-16] MEDS: Melatonin 3 MG Tab PO SCH (21:10)
[2019-07-16] MEDS: Enoxaparin 30 MG/0.3 ML Syringe SUBCUT SCH (21:13)
[2019-07-17] MEDS: Omeprazole 20 MG Cap.CR PO SCH (06:35)
[2019-07-17 07:14] LABS: ANION GAP 13.4 mmol/L (10-20)
[2019-07-17] MEDS: Polyethylene Glycol 3350 Powder 17 GM Packet PO SCH (08:16)
[2019-07-17] MEDS: cefTRIAXone 1 GM Vial IVPUSH SCH (08:16)
[2019-07-17] MEDS: Ferrous Sulfate 325 MG Tab PO SCH (08:16)
[2019-07-17] MEDS: Bumetanide 1 MG Tab PO SCH ×2 (08:16→08:39)
[2019-07-17] MEDS: Clopidogrel 75 MG Tab PO SCH (08:17)
[2019-07-17] MEDS: Potassium Chloride 10 MEQ Tab.ER PO SCH (08:17)
[2019-07-17] MEDS: Magnesium Oxide 400 MG Tab PO SCH (08:17)
[2019-07-17] MEDS: Metoprolol Succinate 50 MG Tab.ER PO SCH (08:18)
[2019-07-17] MEDS: Aspirin 81 MG Tab.EC PO SCH (08:18)
[2019-07-17] MEDS: Cholecalciferol (Vitamin D3) 10 MCG Tab PO SCH (08:19)
[2019-07-17] MEDS ORDERED: Furosemide 20 MG/2 ML VIAL IV ONE (08:21)
[2019-07-17] MEDS: Insulin Lispro 100 Unit/ML 3 ML KwikPen SUBCUT SCH ×3 (08:23→18:06)
[2019-07-17] MEDS: Menthol/Methyl Salicylate 85 GM Tube TOP SCH (08:25)
[2019-07-17] MEDS: Triamcinolone Acetonide 0.1% Crm 15 GM Tube TOP SCH ×2 (08:26→21:34)
[2019-07-17] MEDS: Nystatin Crm 30 GM Tube TOP SCH ×2 (08:26→21:34)
[2019-07-17] MEDS: Mineral Oil/Petrolatum,White Crm 454 GM Jar TOP SCH ×2 (08:40→21:35)
--- NOTE | 2019-07-17 09:27 | PN ---
Progress Note for MYRIAM Heard AUS Date: 07/17/2019 Room #: VM.218 SUBJECTIVE: Today is the patient's 3rd hospital day, being admitted for hypoxemia and shortness of breath that seems to have been more flash pulmonary edema from congestive heart failure, possible pneumonitis in the right upper lobe, as well as urinary tract infection occurring. The patient was placed on some Lasix as well as Rocephin. She has gotten much better. We are awaiting speech consult on the patient. The patient is feeling better. OBJECTIVE: Vital Signs: It is noted that her weight has gone up to 85.45 kg, up 3 kg from admission. Her temperature is 36.6, pulse 59, blood pressure is 155/70, sats are 98% on 2 L. Skin: Slightly diaphoretic. Heart: Regular rate and rhythm. Lungs: Do reveal inspiratory crackles on right base. Abdomen: Soft. Neurologic: The patient is hemiparetic on her left side which is chronic. LABORATORY DATA: Her lab today shows her white blood cell count 6.3, hemoglobin is 9.6, which is stable, at her baseline. Her platelet count is 148 with 47 segs, 2 bands, 45 lymphs. Her sodium was 142, potassium 4.4, creatinine is at her baseline at 1.7, GFR is 25, glucose is 114, calcium is 9.3 this morning. Her LFTs are okay. ProBNP is elevated slightly to 5313. Her urine culture is showing gram-negative rods, which is 10 to the 5th. ID is still pending. IMPRESSION: 1. Hypoxemia, multifactorial. 2. Exacerbation of congestive heart failure. 3. Pneumonitis, right upper lobe, improving. 4. Cerebrovascular disease. 5. Non-ST segment myocardial infarction. 6. Urinary tract infection. 7. Type 2 diabetes mellitus. 8. Chronic kidney disease. PLAN: We will give one time dose of IV Lasix today. We will increase her baseline Bumex to 3 mg daily. We will switch her from Rocephin IV to Ceftin oral antibiotic today. Anticipate 5 more days of antibiotic coverage needed. We are awaiting speech consult on her. We will recheck lab tomorrow as well as her chest x-ray tomorrow. If stable, anticipate the [facility] We will also work on weaning off oxygen, she was not on baseline oxygen to begin with. GM07/17/2019 08:28:25 MODL: 07/17/2019 09:02:04 /[id number]
[2019-07-17] MEDS: Cranberry 500 MG Cap PO SCH ×2 (11:34→21:31)
[2019-07-17] MEDS: Insulin Glargine,Human Rec. Analog 100 Units/ML 3 ML Pen SUBCUT SCH (18:04)
[2019-07-17] MEDS: Acetaminophen 325 MG Tab PO PRN ×2 (18:09→22:43)
[2019-07-17] MEDS: atorvaSTATin 40 MG Tab PO SCH (21:30)
[2019-07-17] MEDS: traZODone 50 MG Tab PO SCH (21:31)
[2019-07-17] MEDS: Melatonin 3 MG Tab PO SCH (21:31)
[2019-07-17] MEDS: Enoxaparin 30 MG/0.3 ML Syringe SUBCUT SCH (21:32)
[2019-07-18] MEDS: Acetaminophen 325 MG Tab PO PRN ×2 (03:14→07:48)
[2019-07-18] MEDS: Omeprazole 20 MG Cap.CR PO SCH (06:49)
[2019-07-18 07:25] LABS: ANION GAP 15.3 mmol/L (10-20)
[2019-07-18] MEDS: Polyethylene Glycol 3350 Powder 17 GM Packet PO SCH (07:46)
[2019-07-18] MEDS: Bumetanide 1 MG Tab PO SCH (07:47)
[2019-07-18] MEDS: Ferrous Sulfate 325 MG Tab PO SCH (07:48)
[2019-07-18] MEDS: Magnesium Oxide 400 MG Tab PO SCH (07:49)
[2019-07-18] MEDS: Potassium Chloride 10 MEQ Tab.ER PO SCH (07:49)
[2019-07-18] MEDS: Metoprolol Succinate 50 MG Tab.ER PO SCH (07:49)
[2019-07-18] MEDS: Clopidogrel 75 MG Tab PO SCH (07:50)
[2019-07-18] MEDS: Cholecalciferol (Vitamin D3) 10 MCG Tab PO SCH (07:50)
[2019-07-18] MEDS: Aspirin 81 MG Tab.EC PO SCH (07:51)
[2019-07-18] MEDS: Nystatin Crm 30 GM Tube TOP SCH (07:53)
[2019-07-18] MEDS: Triamcinolone Acetonide 0.1% Crm 15 GM Tube TOP SCH (07:53)
[2019-07-18] MEDS: Mineral Oil/Petrolatum,White Crm 454 GM Jar TOP SCH (07:54)
[2019-07-18] MEDS: Menthol/Methyl Salicylate 85 GM Tube TOP SCH (07:54)
[2019-07-18] MEDS: Insulin Lispro 100 Unit/ML 3 ML KwikPen SUBCUT SCH (07:55)
--- NOTE | 2019-07-18 08:19 | CR ---
[id number] RAD/RAD Chest PA or AP 1V EXAM: RAD Chest PA or AP 1V INDICATION: CHF FOLLOW-UP. COMPARISON: July 16, 2019. DISCUSSION: Cardiomediastinal silhouette is unchanged in size and contour compared to the prior examination. Resolution of previously seen residual right upper lobe parenchymal opacity. No new infiltrate, effusion, pneumothorax, or edema. IMPRESSION: As above. Elias Mcnair MD 07/18/19 0818 Thank you for allowing us to participate in the care of your patient.
[2019-07-18] MEDS ORDERED: Cefuroxime 250 MG Tab PO SCH ×2 (09:30→20:00)
[2019-07-18 10:30] VITALS: BP 171/83; PULSE 59
--- NOTE | 2019-07-18 11:05 | DISCH ---
PRIMARY DISCHARGE DIAGNOSES: 1. Acute on chronic systolic heart failure exacerbation with known EF of 35% in 06/2019. 2. Possible pneumonia with right upper lobe infiltrate, which resolved with diuresis. The patient did have a mild cough, therefore, was given IV Rocephin plan total ABX for only 5 days total. 3. Hypoxemia, multifactorial resolved. The patient also has some mild pulmonary hypertension. 4. History of stroke. 5. Eub-JK-degfaocsm myocardial infarction with mild bump in troponin to 2.8 at peak trending down. This is likely due to heart failure. 6. Atrial fibrillation. 7. Chronic kidney disease. Baseline creatinine recently in the clinic was 1.5. She was currently 1.9 on discharge. 8. Type 2 diabetes, on long-term insulin. 9. Urinary tract infection. Culture showed gram negative rods likely covered by antibiotics given for pneumonia. 10. Known hx of CAD with previous stenting REASON FOR ADMISSION: On the date of admission, this 83-year-old who is well known for frequent admissions for flash pulmonary edema, came into the emergency room and was placed on BiPAP. She was eventually able to be weaned off. Her initial sats were like 84% and [facility] not [facility]. She received some IV Lasix, IV Rocephin, and her condition overall improved. She received Lovenox during her stay for DVT prophylaxis. She does have an EKG showing AFib and telemetry also showing AFib, but she did not have any tachycardia. She is on a beta jenn. She is not on an JAM inhibitor that is presumably due to her renal insufficiency. She also is on aspirin and a statin medication. Her blood sugars were monitored. They were all acceptable with a high reading of 238. She was tolerating a diet. She had a speech eval. They did not feel she needed any restrictions. Overall, on diuresis, she was down at least 2.9 L. She was feeling better, breathing better, and overall asking to be discharged back to the care center. PHYSICAL EXAMINATION: Vital Signs: On discharge, her weight had actually went up per the bed scale at 85.3, temperature 97.3, pulse 62, blood pressure 162/71, respiratory rate 16, O2 of 94% on room air. General: She is in no acute distress. Heart: Mostly irregular rate and rhythm with occasional extra beats. Lungs: Her lung sounds are pretty clear with some slight crackles in the left base. Abdomen: Positive bowel sounds. Soft, nondistended, nontender. She does have the left hemiparesis which is chronic. Mental Status: She is alert. She is orientated x3. She is answering questions appropriately. On discharge, her proBNP also went up slightly to 6283. She received her last dose of IV Lasix 20 mg yesterday and the increased doses of Bumex from 2-3 mg. Her white count was normal. She states she was coughing just mildly. On discharge, the patient is to resume all her same medications and insulin. The only change is that Bumex will be up to 3 mg daily. She will also receive Ceftin 250 twice daily for 3 more doses to complete her antibiotic course. She will have a BMP and CBC in 1 week. She will see Dr. Tate in the next 1 to 2 weeks on jail rounds or in the clinic if rounds are going to be longer than that. She also will be on 2 L of oxygen at night. No follow up CXR is needed. Greater than 30 minutes spent on the discharge process. MKA: 07/18/2019 09:27:19 MODL: 07/18/2019 10:56:20 /[id number]
--- NOTE | 2019-07-19 08:43 | PCM.SN ---
- Free Text/Narrative Note: Patient grew citrobacter multidrug resistant got 3 days of IV rocephin but was sensitive to that. Went home on ceftin short course in case of pneumonia. Did get a calhoun here just for diuresis that was removed prior to discharge. If further signs or symptoms of UTI I recommend repeating the UA.
== END 2019-07-18 10:45 | DRG 291 ==
LOC: VM.ED 08:40 → VM.MS 12:27 → UNDOADMIN 12:27 → VM.MS 07-16 09:08
PROVIDERS: ADMIT Family Medicine; ATTEND Family Medicine
DX: I13.0 Hypertensive heart and chronic kidney disease with heart failure and stage 1 through stage 4 chronic kidney disease, or unspecified chronic kidney disease (principal); J18.1 Lobar pneumonia, unspecified organism; I50.23 Acute on chronic systolic (congestive) heart failure; J96.01 Acute respiratory failure with hypoxia; N39.0 Urinary tract infection, site not specified; E78.00 Pure hypercholesterolemia, unspecified; I25.10 Atherosclerotic heart disease of native coronary artery without angina pectoris; I48.0 Paroxysmal atrial fibrillation; I73.9 Peripheral vascular disease, unspecified; H04.129 Dry eye syndrome of unspecified lacrimal gland; H25.10 Age-related nuclear cataract, unspecified eye; E11.22 Type 2 diabetes mellitus with diabetic chronic kidney disease; E55.9 Vitamin D deficiency, unspecified; F41.9 Anxiety disorder, unspecified; E86.0 Dehydration; N18.3 Chronic kidney disease, stage 3 (moderate); K21.9 Gastro-esophageal reflux disease without esophagitis; Z88.8 Allergy status to other drugs, medicaments and biological substances; Z79.02 Long term (current) use of antithrombotics/antiplatelets; Z79.82 Long term (current) use of aspirin; Z79.899 Other long term (current) drug therapy; Z85.828 Personal history of other malignant neoplasm of skin; Z90.49 Acquired absence of other specified parts of digestive tract; Z86.73 Personal history of transient ischemic attack (TIA), and cerebral infarction without residual deficits; Z95.5 Presence of coronary angioplasty implant and graft; Z86.718 Personal history of other venous thrombosis and embolism; Z98.49 Cataract extraction status, unspecified eye; I69.991 Dysphagia following unspecified cerebrovascular disease; Z79.4 Long term (current) use of insulin; I25.2 Old myocardial infarction; Z90.89 Acquired absence of other organs
CPT/HCPCS: 36415; 36600; 71045; 71275; 80053; 81001; 82803; 83605; 83735; 83880; 84484; 85025; 85379; 85610; 86140; 87040 ×2; 87086; 87186; 93005; 93010; 94660; 96361; 96374; 96375; 99284; 99285; J0696; J1940; J7030; Q9967; 80048; 82962; 85007; 85027; 87088; 92526-GN; 92610-GN; 94760; A9270-GY; J1650; J1815-GY

== ENCOUNTER 2019-09-03 09:12 | Observation (INO) | payer MEDICARE, BC, MEDICAID ==
--- NOTE | 2019-09-03 09:35 | EDM.PDOC ---
ED HPI GENERAL MEDICAL PROBLEM - General Stated Complaint: SOB Time Seen by Provider: 09/03/19 09:20 Source of Information: Reports: Patient, Group Home Records History Limitations: Reports: No Limitations - History of Present Illness INITIAL COMMENTS - FREE TEXT/NARRATIVE: Pt. presents to ER with complaints of shortness of breath that she noticed this AM. Pt. has a history of diastolic heart failure with admission for respiratory failure on 07-15-19. Cause of her respiratory problems at that time were CHF and pneumonia. Pt. also has a history of CKD. She had a echo in May which showed EF of approx. 35% with mitral and aortic regurgitation. Pt. has a history of atrial fibrillation. She is not anticoagulated due to fall risk. She is on plavix. Pt. denies any cough, productive or otherwise. She denies any fever or chills. No nausea, vomiting or diarrhea. Denies any chest, back, jaw, arm or neck pain. Denies any palpitations. Pt. states that she was feeling well yesterday. She states that her appetite is adequate. Onset: Today Onset Date: 09/03/19 Location: Reports: Chest, Generalized Worsens with: Reports: Breathing Associated Symptoms: Reports: Shortness of Breath. Denies: Confusion, Chest Pain, Cough, Diaphoresis, Fever/Chills, Malaise, Nausea/Vomiting, Seizure, Weakness - Related Data Allergies Allergy/AdvReac Type Severity Reaction Status Date / Time lisinopril AdvReac Severe Other Verified 09/03/19 10:58 sertraline [From Zoloft] AdvReac Intermediate Cannot Verified 09/03/19 10:59 Remember simvastatin [From Zocor] AdvReac Intermediate Muscle Verified 09/03/19 10:59 Aches Home Meds: Home Meds Insulin Aspart [NovoLOG] 15 unit SUBCUT DAILY@1800 06/29/16 [History] Insulin Detemir [Levemir Flextouch] 35 units SUBCUT DAILY 06/29/16 [History] Cholecalciferol (Vitamin D3) [Vitamin D3] 400 units PO DAILY 10/10/17 [History] Triamcinolone Acetonide [Triamcinolone Acetonide 0.1% Crm] 1 applic TOP BID [History] Insulin Aspart [Novolog Flexpen] 20 unit SQ DAILY@1200 10/18/17 [History] Metoprolol Succinate [Toprol XL] 100 mg PO DAILY 10/18/17 [History] Nitroglycerin 0.4 mg SL Q5M PRN 10/18/17 [History] atorvaSTATin [Lipitor] 40 mg PO BEDTIME 10/18/17 [History] Ferrous Sulfate 325 mg PO DAILY #30 tablet 11/29/17 [Rx] Melatonin 6 mg PO BEDTIME tablet 11/29/17 [Rx] Potassium Chloride [Klor-Con 10] 10 meq PO DAILY #30 tab.er 11/29/17 [Rx] Acetaminophen 650 mg PO Q4H PRN MDD 3000mg/day 02/01/18 [History] Bisacodyl 10 mg RECTAL DAILY PRN 02/01/18 [History] [place]/Min Oil/Nella/Wool Alcoh [Eucerin Creme] 1 applic TOP BID 02/01/18 [ History] Menthol/Methyl Salicylate [Icy Hot] 1 applic TOP DAILY 02/01/18 [History] Sennosides/Docusate Sodium [Senna Plus Tablet] 1 tab PO BID PRN 02/01/18 [ History] Magnesium Oxide 400 mg PO DAILY #60 tablet 02/04/18 [Rx] Aspirin [Adult Low Dose Aspirin EC] 81 mg PO DAILY 07/15/19 [History] Clopidogrel Bisulfate [Clopidogrel] 75 mg PO DAILY 07/15/19 [History] Cranberry 500 mg PO BEDTIME 07/15/19 [History] Cranberry Fruit Extract [Cranberry] 1,000 mg PO DAILY@1200 07/15/19 [History] Insulin Aspart [NovoLOG] 10 units SUBCUT DAILY@0800 07/15/19 [History] Nystatin 1 applic TOP BID 07/15/19 [History] Omeprazole 20 mg PO DAILY 07/15/19 [History] Polyethylene Glycol 3350 [MiraLAX] 17 gm PO DAILY 07/15/19 [History] traZODone HCl [Trazodone HCl] 25 mg PO BEDTIME 07/15/19 [History] Bumetanide [Bumex] 3 mg PO DAILY #30 tablet 07/18/19 [Rx] Past Medical History HEENT History: Reports: Cataract, Hard of Hearing, Retinal Detachment, Other ( See Below) Other HEENT History: presbyopia. hypermetropia. senile nuclear sclerosis. 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 skin lesion to face - Past Surgical History HEENT Surgical History: Reports: Cataract Surgery GI Surgical History: Reports: Cholecystectomy Female Surgical History: Reports: Hysterectomy Other Female Surgeries/Procedures: Bladder repair Musculoskeletal Surgical History: Reports: None Social & Family History - Family History Family Medical History: Noncontributory - Caffeine Use Caffeine Use: Reports: Coffee ED ROS GENERAL - Review of Systems Review Of Systems: See Below Constitutional: Reports: Fatigue HEENT: Reports: No Symptoms Respiratory: Reports: Shortness of Breath Cardiovascular: Reports: No Symptoms, Orthopnea Endocrine: Reports: No Symptoms GI/Abdominal: Reports: No Symptoms : Reports: No Symptoms Musculoskeletal: Reports: No Symptoms Skin: Reports: Pallor Neurological: Reports: No Symptoms Psychiatric: Reports: No Symptoms Hematologic/Lymphatic: Reports: No Symptoms Immunologic: Reports: No Symptoms ED EXAM, GENERAL - Physical Exam Exam: See Below Exam Limited By: No Limitations General Appearance: Alert, WD/WN, No Apparent Distress Throat/Mouth: Normal Inspection, Normal Lips, Normal Teeth, Normal Gums, Normal Oropharynx, Normal Voice, No Airway Compromise Head: Atraumatic, Normocephalic Neck: Normal Inspection, Supple, Non-Tender, Full Range of Motion Respiratory/Chest: Decreased Breath Sounds, Crackles Cardiovascular: Normal Peripheral Pulses, Regular Rate, Rhythm, No Edema, No Gallop, No JVD, No Murmur Peripheral Pulses: 4+: Radial (L) GI/Abdominal: Normal Bowel Sounds, Soft, Non-Tender, No Organomegaly, No Distention, No Abnormal Bruit, No Mass, Pelvis Stable (Female) Exam: Deferred Rectal (Female) Exam: Deferred Back Exam: Normal Inspection, Full Range of Motion Extremities: Normal Inspection, Normal Range of Motion, Non-Tender, No Pedal Edema, Normal Capillary Refill Neurological: Alert, Oriented, CN II-XII Intact, Normal Cognition, Normal Gait, Normal Reflexes, No Motor/Sensory Deficits Psychiatric: Normal Affect, Normal Mood Skin Exam: Warm, Dry, Intact, Normal Color, No Rash Lymphatic: No Adenopathy EKG INTERPRETATION Rhythm: NSR [place]: Normal P-Wave: Present QRS: Normal ST-T: Normal QT: Normal Course - Vital Signs Last Recorded V/S: Last Vital Signs Temp 35.8 C 09/03/19 11:05 Pulse 55 L 09/03/19 11:05 Resp 17 09/03/19 11:05 BP 145/62 H 09/03/19 11:05 Pulse Ox 95 09/03/19 11:05 - Orders/Labs/Meds Orders: Active Orders 24 hr Category Date Time Status Patient Status [ADT] Routine ADT 09/03/19 11:17 Ordered EKG Documentation Completion [RC] STAT Care 09/03/19 09:25 Active CULTURE BLOOD [BC] Stat Lab 09/03/19 09:44 Received CULTURE BLOOD [BC] Stat Lab 09/03/19 09:58 Received Blood Culture x2 Reflex Set [OM.PC] Stat Oth 09/03/19 09:26 Ordered Labs: Laboratory Tests 09/03/19 09/03/19 09/03/19 Range/Units 09:44 09:44 09:44 WBC 6.9 (4.0-10.0) x10^3/uL RBC 3.67 L (4.00-5.50) x10^6/uL Hgb 11.8 L D (12.0-16.0) g/dL Hct 35.4 (33.0-47.0) % MCV 96.5 H (78.0-93.0) fL MCH 32.2 H (26.0-32.0) pg MCHC 33.3 (32.0-36.0) g/dL RDW Coeff of Mega 14.5 (10.0-15.0) % Plt Count 176 (130-400) x10^3/uL Neut % (Auto) 62.7 (50.0-80.0) % Lymph % (Auto) 29.4 (25.0-50.0) % [place] % (Auto) 6.0 (2.0-11.0) % Eos % (Auto) 0.7 (0.0-4.0) % Baso % (Auto) 1.2 (0.2-1.2) % PT 9.7 L (10.0-12.8) SEC INR 0.9 L (2.0-3.5) Sodium 142 (69-191) mmol/L Potassium 4.6 (1.5-9.9) mmol/L Chloride 101 (54-184) mmol/L Carbon Dioxide 26 (21-32) mmol/L Anion Gap 19.6 (10-20) mmol/L BUN 75 H* (7-18) mg/dL Creatinine 1.9 H (0.55-1.02) mg/dL Est Cr Clr Drug Dosing TNP Estimated GFR (MDRD) 25 Glucose 206 H (74-106) mg/dL Lactic Acid (0.4-2.0) mmol/L Calcium 9.3 (8.5-10.1) mg/dL Corrected Calcium 9.78 (8.5-10.1) mg/dL Phosphorus 3.6 (2.6-4.7) mg/dL Magnesium 2.3 (1.8-2.4) mg/dL Total Bilirubin 0.6 (0.2-1.0) mg/dL AST 20 (15-37) U/L ALT 23 (14-59) U/L Alkaline Phosphatase 81 (46-116) U/L Troponin I (<=0.056) ng/mL NT-Pro-B Natriuret Pep 5465 H (<=450) pg/mL Total Protein 8.1 (6.4-8.2) g/dL Albumin 3.4 (3.4-5.0) g/dL Globulin 4.7 Albumin/Globulin Ratio 0.72 Amylase 58 (25-115) U/L Urine Color (YELLOW) Urine Appearance (CLEAR) Urine pH (5.0-8.0) Ur Specific [place] Urine Protein (NEGATIVE) mg/dL Urine Glucose (UA) (NEGATIVE) mg/dL Urine Ketones (NEGATIVE) mg/dL Urine Occult Blood (NEGATIVE) Urine Nitrite (NEGATIVE) Urine Bilirubin (NEGATIVE) Urine Urobilinogen (0.2) EU/dL Ur Leukocyte Esterase (NEGATIVE) Urine RBC (NOT SEEN) /HPF Urine WBC (NOT SEEN) /HPF Ur Squamous Epith Cells (NEGATIVE) /HPF Urine Bacteria (NEGATIVE) /HPF Urine Mucus (NEGATIVE) /LPF 09/03/19 09/03/19 09/03/19 Range/Units 09:44 09:44 10:47 WBC (4.0-10.0) x10^3/uL RBC (4.00-5.50) x10^6/uL Hgb (12.0-16.0) g/dL Hct (33.0-47.0) % MCV (78.0-93.0) fL MCH (26.0-32.0) pg MCHC (32.0-36.0) g/dL RDW Coeff of Mega (10.0-15.0) % Plt Count (130-400) x10^3/uL Neut % (Auto) (50.0-80.0) % Lymph % (Auto) (25.0-50.0) % [place] % (Auto) (2.0-11.0) % Eos % (Auto) (0.0-4.0) % Baso % (Auto) (0.2-1.2) % PT (10.0-12.8) SEC INR (2.0-3.5) Sodium (69-191) mmol/L Potassium (1.5-9.9) mmol/L Chloride (54-184) mmol/L Carbon Dioxide (21-32) mmol/L Anion Gap (10-20) mmol/L BUN (7-18) mg/dL Creatinine (0.55-1.02) mg/dL Est Cr Clr Drug Dosing Estimated GFR (MDRD) Glucose (74-106) mg/dL Lactic Acid 3.0 H* (0.4-2.0) mmol/L Calcium (8.5-10.1) mg/dL Corrected Calcium (8.5-10.1) mg/dL Phosphorus (2.6-4.7) mg/dL Magnesium (1.8-2.4) mg/dL Total Bilirubin (0.2-1.0) mg/dL AST (15-37) U/L ALT (14-59) U/L Alkaline Phosphatase (46-116) U/L Troponin I 0.289 H* (<=0.056) ng/mL NT-Pro-B Natriuret Pep (<=450) pg/mL Total Protein (6.4-8.2) g/dL Albumin (3.4-5.0) g/dL Globulin Albumin/Globulin Ratio Amylase (25-115) U/L Urine Color Light yellow (YELLOW) Urine Appearance Clear (CLEAR) Urine pH 7.0 (5.0-8.0) Ur Specific [place] 1.015 Urine Protein 30 H (NEGATIVE) mg/dL Urine Glucose (UA) Negative (NEGATIVE) mg/dL Urine Ketones Negative (NEGATIVE) mg/dL Urine Occult Blood Negative (NEGATIVE) Urine Nitrite Negative (NEGATIVE) Urine Bilirubin Negative (NEGATIVE) Urine Urobilinogen 0.2 (0.2) EU/dL Ur Leukocyte Esterase Small H (NEGATIVE) Urine RBC Not seen (NOT SEEN) /HPF Urine WBC 0-5 (NOT SEEN) /HPF Ur Squamous Epith Cells Rare (NEGATIVE) /HPF Urine Bacteria Not seen (NEGATIVE) /HPF Urine Mucus Not seen (NEGATIVE) /LPF Meds: Medications Discontinued Medications Generic Name Dose Route Start Last Admin Trade Name Freq PRN Reason Stop Dose Admin Furosemide 60 mg 09/03/19 09:27 09/03/19 09:52 Lasix IV 09/03/19 09:28 60 mg ONETIME ONE Administration - Radiology Interpretation Free Text/Narrative:: central vascular congestion. No infiltrate. Departure - Departure Time of Disposition: 11:20 Disposition: Refer to Observation Clinical Impression: CHF, acute, NSTEMI (non-ST elevated myocardial infarction), CKD (chronic kidney disease) stage 3, GFR 30-59 ml/min CHF (congestive heart failure) Qualifiers: Heart failure type: systolic Heart failure chronicity: acute on chronic Qualified Code(s): I50.23 - Acute on chronic systolic (congestive) heart failure - Discharge Information - Problem List Review Problem List Initiated/Reviewed/Updated: Yes - My Orders Last 24 Hours: My Active Orders 09/03/19 09:25 EKG Documentation Completion [RC] STAT 09/03/19 09:26 Blood Culture x2 Reflex Set [OM.PC] Stat 09/03/19 09:44 CULTURE BLOOD [BC] Stat 09/03/19 09:58 CULTURE BLOOD [BC] Stat 09/03/19 11:17 Patient Status [ADT] Routine - Assessment/Plan Admission H&P: Please use this note as an admission H&P Last 24 Hours: My Active Orders 09/03/19 09:25 EKG Documentation Completion [RC] STAT 09/03/19 09:26 Blood Culture x2 Reflex Set [OM.PC] Stat 09/03/19 09:44 CULTURE BLOOD [BC] Stat 09/03/19 09:58 CULTURE BLOOD [BC] Stat 09/03/19 11:17 Patient Status [ADT] Routine Plan: Pt. will be admitted observation. I spoke with Dr. Charles who is business education teacher. Pt. was given lasix 60mg IV and reports feeling much improved. Pt. does have a positive troponin and elevated lactic acid which will be trended. She is a code 2. She does have several small pressure ulcers to her sacral area. Optifoam AG dressings were applied. I did speak with the family. They are in agreement with the plan of care. She has small leukocyte esterase on her urine dip, with negative micro. She is not experiencing any symptoms of UTI so we will hold off on treating this.
[2019-09-03] MEDS: Furosemide 40 MG/4 ML VIAL IV ONE (09:52)
--- NOTE | 2019-09-03 10:14 | CR ---
[id number] RAD/RAD Chest PA or AP 1V EXAM: RAD Chest PA or AP 1V INDICATION: SHORTNESS OF BREATH. COMPARISON: July 18, 2019. DISCUSSION: Cardiomegaly with central vascular congestion similar to the prior examination. Patient is rotated to the right slightly accounting for difference in appearance compared to the prior examination. COPD with scattered pleural/parenchymal scarring. No infiltrate, effusion, pneumothorax, or edema. IMPRESSION: No acute findings or significant change from the prior examination. Elias Mcnair MD 09/03/19 1012 Thank you for allowing us to participate in the care of your patient.
[2019-09-03 10:48] LABS: CHLORIDE,CL 101 mmol/L (54-184); SODIUM,NA 142 mmol/L (69-191)
[2019-09-03 10:49] LABS: ANION GAP 19.6 mmol/L (10-20)
[2019-09-03] MEDS ORDERED: Nitroglycerin 0.4 MG Tab.SL SL PRN (13:15)
[2019-09-03] MEDS: cefTRIAXone 1 GM Vial IVPUSH ONE (15:12)
[2019-09-03] MEDS ORDERED: Sodium Chloride 0.9% 10 ML Syringe FLUSH PRN (15:55)
--- NOTE | 2019-09-03 16:07 | PCM.DCSUM1 ---
Discharge Summary - Hospital Course Free Text/Narrative:: Pt. was admitted for NSTEMI/acute exacerbation of CHF. She was given IV lasix in ER for shortness of breath and states that she is feeling much better. She was admitted for observation, with plan to trend her labs and monitor her symptoms.Her troponin was elevated this AM at 0.289 and was trended. It was 0.711 this afternoon. EKG did not show any acute ST or T wave abnormality. Also, the patient's lactic acid increased from 3.0 to 3.6. She had been afebrile since admission. Chest x-ray was negative for acute infiltrate, but she did have some diminished basilar lung sounds and crackles on examination. Pt. was subsequently started on IV rocephin and azithromycin, in the event that there is an pneumonia that is no evident on chest x-ray. Pt. will be transferred to [facility] Rm. 636. Dr. Che will be accepting. She was given heparin 4000U bolus and started on heparin drip at 1000U/hr. - Discharge Data Discharge Date: 09/03/19 Discharge Disposition: DC/Tfer to Acute Hospital 02 Condition: Good - Referral to Home Health Primary Care Physician: Cyndy Tate MD - Discharge Plan Home Medications: Home Meds Insulin Aspart [NovoLOG] 15 unit SUBCUT DAILY@1800 06/29/16 [History] Insulin Detemir [Levemir Flextouch] 35 units SUBCUT BEDTIME 06/29/16 [History] Cholecalciferol (Vitamin D3) [Vitamin D3] 400 units PO DAILY 10/10/17 [History] Insulin Aspart [Novolog Flexpen] 20 unit SQ DAILY@1200 10/18/17 [History] Metoprolol Succinate [Toprol XL] 100 mg PO DAILY 10/18/17 [History] Nitroglycerin 0.4 mg SL Q5M PRN 10/18/17 [History] atorvaSTATin [Lipitor] 40 mg PO BEDTIME 10/18/17 [History] Ferrous Sulfate 325 mg PO DAILY #30 tablet 11/29/17 [Rx] Melatonin 6 mg PO BEDTIME tablet 11/29/17 [Rx] Potassium Chloride [Klor-Con 10] 10 meq PO DAILY #30 tab.er 11/29/17 [Rx] Acetaminophen 650 mg PO Q4H PRN MDD 3000mg/day 02/01/18 [History] Bisacodyl 10 mg RECTAL DAILY PRN 02/01/18 [History] Sennosides/Docusate Sodium [Senna Plus Tablet] 1 tab PO BID PRN 02/01/18 [ History] Magnesium Oxide 400 mg PO DAILY #60 tablet 02/04/18 [Rx] Aspirin [Adult Low Dose Aspirin EC] 81 mg PO DAILY 07/15/19 [History] Clopidogrel Bisulfate [Clopidogrel] 75 mg PO DAILY 07/15/19 [History] Insulin Aspart [NovoLOG] 10 units SUBCUT DAILY@0800 07/15/19 [History] Omeprazole 20 mg PO DAILY 07/15/19 [History] Polyethylene Glycol 3350 [MiraLAX] 17 gm PO DAILY 07/15/19 [History] traZODone HCl [Trazodone HCl] 25 mg PO BEDTIME 07/15/19 [History] Bumetanide [Bumex] 3 mg PO DAILY 09/03/19 [History] [place]/Min Oil/Nella/Wool Alcoh [Eucerin Creme] 1 applic TOP BID 09/03/19 [ History] Cranberry Fruit Extract [Cranberry] 425 mg PO BEDTIME 09/03/19 [History] Cranberry Fruit Extract [Cranberry] 850 mg PO DAILY@1100 09/03/19 [History] Menthol/Methyl Salicylate [Icy Hot] 1 applic TOP DAILY 09/03/19 [History] Vits A and D/White Pet/Lanolin [A and D Ointment] 1 applic TOP BID 09/03/19 [ History] Forms: ED Department Discharge, Interfacility Transfer EMTALA Referrals: Cyndy Tate MD [Primary Care Provider] - - Discharge Summary/Plan Comment DC Time >30 min.: Yes Discharge Summary/Plan Comment: Pt. will be transported via ALS ground ambulance to [facility]. Dr. Che is accepting. Pt. is a code 2. Discussed findings with patient. They are aware and agree with plan of care. - General Info Date of Service: 09/03/19 Functional Status: Reports: Pain Controlled - Review of Systems General: Reports: Fatigue HEENT: Reports: No Symptoms Pulmonary: Reports: Shortness of Breath. Denies: Cough, Sputum Cardiovascular: Reports: Dyspnea on Exertion, Orthopnea, Other (see HPI) Gastrointestinal: Reports: No Symptoms Genitourinary: Reports: No Symptoms Musculoskeletal: Reports: No Symptoms Skin: Reports: No Symptoms Neurological: Reports: No Symptoms Psychiatric: Reports: No Symptoms - Patient Data Vitals - Most Recent: Last Vital Signs Temp 36.8 C 09/03/19 11:35 Pulse 57 L 09/03/19 11:35 Resp 16 09/03/19 11:35 BP 174/61 H 09/03/19 11:35 Pulse Ox 98 09/03/19 11:35 Weight - Most Recent: 81.647 kg I&O - Last 24 hours: Intake & Output 09/03/19 09/03/19 09/03/19 06:59 14:59 22:59 Output Total 450 Balance -450 Lab Results - Last 24 hrs: Laboratory Results - last 24 hr 09/03/19 09/03/19 09/03/19 Range/Units 09:44 09:44 09:44 WBC 6.9 (4.0-10.0) x10^3/uL RBC 3.67 L (4.00-5.50) x10^6/uL Hgb 11.8 L D (12.0-16.0) g/dL Hct 35.4 (33.0-47.0) % MCV 96.5 H (78.0-93.0) fL MCH 32.2 H (26.0-32.0) pg MCHC 33.3 (32.0-36.0) g/dL RDW Coeff of Mega 14.5 (10.0-15.0) % Plt Count 176 (130-400) x10^3/uL Neut % (Auto) 62.7 (50.0-80.0) % Lymph % (Auto) 29.4 (25.0-50.0) % [place] % (Auto) 6.0 (2.0-11.0) % Eos % (Auto) 0.7 (0.0-4.0) % Baso % (Auto) 1.2 (0.2-1.2) % PT 9.7 L (10.0-12.8) SEC INR 0.9 L (2.0-3.5) Sodium 142 (69-191) mmol/L Potassium 4.6 (1.5-9.9) mmol/L Chloride 101 (54-184) mmol/L Carbon Dioxide 26 (21-32) mmol/L Anion Gap 19.6 (10-20) mmol/L BUN 75 H* (7-18) mg/dL Creatinine 1.9 H (0.55-1.02) mg/dL Est Cr Clr Drug Dosing TNP Estimated GFR (MDRD) 25 Glucose 206 H (74-106) mg/dL Lactic Acid (0.4-2.0) mmol/L Calcium 9.3 (8.5-10.1) mg/dL Corrected Calcium 9.78 (8.5-10.1) mg/dL Phosphorus 3.6 (2.6-4.7) mg/dL Magnesium 2.3 (1.8-2.4) mg/dL Total Bilirubin 0.6 (0.2-1.0) mg/dL AST 20 (15-37) U/L ALT 23 (14-59) U/L Alkaline Phosphatase 81 (46-116) U/L Troponin I (<=0.056) ng/mL NT-Pro-B Natriuret Pep 5465 H (<=450) pg/mL Total Protein 8.1 (6.4-8.2) g/dL Albumin 3.4 (3.4-5.0) g/dL Globulin 4.7 Albumin/Globulin Ratio 0.72 Amylase 58 (25-115) U/L Urine Color (YELLOW) Urine Appearance (CLEAR) Urine pH (5.0-8.0) Ur Specific [place] Urine Protein (NEGATIVE) mg/dL Urine Glucose (UA) (NEGATIVE) mg/dL Urine Ketones (NEGATIVE) mg/dL Urine Occult Blood (NEGATIVE) Urine Nitrite (NEGATIVE) Urine Bilirubin (NEGATIVE) Urine Urobilinogen (0.2) EU/dL Ur Leukocyte Esterase (NEGATIVE) Urine RBC (NOT SEEN) /HPF Urine WBC (NOT SEEN) /HPF Ur Squamous Epith Cells (NEGATIVE) /HPF Urine Bacteria (NEGATIVE) /HPF Urine Mucus (NEGATIVE) /LPF 09/03/19 09/03/19 09/03/19 Range/Units 09:44 09:44 10:47 WBC (4.0-10.0) x10^3/uL RBC (4.00-5.50) x10^6/uL Hgb (12.0-16.0) g/dL Hct (33.0-47.0) % MCV (78.0-93.0) fL MCH (26.0-32.0) pg MCHC (32.0-36.0) g/dL RDW Coeff of Mega (10.0-15.0) % Plt Count (130-400) x10^3/uL Neut % (Auto) (50.0-80.0) % Lymph % (Auto) (25.0-50.0) % [place] % (Auto) (2.0-11.0) % Eos % (Auto) (0.0-4.0) % Baso % (Auto) (0.2-1.2) % PT (10.0-12.8) SEC INR (2.0-3.5) Sodium (69-191) mmol/L Potassium (1.5-9.9) mmol/L Chloride (54-184) mmol/L Carbon Dioxide (21-32) mmol/L Anion Gap (10-20) mmol/L BUN (7-18) mg/dL Creatinine (0.55-1.02) mg/dL Est Cr Clr Drug Dosing Estimated GFR (MDRD) Glucose (74-106) mg/dL Lactic Acid 3.0 H* (0.4-2.0) mmol/L Calcium (8.5-10.1) mg/dL Corrected Calcium (8.5-10.1) mg/dL Phosphorus (2.6-4.7) mg/dL Magnesium (1.8-2.4) mg/dL Total Bilirubin (0.2-1.0) mg/dL AST (15-37) U/L ALT (14-59) U/L Alkaline Phosphatase (46-116) U/L Troponin I 0.289 H* (<=0.056) ng/mL NT-Pro-B Natriuret Pep (<=450) pg/mL Total Protein (6.4-8.2) g/dL Albumin (3.4-5.0) g/dL Globulin Albumin/Globulin Ratio Amylase (25-115) U/L Urine Color Light yellow (YELLOW) Urine Appearance Clear (CLEAR) Urine pH 7.0 (5.0-8.0) Ur Specific [place] 1.015 Urine Protein 30 H (NEGATIVE) mg/dL Urine Glucose (UA) Negative (NEGATIVE) mg/dL Urine Ketones Negative (NEGATIVE) mg/dL Urine Occult Blood Negative (NEGATIVE) Urine Nitrite Negative (NEGATIVE) Urine Bilirubin Negative (NEGATIVE) Urine Urobilinogen 0.2 (0.2) EU/dL Ur Leukocyte Esterase Small H (NEGATIVE) Urine RBC Not seen (NOT SEEN) /HPF Urine WBC 0-5 (NOT SEEN) /HPF Ur Squamous Epith Cells Rare (NEGATIVE) /HPF Urine Bacteria Not seen (NEGATIVE) /HPF Urine Mucus Not seen (NEGATIVE) /LPF 09/03/19 09/03/19 Range/Units 14:03 14:03 WBC (4.0-10.0) x10^3/uL RBC (4.00-5.50) x10^6/uL Hgb (12.0-16.0) g/dL Hct (33.0-47.0) % MCV (78.0-93.0) fL MCH (26.0-32.0) pg MCHC (32.0-36.0) g/dL RDW Coeff of Mega (10.0-15.0) % Plt Count (130-400) x10^3/uL Neut % (Auto) (50.0-80.0) % Lymph % (Auto) (25.0-50.0) % [place] % (Auto) (2.0-11.0) % Eos % (Auto) (0.0-4.0) % Baso % (Auto) (0.2-1.2) % PT (10.0-12.8) SEC INR (2.0-3.5) Sodium (69-191) mmol/L Potassium (1.5-9.9) mmol/L Chloride (54-184) mmol/L Carbon Dioxide (21-32) mmol/L Anion Gap (10-20) mmol/L BUN (7-18) mg/dL Creatinine (0.55-1.02) mg/dL Est Cr Clr Drug Dosing Estimated GFR (MDRD) Glucose (74-106) mg/dL Lactic Acid 3.6 H* (0.4-2.0) mmol/L Calcium (8.5-10.1) mg/dL Corrected Calcium (8.5-10.1) mg/dL Phosphorus (2.6-4.7) mg/dL Magnesium (1.8-2.4) mg/dL Total Bilirubin (0.2-1.0) mg/dL AST (15-37) U/L ALT (14-59) U/L Alkaline Phosphatase (46-116) U/L Troponin I 0.711 H* (<=0.056) ng/mL NT-Pro-B Natriuret Pep (<=450) pg/mL Total Protein (6.4-8.2) g/dL Albumin (3.4-5.0) g/dL Globulin Albumin/Globulin Ratio Amylase (25-115) U/L Urine Color (YELLOW) Urine Appearance (CLEAR) Urine pH (5.0-8.0) Ur Specific [place] Urine Protein (NEGATIVE) mg/dL Urine Glucose (UA) (NEGATIVE) mg/dL Urine Ketones (NEGATIVE) mg/dL Urine Occult Blood (NEGATIVE) Urine Nitrite (NEGATIVE) Urine Bilirubin (NEGATIVE) Urine Urobilinogen (0.2) EU/dL Ur Leukocyte Esterase (NEGATIVE) Urine RBC (NOT SEEN) /HPF Urine WBC (NOT SEEN) /HPF Ur Squamous Epith Cells (NEGATIVE) /HPF Urine Bacteria (NEGATIVE) /HPF Urine Mucus (NEGATIVE) /LPF Med Orders - Current: Current Medications Acetaminophen (Tylenol) 650 mg PO Q4H PRN PRN Reason: Pain/Fever Aspirin (Halfprin) 81 mg PO DAILY [facility] Atorvastatin Calcium (Lipitor) 40 mg PO BEDTIME [facility] Bumetanide (Bumex) 2 mg PO DAILY [facility] Cholecalciferol (Vitamin D3) 10 mcg PO DAILY [facility] Clopidogrel Bisulfate (Plavix) 75 mg PO DAILY [facility] Ferrous Sulfate (Ferrous Sulfate) 325 mg PO DAILY [facility] Heparin Sodium (Porcine) (Heparin Sodium) 4,000 units IVPUSH .BOLUS ONE Stop: 09/03/19 15:54 Heparin Sodium/Sodium Chloride (Heparin 25,000 Units In 1/2 Ns 500 Ml) 25,000 units in 500 mls @ 20 mls/hr IV TITRATE [facility]; Protocol Magnesium Oxide (Magnesium Oxide) 400 mg PO DAILY [facility] Melatonin (Melatonin) 6 mg PO BEDTIME [facility] Metoprolol Succinate (Toprol Xl) 100 mg PO DAILY [facility] Nitroglycerin (Nitrostat) 0.4 mg SL Q5M PRN PRN Reason: Chest Pain Non-Formulary Medication (Insulin Aspart [Novolog]) 10 units SUBCUT DAILY@0800 [facility] Non-Formulary Medication (Insulin Aspart [Novolog]) 15 unit SUBCUT DAILY@1800 [facility] Non-Formulary Medication (Insulin Aspart [Novolog Flexpen]) 20 unit SQ DAILY@ 1200 [facility] Non-Formulary Medication (Insulin Detemir [Levemir Flextouch]) 35 units SUBCUT BEDTIME [facility] Nystatin (Nystatin Crm) 0 gm TOP BID [facility] Omeprazole (Omeprazole) 20 mg PO ACBRK [facility] Potassium Chloride (Klor-Con 10) 10 meq PO DAILY [facility] Senna/Docusate Sodium (Senna Plus) 1 tab PO BID PRN PRN Reason: Constipation Sodium Chloride (Saline Flush) 10 ml FLUSH ASDIRECTED PRN PRN Reason: Keep Vein Open Trazodone HCl (Trazodone) 25 mg PO BEDTIME [facility] Discontinued Medications Ceftriaxone Sodium (Rocephin) 1 gm IVPUSH STAT ONE Stop: 09/03/19 14:55 Last Admin: 09/03/19 15:12 Dose: 1 gm Furosemide (Lasix) 60 mg IV ONETIME ONE Stop: 09/03/19 09:28 Last Admin: 09/03/19 09:52 Dose: 60 mg - Exam General: Reports: Alert, Oriented HEENT: Reports: Pupils Equal, Pupils Reactive, EOMI, Mucous Membr. Moist/[place] Neck: Reports: Supple Lungs: Reports: Decreased Breath Sounds, Crackles Cardiovascular: Reports: Regular Rate, Regular Rhythm GI/Abdominal Exam: Normal Bowel Sounds, Soft, Non-Tender, No Organomegaly, No Distention Extremities: Normal Inspection, No Pedal Edema Skin: Reports: Warm, Dry, Other (skin breakdown to buttocks/sacral area. See H and P.) Wound/Incisions: Reports: Healing Well Neurological: Reports: No New Focal Deficit Psy/Mental Status: Reports: Alert, Normal Affect, Normal Mood
[2019-09-03] MEDS: Heparin Sodium 5,000 Units/ML Vial IVPUSH ONE (16:27)
[2019-09-03 16:45] VITALS: BP 196/74; PULSE 66
[2019-09-03] MEDS: Heparin Sodium/0.45% NaCl 25,000 UNITS/500 ML BAG IV SCH (17:00)
[2019-09-03] MEDS: Acetaminophen 325 MG Tab PO PRN (17:11)
[2019-09-03] MEDS ORDERED: INSULIN ASPART 15 UNIT SUBCUT SCH (18:00)
[2019-09-03] MEDS ORDERED: Nystatin Crm 30 GM Tube TOP SCH (20:00)
[2019-09-03] MEDS ORDERED: traZODone 50 MG Tab PO SCH (20:00)
[2019-09-03] MEDS ORDERED: INSULIN DETEMIR 35 UNIT SUBCUT SCH (20:00)
[2019-09-03] MEDS ORDERED: Melatonin 3 MG Tab PO SCH (20:00)
[2019-09-03] MEDS ORDERED: atorvaSTATin 40 MG Tab PO SCH (20:00)
[2019-09-04] MEDS ORDERED: Omeprazole 20 MG Cap.CR PO SCH (07:00)
[2019-09-04] MEDS ORDERED: Aspirin 81 MG Tab.EC PO SCH (08:00)
[2019-09-04] MEDS ORDERED: Metoprolol Succinate 50 MG Tab.ER PO SCH (08:00)
[2019-09-04] MEDS ORDERED: Non-Formulary Medication 1 Each (Insulin Aspart [Novolog] 10 UNITS) SUBCUT SCH ×2 (08:00)
[2019-09-04] MEDS ORDERED: Magnesium Oxide 400 MG Tab PO SCH (08:00)
[2019-09-04] MEDS ORDERED: Bumetanide 1 MG Tab PO SCH (08:00)
[2019-09-04] MEDS ORDERED: Ferrous Sulfate 325 MG Tab PO SCH (08:00)
[2019-09-04] MEDS ORDERED: Potassium Chloride 10 MEQ Tab.ER PO SCH (08:00)
[2019-09-04] MEDS ORDERED: Clopidogrel 75 MG Tab PO SCH (08:00)
[2019-09-04] MEDS ORDERED: Cholecalciferol (Vitamin D3) 10 MCG Tab PO SCH (08:00)
[2019-09-04] MEDS ORDERED: INSULIN ASPART 20 UNIT SQ SCH (12:00)
== END 2019-09-03 17:20 | disposition short-term general hospital (02) ==
LOC: SUPCPDRO 09:12 → VM.ED 09:12 → VM.MS 11:17
PROVIDERS: ADMIT Physician Assistant; ATTEND Physician Assistant
DX: I21.4 Non-ST elevation (NSTEMI) myocardial infarction (principal); I13.0 Hypertensive heart and chronic kidney disease with heart failure and stage 1 through stage 4 chronic kidney disease, or unspecified chronic kidney disease; I50.43 Acute on chronic combined systolic (congestive) and diastolic (congestive) heart failure; E11.22 Type 2 diabetes mellitus with diabetic chronic kidney disease; N18.3 Chronic kidney disease, stage 3 (moderate); I08.0 Rheumatic disorders of both mitral and aortic valves; I48.91 Unspecified atrial fibrillation; E78.00 Pure hypercholesterolemia, unspecified; Z79.02 Long term (current) use of antithrombotics/antiplatelets; Z88.8 Allergy status to other drugs, medicaments and biological substances; Z79.4 Long term (current) use of insulin; Z79.82 Long term (current) use of aspirin; Z79.899 Other long term (current) drug therapy
CPT/HCPCS: 36415; 51702; 71045; 80053; 81001; 82150; 82962; 83605; 83735; 83880; 84100; 84484; 85025; 85610; 87040; 93005; 93010; 96374; 96375; 96376; 99236; 99285; A9270; G0378; J0696; J1644; J1940

== ENCOUNTER 2019-11-03 09:39 | Emergency (ER) | payer MEDICARE, BC, MEDICAID ==
[2019-11-03 10:16] VITALS: BP 204/104; PULSE 78
--- NOTE | 2019-11-03 10:43 | CR ---
[id number] RAD/RAD Chest PA or AP 1V EXAM: RAD Chest PA or AP 1V INDICATION: SHORTNESS OF BREATH. COMPARISON: September 2019. DISCUSSION: Cardiomegaly and central vascular congestion. Central parenchymal opacification with bilateral basal predominant interlobular septal thickening. Findings are nonspecific but suggest early changes of fluid retention the chest. Correlate for CHF exacerbation. No pneumonia or pneumothorax. IMPRESSION: As above. Elias Mcnair MD 11/03/19 1042 Thank you for allowing us to participate in the care of your patient.
[2019-11-03 10:56] LABS: ANION GAP 19.4 mmol/L (10-20)
[2019-11-03] MEDS: Furosemide 40 MG/4 ML VIAL IV ONE (11:16)
[2019-11-03] MEDS: Insulin Regular, Human 100 Units/ML 3 ML Vial SUBCUT ONE (11:17)
--- NOTE | 2019-11-03 11:50 | EDM.PDOC ---
ED HPI GENERAL MEDICAL PROBLEM - General Chief Complaint: Respiratory Problem Stated Complaint: ER Time Seen by Provider: 11/03/19 09:45 Source of Information: Reports: Patient, Skilled Nursing Records History Limitations: Reports: No Limitations - History of Present Illness INITIAL COMMENTS - FREE TEXT/NARRATIVE: Increased SOB over past several days Was seen at [place] 4 days ago by usual provider No fever No chest pain Occasional cough Had similar episode a month ago and was on increased diruetic and supplemental oxygen for a week Onset: Gradual Duration: Day(s): Location: Reports: Chest Worsens with: Reports: Breathing, Movement Associated Symptoms: Reports: Cough - Related Data Allergies Allergy/AdvReac Type Severity Reaction Status Date / Time lisinopril AdvReac Severe Other Verified 11/03/19 10:41 sertraline [From Zoloft] AdvReac Intermediate Cannot Verified 11/03/19 10:41 Remember simvastatin [From Zocor] AdvReac Intermediate Muscle Verified 11/03/19 10:41 Aches Home Meds: Home Meds Insulin Aspart [NovoLOG] 15 unit SUBCUT DAILY@1800 06/29/16 [History] Insulin Detemir [Levemir Flextouch] 35 units SUBCUT BEDTIME 06/29/16 [History] Cholecalciferol (Vitamin D3) [Vitamin D3] 400 units PO DAILY 10/10/17 [History] Insulin Aspart [Novolog Flexpen] 20 unit SQ DAILY@1200 10/18/17 [History] Metoprolol Succinate [Toprol XL] 100 mg PO DAILY 10/18/17 [History] Nitroglycerin 0.4 mg SL Q5M PRN 10/18/17 [History] atorvaSTATin [Lipitor] 40 mg PO BEDTIME 10/18/17 [History] Ferrous Sulfate 325 mg PO DAILY #30 tablet 11/29/17 [Rx] Melatonin 6 mg PO BEDTIME tablet 11/29/17 [Rx] Acetaminophen 650 mg PO Q4H PRN MDD 3000mg/day 02/01/18 [History] Bisacodyl 10 mg RECTAL DAILY PRN 02/01/18 [History] Sennosides/Docusate Sodium [Senna Plus Tablet] 1 tab PO BID PRN 02/01/18 [ History] Magnesium Oxide 400 mg PO DAILY #60 tablet 02/04/18 [Rx] Aspirin [Adult Low Dose Aspirin EC] 81 mg PO DAILY 07/15/19 [History] Insulin Aspart [NovoLOG] 10 units SUBCUT DAILY@0800 07/15/19 [History] Omeprazole 20 mg PO DAILY 07/15/19 [History] Polyethylene Glycol 3350 [MiraLAX] 17 gm PO DAILY 07/15/19 [History] traZODone HCl [Trazodone HCl] 25 mg PO BEDTIME 07/15/19 [History] Bumetanide [Bumex] 1 mg PO DAILY 09/03/19 [History] [place]/Min Oil/Nella/Wool Alcoh [Eucerin Creme] 1 applic TOP BID 09/03/19 [ History] Cranberry Fruit Extract [Cranberry] 425 mg PO TID 09/03/19 [History] Menthol/Methyl Salicylate [Icy Hot] 1 applic TOP DAILY 09/03/19 [History] Isosorbide Mononitrate [Isosorbide Mononitrate ER] 30 mg PO DAILY 09/29/19 [ History] Ticagrelor [Brilinta] 60 mg PO BID 09/29/19 [History] ALPRAZolam [Xanax] 0.25 mg PO DAILY PRN 11/03/19 [History] Past Medical History HEENT History: Reports: Cataract, Hard of Hearing, Retinal Detachment, Other ( See Below) Other HEENT History: presbyopia. hypermetropia. senile nuclear sclerosis. dry eye Cardiovascular History: Reports: Blood Clots/VTE/DVT, High Cholesterol, Hypertension, [place], PVD, Other (See Below) Other Cardiovascular History: palpitation Respiratory History: Reports: None, Pneumonia, Recurrent Gastrointestinal History: Reports: Hemorrhoids Genitourinary History: Reports: Renal Disease, Other (See Below) Other Genitourinary History: perisistent proteinuria [employer] History: Reports: Prolapsed Uterus Musculoskeletal History: Reports: None Neurological History: Reports: CVA Psychiatric History: Reports: Anxiety Endocrine/Metabolic History: Reports: Diabetes, Type II, Other (See Below) Other Endocrine/Metabolic History: lipodystrophy Hematologic History: Reports: Other (See Below) Other Hematologic History: Protein M in blood-inactive at this time; vitamin D deficiency Immunologic History: Reports: None Oncologic (Cancer) History: Reports: Basal Cell Carcinoma Dermatologic History: Reports: Other (See Below) Other Dermatologic History: Intrinsic atopic dermatitis. skin lesion to face - Past Surgical History Head Surgeries/Procedures: Reports: None HEENT Surgical History: Reports: Cataract Surgery Cardiovascular Surgical History: Reports: Coronary Artery Stent GI Surgical History: Reports: Cholecystectomy Female Surgical History: Reports: Hysterectomy Other Female Surgeries/Procedures: Bladder repair Musculoskeletal Surgical History: Reports: None Social & Family History - Family History Family Medical History: Noncontributory - Tobacco Use Smoking Status *Q: Former Smoker Used Tobacco, but Quit: Yes Month/Year Tobacco Last Used: 1989 - Caffeine Use Caffeine Use: Reports: Coffee Caffeine Use Comment: 2 cups a day. - Recreational Drug Use Recreational Drug Use: No ED ROS GENERAL - Review of Systems Review Of Systems: See Below HEENT: Reports: No Symptoms Respiratory: Reports: Shortness of Breath, Cough Cardiovascular: Reports: No Symptoms GI/Abdominal: Reports: No Symptoms ED EXAM, GENERAL - Physical Exam Exam: See Below Exam Limited By: No Limitations General Appearance: Mild Distress Throat/Mouth: Normal Inspection Neck: Supple Respiratory/Chest: Decreased Breath Sounds, Crackles Cardiovascular: Regular Rate, Rhythm Extremities: Pedal Edema Neurological: No Motor/Sensory Deficits Course - Vital Signs Last Recorded V/S: Last Vital Signs Temp 36.1 C 11/03/19 09:45 Pulse 78 11/03/19 09:45 Resp 28 H 11/03/19 09:45 BP 204/104 H 11/03/19 09:45 Pulse Ox 94 L 11/03/19 09:45 - Orders/Labs/Meds Orders: Active Orders 24 hr Category Date Time Status EKG 12 Lead [EKG Documentation Completion] [RC] STAT Care 11/03/19 10:04 Active Labs: Laboratory Tests 11/03/19 11/03/19 Range/Units 10:14 10:14 WBC 10.4 H (4.0-10.0) x10^3/uL RBC 3.43 L (4.00-5.50) x10^6/uL Hgb 11.1 L D (12.0-16.0) g/dL Hct 34.8 (33.0-47.0) % MCV 101.5 H D (78.0-93.0) fL MCH 32.4 H (26.0-32.0) pg MCHC 31.9 L (32.0-36.0) g/dL RDW Coeff of Mega 14.8 (10.0-15.0) % Plt Count 219 (130-400) x10^3/uL Neut % (Auto) 76.6 (50.0-80.0) % Lymph % (Auto) 17.9 L (25.0-50.0) % [place] % (Auto) 3.9 (2.0-11.0) % Eos % (Auto) 0.8 (0.0-4.0) % Baso % (Auto) 0.8 (0.2-1.2) % Sodium 140 (136-145) mmol/L Potassium 4.4 (3.5-5.1) mmol/L Chloride 102 (98-107) mmol/L Carbon Dioxide 23 (21-32) mmol/L Anion Gap 19.4 (10-20) mmol/L BUN 59 H (7-18) mg/dL Creatinine 1.9 H (0.55-1.02) mg/dL Est Cr Clr Drug Dosing 21.43 mL/min Estimated GFR (MDRD) 25 Glucose 452 H* (74-106) mg/dL Calcium 9.5 (8.5-10.1) mg/dL Corrected Calcium 10.14 H (8.5-10.1) mg/dL Total Bilirubin 0.5 (0.2-1.0) mg/dL AST 13 L (15-37) U/L ALT 16 (14-59) U/L Alkaline Phosphatase 94 (46-116) U/L Troponin I 0.045 (<=0.056) ng/mL NT-Pro-B Natriuret Pep 4889 H (<=450) pg/mL Total Protein 8.1 (6.4-8.2) g/dL Albumin 3.2 L (3.4-5.0) g/dL Globulin 4.9 Albumin/Globulin Ratio 0.65 Meds: Medications Discontinued Medications Generic Name Dose Route Start Last Admin Trade Name Freq PRN Reason Stop Dose Admin Furosemide 40 mg 11/03/19 11:06 11/03/19 11:16 Lasix IV 11/03/19 11:07 40 mg ONETIME ONE Administration Insulin Human Regular 10 unit 11/03/19 11:07 11/03/19 11:17 Humulin R SUBCUT 11/03/19 11:08 10 units ONETIME ONE Administration - Re-Assessments/Exams Free Text/Narrative Re-Assessment/Exam: 11/03/19 11:51 See lab and CXR EKG unchanged from previous Pt given IV Lasix in ER Findings d/w usual provider and family Will return to [place] with increased Bumex and supplemental oxygen Departure - Departure Time of Disposition: 12:00 Disposition: DC/Tfer to [facility] Clinical Impression: Pulmonary edema Qualifiers: Chronicity: acute Qualified Code(s): J81.0 - Acute pulmonary edema - Discharge Information Referrals: Cyndy Tate MD [Primary Care Provider] - Additional Instructions: Increased Bumex to BID for 3 days Supplemental oxygen as needed Sepsis Event Note - Evaluation Sepsis Screening Result: No Definite Risk - Focused Exam Vital Signs: Vital Signs Temp Pulse Resp BP Pulse Ox 11/03/19 09:45 36.1 C 78 28 H 204/104 H 94 L Date Exam was Performed: 11/03/19 Time Exam was Performed: 11:44 - My Orders Last 24 Hours: My Active Orders 11/03/19 10:04 EKG 12 Lead [EKG Documentation Completion] [RC] STAT - Assessment/Plan Last 24 Hours: My Active Orders 11/03/19 10:04 EKG 12 Lead [EKG Documentation Completion] [RC] STAT
== END 2019-11-03 12:23 ==
LOC: VM.ED 09:39
DX: J81.0 Acute pulmonary edema (principal); I10 Essential (primary) hypertension; E11.9 Type 2 diabetes mellitus without complications; E78.00 Pure hypercholesterolemia, unspecified; F41.9 Anxiety disorder, unspecified; I25.2 Old myocardial infarction; Z86.73 Personal history of transient ischemic attack (TIA), and cerebral infarction without residual deficits; Z95.5 Presence of coronary angioplasty implant and graft; Z88.8 Allergy status to other drugs, medicaments and biological substances; Z86.718 Personal history of other venous thrombosis and embolism; Z79.82 Long term (current) use of aspirin; Z79.4 Long term (current) use of insulin; Z79.899 Other long term (current) drug therapy; Z87.891 Personal history of nicotine dependence
CPT/HCPCS: 36415; 71045; 80053; 83880; 84484; 85025; 93005; 96374; 99284-GF; 99285-25; J1815-GY; J1940

== ENCOUNTER 2019-11-19 07:42 | Inpatient (IN) | payer MEDICARE, BC, MEDICAID ==
[2019-11-19] MEDS ORDERED: Furosemide 40 MG/4 ML VIAL IV ONE (07:56)
[2019-11-19] MEDS ORDERED: Nitroglycerin 0.4 MG Tab.SL SL ONE (07:56)
[2019-11-19] MEDS ORDERED: Sodium Chloride 0.9% 10 ML Syringe FLUSH PRN (07:57)
[2019-11-19] MEDS ORDERED: Morphine 4 MG/ML Syringe IVPUSH ONE (08:15)
--- NOTE | 2019-11-19 08:27 | EDM.PDOC ---
ED HPI GENERAL MEDICAL PROBLEM - General Chief Complaint: Respiratory Problem Time Seen by Provider: 11/19/19 07:45 Source of Information: Reports: EMS, Snf Records History Limitations: Reports: No Limitations - History of Present Illness INITIAL COMMENTS - FREE TEXT/NARRATIVE: Pt. presents to ER with complaints of acute onset shortness of breath. Pt. has a history of CHF. She was seen in ER on with acute exacerbation of CHF /pulmonary edema. She was treated with IV lasix and nitrates and was able to be [facility]. Pt. has a history of diastolic heart failure as well as stage 3 CKD and is scheduled to see nephrology on Nov.18. Pt. is currently on bumex 1 mg daily, Imdur 30mg daily, and toprol XL 100mg daily. She has been afebrile. She has not had any cough of chest congestion. No recent illness. Staff states that the symptoms started acutely this AM. Pt. denies any substernal chest pain. Onset: Today Onset Date: 11/19/19 Location: Reports: Upper Extremity, Right Quality: Reports: Sharp Severity: Severe Treatments MEDICAL PHYSICIST: Reports: Breathing Treatments, Oxygen - Related Data Allergies Allergy/AdvReac Type Severity Reaction Status Date / Time lisinopril AdvReac Severe Other Verified 11/19/19 07:59 sertraline [From Zoloft] AdvReac Intermediate Cannot Verified 11/19/19 07:59 Remember simvastatin [From Zocor] AdvReac Intermediate Muscle Verified 11/19/19 07:59 Aches Home Meds: Home Meds Insulin Aspart [NovoLOG] 15 unit SUBCUT DAILY@1800 06/29/16 [History] Insulin Detemir [Levemir Flextouch] 35 units SUBCUT BEDTIME 06/29/16 [History] Cholecalciferol (Vitamin D3) [Vitamin D3] 400 units PO DAILY 10/10/17 [History] Insulin Aspart [Novolog Flexpen] 20 unit SQ DAILY@1200 10/18/17 [History] Metoprolol Succinate [Toprol XL] 100 mg PO DAILY 10/18/17 [History] Nitroglycerin 0.4 mg SL Q5M PRN 10/18/17 [History] atorvaSTATin [Lipitor] 40 mg PO BEDTIME 10/18/17 [History] Ferrous Sulfate 325 mg PO DAILY #30 tablet 11/29/17 [Rx] Melatonin 6 mg PO BEDTIME tablet 11/29/17 [Rx] Acetaminophen 650 mg PO Q4H PRN MDD 3000mg/day 02/01/18 [History] Bisacodyl 10 mg RECTAL DAILY PRN 02/01/18 [History] Sennosides/Docusate Sodium [Senna Plus Tablet] 1 tab PO BID PRN 02/01/18 [ History] Magnesium Oxide 400 mg PO DAILY #60 tablet 02/04/18 [Rx] Aspirin [Adult Low Dose Aspirin EC] 81 mg PO DAILY 07/15/19 [History] Insulin Aspart [NovoLOG] 10 units SUBCUT DAILY@0800 07/15/19 [History] Omeprazole 20 mg PO DAILY 07/15/19 [History] Polyethylene Glycol 3350 [MiraLAX] 17 gm PO DAILY 07/15/19 [History] traZODone HCl [Trazodone HCl] 25 mg PO BEDTIME 07/15/19 [History] Bumetanide [Bumex] 1 mg PO DAILY 09/03/19 [History] [place]/Min Oil/Nella/Wool Alcoh [Eucerin Creme] 1 applic TOP BID 09/03/19 [ History] Cranberry Fruit Extract [Cranberry] 425 mg PO TID 09/03/19 [History] Menthol/Methyl Salicylate [Icy Hot] 1 applic TOP DAILY 09/03/19 [History] Isosorbide Mononitrate [Isosorbide Mononitrate ER] 30 mg PO DAILY 09/29/19 [ History] Ticagrelor [Brilinta] 60 mg PO BID 09/29/19 [History] ALPRAZolam [Xanax] 0.25 mg PO DAILY PRN 11/03/19 [History] Past Medical History HEENT History: Reports: Cataract, Hard of Hearing, Retinal Detachment, Other ( See Below) Other HEENT History: presbyopia. hypermetropia. senile nuclear sclerosis. dry eye Cardiovascular History: Reports: Blood Clots/VTE/DVT, High Cholesterol, Hypertension, [place], PVD, Other (See Below) Other Cardiovascular History: palpitation Respiratory History: Reports: None, Pneumonia, Recurrent Gastrointestinal History: Reports: Hemorrhoids Genitourinary History: Reports: Renal Disease, Other (See Below) Other Genitourinary History: perisistent proteinuria TUB RIDER History: Reports: Prolapsed Uterus Musculoskeletal History: Reports: None Neurological History: Reports: CVA Psychiatric History: Reports: Anxiety Endocrine/Metabolic History: Reports: Diabetes, Type II, Other (See Below) Other Endocrine/Metabolic History: lipodystrophy Hematologic History: Reports: Other (See Below) Other Hematologic History: Protein M in blood-inactive at this time; vitamin D deficiency Immunologic History: Reports: None Oncologic (Cancer) History: Reports: Basal Cell Carcinoma Dermatologic History: Reports: Other (See Below) Other Dermatologic History: Intrinsic atopic dermatitis. skin lesion to face - Past Surgical History Head Surgeries/Procedures: Reports: None HEENT Surgical History: Reports: Cataract Surgery Cardiovascular Surgical History: Reports: Coronary Artery Stent GI Surgical History: Reports: Cholecystectomy Female Surgical History: Reports: Hysterectomy Other Female Surgeries/Procedures: Bladder repair Musculoskeletal Surgical History: Reports: None Social & Family History - Family History Family Medical History: Noncontributory - Caffeine Use Caffeine Use: Reports: Coffee Caffeine Use Comment: 2 cups a day. ED ROS GENERAL - Review of Systems Review Of Systems: See Below Constitutional: Reports: No Symptoms. Denies: Fever, Chills HEENT: Reports: No Symptoms Respiratory: Reports: Shortness of Breath Cardiovascular: Reports: Dyspnea on Exertion, Orthopnea. Denies: Chest Pain, Palpitations Endocrine: Reports: No Symptoms GI/Abdominal: Reports: No Symptoms : Reports: No Symptoms Musculoskeletal: Reports: No Symptoms Skin: Reports: No Symptoms Neurological: Reports: No Symptoms Psychiatric: Reports: No Symptoms Hematologic/Lymphatic: Reports: No Symptoms Immunologic: Reports: No Symptoms ED EXAM, GENERAL - Physical Exam Exam: See Below Exam Limited By: No Limitations General Appearance: Alert, WD/WN, No Apparent Distress Eye Exam: Bilateral Eye: EOMI, Normal Fundi, PERRL Throat/Mouth: Normal Inspection, Normal Lips, Normal Teeth, Normal Gums, Normal Voice, No Airway Compromise Head: Atraumatic, Normocephalic Neck: Normal Inspection, Supple, Non-Tender, Full Range of Motion Respiratory/Chest: No Accessory Muscle Use, Respiratory Distress, Crackles, Rales Cardiovascular: Normal Peripheral Pulses, Regular Rate, Rhythm, No Edema, No Gallop, No JVD, No Murmur, No Rub Peripheral Pulses: 4+: Radial (L) GI/Abdominal: Normal Bowel Sounds, Soft, Non-Tender, No Organomegaly, No Distention, No Abnormal Bruit, No Mass, Pelvis Stable (Female) Exam: Deferred Rectal (Female) Exam: Deferred Back Exam: Normal Inspection, Full Range of Motion Extremities: Normal Inspection, Normal Range of Motion, Non-Tender, No Pedal Edema, Normal Capillary Refill Neurological: Alert, Oriented, CN II-XII Intact, Normal Cognition, Normal Reflexes, No Motor/Sensory Deficits Psychiatric: Normal Affect, Normal Mood Skin Exam: Warm, Dry, Intact, No Rash, Pallor Lymphatic: No Adenopathy Course - Vital Signs Last Recorded V/S: Last Vital Signs Temp 35.8 C 11/19/19 07:42 Pulse 63 11/19/19 09:37 Resp 24 H 11/19/19 09:37 BP 163/65 H 11/19/19 09:37 Pulse Ox 95 11/19/19 09:37 - Orders/Labs/Meds Orders: Active Orders 24 hr Category Date Time Status Cardiac Monitoring [RC] 06,10,14,18,22,02 Care 11/19/19 07:57 Active Oxygen Therapy [RC] 06,10,14,18,22,02 Care 11/19/19 08:02 Active Sodium Chloride 0.9% [Saline Flush] Med 11/19/19 07:57 Active 10 ml FLUSH ASDIRECTED PRN Peripheral IV Insertion Adult [OM.PC] Routine Oth 11/19/19 07:58 Ordered Medication Orders Sodium Chloride (Saline Flush) 10 ml FLUSH ASDIRECTED PRN PRN Reason: Keep Vein Open Labs: Laboratory Tests 11/19/19 11/19/19 11/19/19 Range/Units 08:12 08:12 08:12 WBC 10.3 H (4.0-10.0) x10^3/uL RBC 3.36 L (4.00-5.50) x10^6/uL Hgb 10.8 L (12.0-16.0) g/dL Hct 33.7 (33.0-47.0) % MCV 100.3 H (78.0-93.0) fL MCH 32.1 H (26.0-32.0) pg MCHC 32.0 (32.0-36.0) g/dL RDW Coeff of Mega 14.9 (10.0-15.0) % Plt Count 222 (130-400) x10^3/uL Add Manual Diff Yes Neutrophils % (Manual) 76 (50-80) % Band Neutrophils % 1 (0-6) % Lymphocytes % (Manual) 17 L (25-50) % Atypical Lymphs % 2 H (0) % Monocytes % (Manual) 4 (2-11) % Platelet Estimate Adequate Anisocytosis 1+ slight H PT 9.9 L (10.0-12.8) SEC INR 0.9 L (2.0-3.5) Sodium 138 (136-145) mmol/L Potassium 4.9 (3.5-5.1) mmol/L Chloride 100 (98-107) mmol/L Carbon Dioxide 23 (21-32) mmol/L Anion Gap 19.9 (10-20) mmol/L BUN 62 H (7-18) mg/dL Creatinine 1.9 H (0.55-1.02) mg/dL Est Cr Clr Drug Dosing TNP Estimated GFR (MDRD) 25 Glucose 509 H* (74-106) mg/dL Calcium 9.4 (8.5-10.1) mg/dL Corrected Calcium 10.04 (8.5-10.1) mg/dL Magnesium 2.1 (1.8-2.4) mg/dL Total Bilirubin 0.6 (0.2-1.0) mg/dL AST 15 (15-37) U/L ALT 15 (14-59) U/L Alkaline Phosphatase 97 (46-116) U/L Troponin I 0.132 H* (<=0.056) ng/mL NT-Pro-B Natriuret Pep 5546 H (<=450) pg/mL Total Protein 8.2 (6.4-8.2) g/dL Albumin 3.2 L (3.4-5.0) g/dL Globulin 5.0 Albumin/Globulin Ratio 0.64 TSH, Ultra Sensitive 1.451 (0.358-3.74) uIU/mL Meds: Medications Generic Name Dose Route Start Last Admin Trade Name Freq PRN Reason Stop Dose Admin Sodium Chloride 10 ml 11/19/19 07:57 Saline Flush FLUSH ASDIRECTED PRN Keep Vein Open Discontinued Medications Generic Name Dose Route Start Last Admin Trade Name Freq PRN Reason Stop Dose Admin Furosemide 60 mg 11/19/19 07:56 11/19/19 08:09 Lasix IV 11/19/19 07:57 60 mg ONETIME ONE Administration Insulin Human Regular 10 unit 11/19/19 09:03 Humulin R IVPUSH 11/19/19 09:04 ONETIME ONE Morphine Sulfate 4 mg 11/19/19 08:15 11/19/19 08:38 Morphine IVPUSH 11/19/19 08:16 4 mg ONETIME ONE Administration Nitroglycerin 0.4 mg 11/19/19 07:56 11/19/19 07:54 Nitrostat SL 11/19/19 07:57 0.4 mg ONETIME ONE Administration - Re-Assessments/Exams Free Text/Narrative Re-Assessment/Exam: Pt. was given lasix 60mg IV and nitroglycerin 0.4mg SL. She was also given morphine 4 mg IV. Pt. reported rapid improvement in her shortness of breath. Blood pressure improved following treatment for acute exacerbation of CHF. O2 saturation improved to 97% on 2 liters. She was also given regular insulin 10 u IV for hyperglycemia. Departure - Departure Time of Disposition: 09:43 Disposition: DC/Tfer to [facility] 02 Clinical Impression: Hyperglycemia CHF (congestive heart failure) Qualifiers: Heart failure type: systolic Heart failure chronicity: acute on chronic Qualified Code(s): I50.23 - Acute on chronic systolic (congestive) heart failure Pulmonary edema Qualifiers: Chronicity: acute Qualified Code(s): J81.0 - Acute pulmonary edema - Discharge Information Sepsis Event Note - Evaluation Sepsis Screening Result: No Definite Risk - Focused Exam Vital Signs: Vital Signs Temp Pulse Resp BP BP Pulse Ox Pulse Ox 11/19/19 08:48 70 24 H 164/71 H 96 11/19/19 08:40 79 32 H 189/100 H 95 11/19/19 07:54 206/107 H 11/19/19 07:50 91 L 11/19/19 07:42 35.8 C 89 40 H 206/107 H 88 L 88 L Date Exam was Performed: 11/19/19 Time Exam was Performed: 09:40 - My Orders Last 24 Hours: My Active Orders 11/19/19 07:57 Cardiac Monitoring [RC] 06,10,14,18,22,02 Sodium Chloride 0.9% [Saline Flush] 10 ml FLUSH ASDIRECTED PRN 11/19/19 07:58 Peripheral IV Insertion Adult [OM.PC] Routine 11/19/19 08:02 Oxygen Therapy [RC] 06,10,14,18,,02 - Assessment/Plan Admission H&P: Please use this note as an admission H&P Last 24 Hours: My Active Orders 11/19/19 07:57 Cardiac Monitoring [RC] 06,,14,18,,02 Sodium Chloride 0.9% [Saline Flush] 10 ml FLUSH ASDIRECTED PRN 11/19/19 07:58 Peripheral IV Insertion Adult [OM.PC] Routine 11/19/19 08:02 Oxygen Therapy [RC] 06,10,14,18,,02 Plan: Discussed patient with Dr. Tate. She will be admitted acutely. Will trend troponin. Will increase bumex for next several days. Her blood pressure has been in the 150s over 90s range in the prison according to Dr. Tate. Will also increase her imdur ER 60mg once daily. Pt. is a code 2, no intubation/ no CPR.
--- NOTE | 2019-11-19 08:51 | CR ---
[id number] RAD/RAD Chest PA or AP 1V EXAM: FRONTAL CHEST INDICATION: DYSPNEA. COMPARISON: November 03, 2019. DISCUSSION: There is stable cardiomegaly. Mild to moderate pulmonary edema is stable or mildly increased relative to November 03, 2019. IMPRESSION: 1. Mild to moderate congestive heart failure. Carl Shea MD 11/19/19 0850 Thank you for allowing us to participate in the care of your patient.
[2019-11-19 09:00] LABS: CHLORIDE,CL 100 mmol/L (98-107); SODIUM,NA 138 mmol/L (136-145)
[2019-11-19 09:01] LABS: ANION GAP 19.9 mmol/L (10-20)
[2019-11-19] MEDS ORDERED: Insulin Regular, Human 100 Units/ML 3 ML Vial IVPUSH ONE ×2 (09:03→10:06)
[2019-11-19] MEDS ORDERED: Bisacodyl 10 MG Supp RECTAL PRN (09:58)
[2019-11-19] MEDS ORDERED: ALPRAZolam 0.25 MG Tab PO PRN (09:58)
[2019-11-19] MEDS ORDERED: Acetaminophen 325 MG Tab PO PRN (09:58)
[2019-11-19] MEDS ORDERED: Isosorbide Mononitrate 30 MG Tab.ER PO SCH (10:15)
[2019-11-19] MEDS ORDERED: Non-Formulary Medication 1 Each (Metoprolol Succinate [Toprol Xl] 100 MG) PO SCH (10:15)
[2019-11-19] MEDS ORDERED: Metoprolol Succinate 50 MG Tab.ER PO SCH (10:29)
[2019-11-19] MEDS ORDERED: Isosorbide Mononitrate 60 MG Tab.ER PO SCH (10:29)
[2019-11-19] MEDS: Ferrous Sulfate 325 MG Tab PO SCH (11:21)
[2019-11-19] MEDS: Cholecalciferol (Vitamin D3) 10 MCG Tab PO SCH (11:21)
[2019-11-19] MEDS: Bumetanide 1 MG Tab PO SCH (11:21)
[2019-11-19] MEDS: Aspirin 81 MG Tab.EC PO SCH (11:23)
[2019-11-19] MEDS: Magnesium Oxide 400 MG Tab PO SCH (11:23)
[2019-11-19] MEDS: Isosorbide Mononitrate 60 MG Tab.ER PO SCH (12:27)
[2019-11-19] MEDS: Metoprolol Succinate 50 MG Tab.ER PO SCH (12:27)
[2019-11-19] MEDS: Insulin Lispro 100 Unit/ML 3 ML KwikPen SUBCUT SCH ×2 (13:00→18:20)
[2019-11-19] MEDS: TICAGRELOR 60 MG PO SCH (19:39)
[2019-11-19] MEDS: Melatonin 3 MG Tab PO SCH (19:40)
[2019-11-19] MEDS: atorvaSTATin 40 MG Tab PO SCH (19:40)
[2019-11-19] MEDS: traZODone 50 MG Tab PO SCH (19:41)
[2019-11-19] MEDS ORDERED: Insulin Glargine,Human Rec. Analog 100 Units/ML 3 ML Pen SUBCUT SCH (20:00)
[2019-11-20] MEDS ORDERED: Acetaminophen/Codeine 300-30 MG Tab PO PRN (00:15)
[2019-11-20 06:57] LABS: ANION GAP 15.4 mmol/L (10-20)
--- NOTE | 2019-11-20 09:09 | CR ---
[id number] RAD/RAD Chest PA or AP 1V EXAM: FRONTAL CHEST INDICATION: FOLLOW UP CHF COMPARISON: November 19, 2019. DISCUSSION: Stable cardiomegaly with minor residual central vascular congestion. Overall, pulmonary edema has markedly improved relative to the previous examination. Tortuous thoracic aorta. IMPRESSION: 1. Cardiomegaly with mild residual central vascular congestion. Overall, pulmonary edema has significantly improved. Carl Shea MD 11/20/19 0908 Thank you for allowing us to participate in the care of your patient.
--- NOTE | 2019-11-20 09:31 | PN ---
Progress Note for MYRIAM Heard AUS Date: 11/20/2019 Room #: VM.201 SUBJECTIVE: She is feeling better. She is less short of breath. She is little bit more relaxed this morning. She denies chest pain. It was noted yesterday on admission that her troponin was elevated and did go up higher, but that was felt to be more so due to CHF exacerbation and not acute PA. OBJECTIVE: Vital Signs: This morning, her weight is 85.9, her pulse is 57, blood pressure is 140/53, respiratory rate is 18, saturations are 98% on 2 L. General: She appears tired. Heart: Regular rate. Lungs: Have diminished breath sounds on bases. Abdomen: Soft. Skin: Pale, warm, and dry. LABORATORY DATA: Her hemoglobin has dropped down to 8.7, white blood cell count 9.8, platelets are 181. Sodium 141, potassium 4.4, creatinine is 1.9 which is stable, BUN has increased up to 74. Blood sugars have improved down to 190s. Magnesium was 2.0. LFTs showed her AST was 38. Her troponin on admit was 0.132, went up to 13, now is down to 7 this morning. ProBNP was 5500 on admit, it is up to 13,000 today. IMPRESSION: 1. Exacerbation of congestive heart failure. 2. Elevated troponin, suspect [id number] elevation myocardial infarction. 3. Chronic kidney disease. 4. Anemia of chronic disease. 5. Type 2 diabetes mellitus. 6. Cerebrovascular disease with left hemiparesis. PLAN: We will repeat x-ray today. We will increase her fluid restriction up to 2000 mL a day. We will be able to stop her cardiac monitoring and hope to be able to discharge back to halfway tomorrow. Her Imdur had been increased yesterday as well. Also, she had been given some morphine as needed for comfort as well and that morphine was just one time. GM11/20/2019 08:36:16 MODL: 11/20/2019 09:19:02 /[id number]
[2019-11-20] MEDS: Omeprazole 20 MG Cap.CR PO SCH (10:32)
[2019-11-20] MEDS: Bumetanide 1 MG Tab PO SCH (10:32)
[2019-11-20] MEDS: Metoprolol Succinate 50 MG Tab.ER PO SCH (10:32)
[2019-11-20] MEDS: Isosorbide Mononitrate 60 MG Tab.ER PO SCH (10:40)
[2019-11-20] MEDS: Cholecalciferol (Vitamin D3) 10 MCG Tab PO SCH (10:41)
[2019-11-20] MEDS: Aspirin 81 MG Tab.EC PO SCH (10:41)
[2019-11-20] MEDS: Magnesium Oxide 400 MG Tab PO SCH (10:41)
[2019-11-20] MEDS: TICAGRELOR 60 MG PO SCH ×2 (10:42→20:48)
[2019-11-20] MEDS: Ferrous Sulfate 325 MG Tab PO SCH (10:42)
[2019-11-20] MEDS: Polyethylene Glycol 3350 Powder 17 GM Packet PO SCH (10:46)
[2019-11-20] MEDS: Insulin Lispro 100 Unit/ML 3 ML KwikPen SUBCUT SCH ×3 (10:57→17:54)
[2019-11-20] MEDS ORDERED: Acetaminophen 325 MG Tab PO PRN (12:24)
[2019-11-20] MEDS ORDERED: Insulin Glargine,Human Rec. Analog 100 Units/ML 3 ML Pen SUBCUT SCH (20:00)
[2019-11-20] MEDS: traZODone 50 MG Tab PO SCH (20:34)
[2019-11-20] MEDS: atorvaSTATin 40 MG Tab PO SCH (20:34)
[2019-11-20] MEDS: Melatonin 3 MG Tab PO SCH (20:35)
[2019-11-21 07:04] LABS: ANION GAP 14.8 mmol/L (10-20)
[2019-11-21] MEDS ORDERED: Bisacodyl 10 MG Supp RECTAL ONE (08:09)
[2019-11-21] MEDS: Metoprolol Succinate 50 MG Tab.ER PO SCH (08:30)
[2019-11-21] MEDS: Cholecalciferol (Vitamin D3) 10 MCG Tab PO SCH (08:31)
[2019-11-21] MEDS: Isosorbide Mononitrate 60 MG Tab.ER PO SCH (08:31)
[2019-11-21] MEDS: Aspirin 81 MG Tab.EC PO SCH (08:31)
[2019-11-21] MEDS: Bumetanide 1 MG Tab PO SCH (08:31)
[2019-11-21] MEDS: Insulin Lispro 100 Unit/ML 3 ML KwikPen SUBCUT SCH (08:32)
[2019-11-21] MEDS: Ferrous Sulfate 325 MG Tab PO SCH (08:32)
[2019-11-21] MEDS: Omeprazole 20 MG Cap.CR PO SCH (08:32)
[2019-11-21] MEDS: Magnesium Oxide 400 MG Tab PO SCH (08:32)
[2019-11-21] MEDS: Polyethylene Glycol 3350 Powder 17 GM Packet PO SCH (08:34)
[2019-11-21] MEDS: TICAGRELOR 60 MG PO SCH (08:35)
--- NOTE | 2019-11-21 08:57 | PN ---
Progress Note for MYRIAM Heard AUS Date: 11/21/2019 Room #: VM.201 SUBJECTIVE: She is feeling much better. She is eager to go home. She had a comfortable night last night. Offers no concerns other than she has not had a bowel movement since coming here. OBJECTIVE: Vital Signs: Her weight is 184 today, which is down 4 pounds. Her blood pressure is 129/77, pulse is 102, saturations are 94% on room air. General: She is alert, comfortable in bed. Heart: Regular rate and rhythm. Lungs: Diminished breath sounds on bases. Abdomen: Bowel sounds present. Soft, nontender. Skin: She does have pressure ulcers on her right ear. LABORATORY DATA: Shows that her hemoglobin is stable at 9.0, white blood cell count 7.9 with platelets of 181. Sodium 140, potassium 3.9, creatinine 1.8 which is stable, BUN improved to 71, glucose is 176. ProBNP is 8593, which is improved from yesterday. IMPRESSION: 1. Exacerbation of congestive heart failure. 2. Kkl-[id number] elevation myocardial infarction. 3. Anemia of chronic disease. 4. RIght ear pressure sore PLAN: We will [facility] the patient [facility] today. We will take out her [place]. Just only 2 medication changes were increase of Bumex and increase of her Imdur. GM11/21/2019 08:19:41 MODL: 11/21/2019 08:39:26 /[id number] GEE
[2019-11-21 10:55] VITALS: BP 127/72; PULSE 63
--- NOTE | 2019-11-21 16:16 | DISCH ---
PRIMARY DIAGNOSES: 1. Acute exacerbation of chronic diastolic congestive heart failure. 2. Han-OM-kxtutkmew myocardial infarction. 3. Chronic kidney disease. 4. Anemia of chronic disease. 5. Type 2 diabetes mellitus, on insulin. 6. Pressure ulcers on right ear. 7. Cerebrovascular disease with left hemiparesis. 8. Hypertension. SUMMARY OF ADMIT HISTORY AND PHYSICAL: The patient is an 84-year-old female who presents from [facility] with acute shortness of breath with tachypnea, hypoxemia. She denied any chest pain. She was seen in the emergency room by Maico Mccray. She was found to have pulmonary congestion on her chest x- ray. Her hemoglobin on admit was 10.8. Her troponin was 0.132. ProBNP was 5546. The patient was given IV Lasix and some morphine. She improved rapidly with oxygen. SUMMARY OF HOSPITAL COURSE: She was admitted to Acute Care. She was increased on her Imdur to help prevent coronary artery problem. She had her Bumex oral increased to 1.5 mg daily. To note, her troponin when checked 4 hours later had gone up to 13.36, but she had no ST changes. By next morning, her troponin was down to 7.72. She was fluid restricted to note her BUN went from 62 on admit up to 74. Her creatinine stayed the same at 1.89. Her chest x-ray greatly improved. Her hemoglobin did drop down to 8.7, blood sugars were monitored as they were initially 500 when she presented, but then came down to the 150s fairly quickly. She had a Greenfield catheter placed to help with diuresis, monitoring accurate Is and Os. Also, she had telemetry. Followup chest x-ray that was done on 11/20/2019 was greatly improved. Because of drop in hemoglobin, she was kept another day. Her laboratory data on 11/21/2019 showed her hemoglobin was 9.0, white blood cell count 7.9, platelets 181. Sodium 140, potassium 3.8, creatinine 1.8, BUN 71, proBNP 8593. The patient was felt to be stable to return back to [facility]. It is noted that she is code level status do not resuscitate/do not intubate. Family has been very adamant about wanting conservative therapy for patient and to keep her comfortable and not be aggressive with further heart interventions. The patient does have an upcoming appointment with Nephrology for her chronic kidney disease. MEDICATIONS: At the time of discharge: 1. NovoLog 15 units subcu daily at 6 p.m. 2. Levemir 35 units subcu at bedtime. 3. Vitamin D 400 international units daily. 4. Lipitor 40 mg at bedtime. 5. Toprol-XL 100 mg daily. 6. Nitroglycerin 0.4 sublingual every 5 minutes x3 p.r.n. 7. NovoLog 20 units subcu q.noon. 8. Ferrous sulfate 325 one pill daily. 9. Melatonin 6 mg at bedtime. 10.Tylenol 650 q.4 hours p.r.n. 11.Bisacodyl 10 mg suppository daily p.r.n. 12.Senna Plus 1 pill twice a day p.r.n. 13.Magnesium oxide 400 mg daily. 14.Aspirin 81 mg daily. 15.Trazodone 25 mg at bedtime. 16.Omeprazole 20 mg daily. 17.MiraLAX 17 g daily. 18.NovoLog 10 units subcu q.a.m. 19.Icy Hot 1 applicator daily. 20.Cranberry 425 one pill 3 times a day. 21.Bumex will be 1.5 mg daily. 22.Brilinta 60 mg b.i.d. 23.Isosorbide mononitrate 60 mg daily. 24.Alprazolam 0.25 mg daily p.r.n. 25.Tylenol with codeine No. 3 one q.4 hours p.r.n. (if that was present on admission, otherwise will be discontinued). PLAN: The patient will need to have lab work done on 11/25/2018 of CBC for anemia of chronic disease, basic metabolic profile for CHF. GM11/21/2019 08:26:00 MODL: 11/21/2019 16:00:49 /[id number] MTDD
== END 2019-11-21 11:30 | DRG 280 ==
LOC: VM.ED 07:42 → VM.MS 09:05
PROVIDERS: ADMIT Family Medicine; ATTEND Family Medicine
DX: I13.0 Hypertensive heart and chronic kidney disease with heart failure and stage 1 through stage 4 chronic kidney disease, or unspecified chronic kidney disease (principal); I50.23 Acute on chronic systolic (congestive) heart failure; I21.4 Non-ST elevation (NSTEMI) myocardial infarction; I50.33 Acute on chronic diastolic (congestive) heart failure; I69.354 Hemiplegia and hemiparesis following cerebral infarction affecting left non-dominant side; H91.90 Unspecified hearing loss, unspecified ear; E78.00 Pure hypercholesterolemia, unspecified; F41.9 Anxiety disorder, unspecified; E11.51 Type 2 diabetes mellitus with diabetic peripheral angiopathy without gangrene; E11.65 Type 2 diabetes mellitus with hyperglycemia; D63.8 Anemia in other chronic diseases classified elsewhere; L89.899 Pressure ulcer of other site, unspecified stage; E11.22 Type 2 diabetes mellitus with diabetic chronic kidney disease; Z86.718 Personal history of other venous thrombosis and embolism; N18.3 Chronic kidney disease, stage 3 (moderate); Z85.820 Personal history of malignant melanoma of skin; Z95.5 Presence of coronary angioplasty implant and graft; Z88.8 Allergy status to other drugs, medicaments and biological substances; Z79.4 Long term (current) use of insulin; Z79.82 Long term (current) use of aspirin; Z79.899 Other long term (current) drug therapy; I25.2 Old myocardial infarction; Z98.49 Cataract extraction status, unspecified eye; Z86.73 Personal history of transient ischemic attack (TIA), and cerebral infarction without residual deficits; Z85.828 Personal history of other malignant neoplasm of skin; Z90.49 Acquired absence of other specified parts of digestive tract; Z90.710 Acquired absence of both cervix and uterus; Z98.890 Other specified postprocedural states
CPT/HCPCS: 36415; 51702; 71045; 80048; 80053; 82962; 83735; 83880; 84443; 84484; 85025; 85610; 93005; 94760; 96374; 96375; 99284-GF; 99285-25; A9270-GY; J1815-GY; J1940; J2270

== ENCOUNTER 2019-12-06 07:29 | Inpatient (IN) | payer MEDICARE, BC, MEDICAID ==
[2019-12-06] MEDS ORDERED: Furosemide 100 MG/10 ML SDV IV ONE (07:41)
[2019-12-06] MEDS ORDERED: Morphine 4 MG/ML Syringe IVPUSH ONE (07:46)
[2019-12-06] MEDS ORDERED: Furosemide 40 MG/4 ML VIAL ONE ×2 (07:55)
[2019-12-06] MEDS ORDERED: Nitroglycerin 0.4 MG Tab.SL SL PRN ×2 (08:02→11:00)
[2019-12-06 08:24] LABS: CHLORIDE,CL 99 mmol/L (98-107); SODIUM,NA 136 mmol/L (136-145)
[2019-12-06 08:26] LABS: ANION GAP 21.2 mmol/L (10-20)
--- NOTE | 2019-12-06 08:39 | CR ---
[id number] RAD/RAD Chest PA or AP 1V EXAM: RAD Chest PA or AP 1V INDICATION: DYSPNEA. COMPARISON: November 20, 2019. DISCUSSION: Patient is rotated right during imaging, accounting for appearance of the mediastinum. Persistent enlargement of the cardiac silhouette, unchanged from the prior examination. Central vascular congestion. Basal predominant interlobular septal thickening in both lungs. Findings are superimposed on changes of bilateral symmetric hyperinflation. Appearance is most consistent with early changes of fluid retention. Correlate for congestive heart failure exacerbation. No evidence of pneumonia or other acute findings. IMPRESSION: As above. Elias Mcnair MD 12/06/19 0838 Thank you for allowing us to participate in the care of your patient.
--- NOTE | 2019-12-06 08:39 | EDM.PDOC ---
ED HPI GENERAL MEDICAL PROBLEM - General Stated Complaint: ER Time Seen by Provider: 12/06/19 07:30 Source of Information: Reports: Patient History Limitations: Reports: No Limitations - History of Present Illness INITIAL COMMENTS - FREE TEXT/NARRATIVE: Pt. presents to ER with complaints of dyspnea. Pt. 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 Pt. is a resident at [facility]. Staff states that they checked on her at 0400 this AM. At that time, she was resting and not exhibiting any signs of hypoxia. When she was checked on approx. 2.5 hours later, she was tachypneic and hypoxic with an O2 sat of 80%. Her Blood pressure was in the 200 over 100 range for nursing and EMS. Pt. was hospitalized from Nov.19 thru the with acute respiratory failure secondary to pulmonary edema from diastolic heart failure/CKD. She also had an elevated troponin at that time as well. Pt. has been afebrile. No significant cough. No episodes of aspiration. Family has been very adamant that the patient be treated conservatively. They are aware that she has serious chronic medical problems. Patient and family have not wanted transfer for cardiology consultation/nephrology consultation in the past recently. Pt. is a code 2 DNR/DNI. They are hoping for the patient to be kept comfortable and are not wanting any intervention. Onset: Today Onset Date: 12/06/19 Location: Reports: Chest, Generalized Severity: Severe Associated Symptoms: Reports: Shortness of Breath. Denies: Chest Pain Treatments [employer]: Reports: Oxygen, See EMS Report, Other (see below) Other Treatments [employer]: duoneb - Related Data Allergies Allergy/AdvReac Type Severity Reaction Status Date / Time lisinopril AdvReac Severe Other Verified 11/19/19 07:59 sertraline [From Zoloft] AdvReac Intermediate Cannot Verified 11/19/19 07:59 Remember simvastatin [From Zocor] AdvReac Intermediate Muscle Verified 11/19/19 07:59 Aches Home Meds: Home Meds Insulin Aspart [NovoLOG] 15 unit SUBCUT DAILY@1800 06/29/16 [History] Insulin Detemir [Levemir Flextouch] 35 units SUBCUT BEDTIME 06/29/16 [History] Cholecalciferol (Vitamin D3) [Vitamin D3] 400 units PO DAILY 10/10/17 [History] Insulin Aspart [Novolog Flexpen] 24 unit SQ DAILY@1200 10/18/17 [History] Metoprolol Succinate [Toprol XL] 100 mg PO DAILY 10/18/17 [History] Nitroglycerin 0.4 mg SL Q5M PRN 10/18/17 [History] atorvaSTATin [Lipitor] 40 mg PO BEDTIME 10/18/17 [History] Ferrous Sulfate 325 mg PO DAILY #30 tablet 11/29/17 [Rx] Melatonin 6 mg PO BEDTIME tablet 11/29/17 [Rx] Acetaminophen 650 mg PO Q4H PRN MDD 3000mg/day 02/01/18 [History] Bisacodyl 10 mg RECTAL DAILY PRN 02/01/18 [History] Sennosides/Docusate Sodium [Senna Plus Tablet] 1 tab PO BID PRN 02/01/18 [ History] Magnesium Oxide 400 mg PO DAILY #60 tablet 02/04/18 [Rx] Aspirin [Adult Low Dose Aspirin EC] 81 mg PO DAILY 07/15/19 [History] Insulin Aspart [NovoLOG] 12 units SUBCUT DAILY@0800 07/15/19 [History] Omeprazole 20 mg PO DAILY 07/15/19 [History] polyethylene glycoL 3350 [MiraLAX] 17 gm PO DAILY 07/15/19 [History] traZODone HCl [Trazodone HCl] 25 mg PO BEDTIME 07/15/19 [History] Cranberry Fruit Extract [Cranberry] 425 mg PO TID 09/03/19 [History] Menthol/Methyl Salicylate [Icy Hot] 1 applic TOP DAILY 09/03/19 [History] Ticagrelor [Brilinta] 60 mg PO BID 09/29/19 [History] ALPRAZolam [Xanax] 0.25 mg PO DAILY PRN 11/03/19 [History] Bumetanide [Bumex] 1.5 mg PO DAILY #45 tablet 11/21/19 [Rx] Isosorbide Mononitrate [Imdur] 60 mg PO DAILY #30 tab.er 11/21/19 [Rx] Past Medical History HEENT History: Reports: Cataract, Hard of Hearing, Retinal Detachment, Other ( See Below) Other HEENT History: presbyopia. hypermetropia. senile nuclear sclerosis. dry eye Cardiovascular History: Reports: Blood Clots/VTE/DVT, High Cholesterol, Hypertension, CA, PVD, Other (See Below) Other Cardiovascular History: palpitation Respiratory History: Reports: None, Pneumonia, Recurrent Gastrointestinal History: Reports: Hemorrhoids Genitourinary History: Reports: Renal Disease, Other (See Below) Other Genitourinary History: perisistent proteinuria RNP History: Reports: Prolapsed Uterus Musculoskeletal History: Reports: None Neurological History: Reports: CVA Psychiatric History: Reports: Anxiety Endocrine/Metabolic History: Reports: Diabetes, Type II, Other (See Below) Other Endocrine/Metabolic History: lipodystrophy Hematologic History: Reports: Other (See Below) Other Hematologic History: Protein M in blood-inactive at this time; vitamin D deficiency Immunologic History: Reports: None Oncologic (Cancer) History: Reports: Basal Cell Carcinoma Dermatologic History: Reports: Other (See Below) Other Dermatologic History: Intrinsic atopic dermatitis. skin lesion to face - Past Surgical History Head Surgeries/Procedures: Reports: None HEENT Surgical History: Reports: Cataract Surgery Cardiovascular Surgical History: Reports: Coronary Artery Stent GI Surgical History: Reports: Cholecystectomy Female Surgical History: Reports: Hysterectomy Other Female Surgeries/Procedures: Bladder repair Musculoskeletal Surgical History: Reports: None Social & Family History - Family History Family Medical History: Noncontributory - Tobacco Use Smoking Status *Q: Unknown Ever Smoked - Caffeine Use Caffeine Use: Reports: Coffee Caffeine Use Comment: 2 cups a day. ED ROS GENERAL - Review of Systems Review Of Systems: See Below Constitutional: Reports: No Symptoms HEENT: Reports: No Symptoms Respiratory: Reports: Shortness of Breath Cardiovascular: Reports: Dyspnea on Exertion, Orthopnea Endocrine: Reports: No Symptoms GI/Abdominal: Reports: No Symptoms : Reports: No Symptoms Musculoskeletal: Reports: No Symptoms Skin: Reports: No Symptoms Neurological: Reports: No Symptoms Psychiatric: Reports: No Symptoms Hematologic/Lymphatic: Reports: No Symptoms Immunologic: Reports: No Symptoms ED EXAM, GENERAL - Physical Exam Exam: See Below Exam Limited By: No Limitations General Appearance: Alert, WD/WN, No Apparent Distress Throat/Mouth: Normal Inspection, Normal Teeth, Normal Oropharynx, Normal Voice, No Airway Compromise Head: Atraumatic, Normocephalic Respiratory/Chest: Respiratory Distress, Crackles, Rales, Rhonchi Cardiovascular: Regular Rate, Rhythm, No Edema, No JVD, Systolic Murmur Peripheral Pulses: 4+: Radial (R) GI/Abdominal: Soft, Non-Tender, No Organomegaly, No Distention, No Mass (Female) Exam: Deferred Rectal (Female) Exam: Deferred Back Exam: Normal Inspection Extremities: Normal Inspection, Normal Range of Motion, Non-Tender, Normal Capillary Refill Neurological: Alert, Oriented, CN II-XII Intact, Normal Cognition, Normal Reflexes Psychiatric: Normal Affect, Normal Mood Skin Exam: Warm, Dry, Intact, No Rash Lymphatic: No Adenopathy Course - Vital Signs Last Recorded V/S: Last Vital Signs Temp 35.7 C 12/06/19 07:30 Pulse 62 12/06/19 09:07 Resp 22 H 12/06/19 09:07 BP 145/70 H 12/06/19 09:07 Pulse Ox 93 L 12/06/19 09:07 - Orders/Labs/Meds Orders: Active Orders 24 hr Category Date Time Status Patient Status [ADT] Routine ADT 12/06/19 09:32 Active EKG Documentation Completion [RC] STAT Care 12/06/19 07:43 Active Nitroglycerin [Nitrostat] Med 12/06/19 08:02 Active 0.4 mg SL Q5M PRN Sodium Chloride 0.9% [Saline Flush] Med 12/06/19 07:43 Active 10 ml FLUSH ASDIRECTED PRN Peripheral IV Insertion Adult [OM.PC] Routine Oth 12/06/19 07:44 Ordered Medication Orders Nitroglycerin (Nitrostat) 0.4 mg SL Q5M PRN PRN Reason: Chest Pain Stop: 12/07/19 08:02 Last Admin: 12/06/19 07:35 Dose: 0.4 mg Sodium Chloride (Saline Flush) 10 ml FLUSH ASDIRECTED PRN PRN Reason: Keep Vein Open Labs: Laboratory Tests 12/06/19 12/06/19 12/06/19 Range/Units 07:45 07:45 07:45 WBC 8.5 (4.0-10.0) x10^3/uL RBC 3.53 L (4.00-5.50) x10^6/uL Hgb 11.0 L D (12.0-16.0) g/dL Hct 35.1 (33.0-47.0) % MCV 99.4 H (78.0-93.0) fL MCH 31.2 (26.0-32.0) pg MCHC 31.3 L (32.0-36.0) g/dL RDW Coeff of Mega 14.9 (10.0-15.0) % Plt Count 218 (130-400) x10^3/uL Neut % (Auto) 67.2 (50.0-80.0) % Lymph % (Auto) 27.4 (25.0-50.0) % [place] % (Auto) 3.9 (2.0-11.0) % Eos % (Auto) 0.8 (0.0-4.0) % Baso % (Auto) 0.7 (0.2-1.2) % PT 9.9 L (10.0-12.8) SEC INR 0.9 L (2.0-3.5) Sodium 136 (136-145) mmol/L Potassium 5.2 H (3.5-5.1) mmol/L Chloride 99 (98-107) mmol/L Carbon Dioxide 21 (21-32) mmol/L Anion Gap 21.2 H (10-20) mmol/L BUN 75 H* (7-18) mg/dL Creatinine 2.1 H (0.55-1.02) mg/dL Est Cr Clr Drug Dosing TNP Estimated GFR (MDRD) 22 Glucose 497 H* (74-106) mg/dL Calcium 8.7 (8.5-10.1) mg/dL Corrected Calcium 9.34 (8.5-10.1) mg/dL Phosphorus 6.1 H (2.6-4.7) mg/dL Magnesium 2.3 (1.8-2.4) mg/dL Total Bilirubin 0.6 (0.2-1.0) mg/dL AST 14 L (15-37) U/L ALT 16 (14-59) U/L Alkaline Phosphatase 95 (46-116) U/L Troponin I 0.035 (<=0.056) ng/mL NT-Pro-B Natriuret Pep 5408 H (<=450) pg/mL Total Protein 8.4 H (6.4-8.2) g/dL Albumin 3.2 L (3.4-5.0) g/dL Globulin 5.2 Albumin/Globulin Ratio 0.62 Meds: Medications Generic Name Dose Route Start Last Admin Trade Name Freq PRN Reason Stop Dose Admin Nitroglycerin 0.4 mg 12/06/19 08:02 12/06/19 07:35 Nitrostat SL 12/07/19 08:02 0.4 mg Q5M PRN Administration Chest Pain Sodium Chloride 10 ml 12/06/19 07:43 Saline Flush FLUSH ASDIRECTED PRN Keep Vein Open Discontinued Medications Generic Name Dose Route Start Last Admin Trade Name Freq PRN Reason Stop Dose Admin Furosemide 80 mg 12/06/19 07:41 12/06/19 08:09 Lasix IV 12/06/19 07:42 Not Given ONETIME ONE Furosemide Confirm 12/06/19 07:55 12/06/19 07:52 Lasix Administered 12/06/19 07:56 80 mg Dose Administration 80 mg .ROUTE .STK-MED ONE Furosemide Confirm 12/06/19 07:55 12/06/19 08:09 Lasix Administered 12/06/19 07:56 Not Given Dose 80 mg .ROUTE .STK-MED ONE Insulin Human Regular 10 unit 12/06/19 08:40 12/06/19 08:52 Humulin R IVPUSH 12/06/19 08:41 10 unit ONETIME ONE Administration Morphine Sulfate 4 mg 12/06/19 07:46 12/06/19 07:52 Morphine IVPUSH 12/06/19 07:47 4 mg ONETIME ONE Administration Departure - Departure Time of Disposition: 09:48 Disposition: Admitted As Inpatient 66 Clinical Impression: Hypoxemia, Hyperglycemia, CKD (chronic kidney disease) stage 3, GFR 30-59 ml/ min Pulmonary edema Qualifiers: Chronicity: acute Qualified Code(s): J81.0 - Acute pulmonary edema CHF (congestive heart failure) Qualifiers: Heart failure type: systolic Heart failure chronicity: acute on chronic Qualified Code(s): I50.23 - Acute on chronic systolic (congestive) heart failure - Discharge Information Referrals: Cyndy Tate MD [Primary Care Provider] - Sepsis Event Note - Evaluation Sepsis Screening Result: No Definite Risk - Focused Exam Vital Signs: Vital Signs Temp Pulse Resp BP BP Pulse Ox 12/06/19 09:07 62 22 H 145/70 H 93 L 12/06/19 08:41 66 26 H 133/62 93 L 12/06/19 08:05 82 36 H 179/89 H 94 L 12/06/19 07:45 84 28 H 197/84 H 92 L 12/06/19 07:35 201/102 H 12/06/19 07:30 35.7 C 91 36 H 201/102 H 90 L Date Exam was Performed: 12/06/19 Time Exam was Performed: 09:45 - Problem List Review Problem List Initiated/Reviewed/Updated: Yes - My Orders Last 24 Hours: My Active Orders 12/06/19 07:43 EKG Documentation Completion [RC] STAT Sodium Chloride 0.9% [Saline Flush] 10 ml FLUSH ASDIRECTED PRN 12/06/19 07:44 Peripheral IV Insertion Adult [OM.PC] Routine 12/06/19 08:02 Nitroglycerin [Nitrostat] 0.4 mg SL Q5M PRN 12/06/19 09:32 Patient Status [ADT] Routine - Assessment/Plan Last 24 Hours: My Active Orders 12/06/19 07:43 EKG Documentation Completion [RC] STAT Sodium Chloride 0.9% [Saline Flush] 10 ml FLUSH ASDIRECTED PRN 12/06/19 07:44 Peripheral IV Insertion Adult [OM.PC] Routine 12/06/19 08:02 Nitroglycerin [Nitrostat] 0.4 mg SL Q5M PRN 12/06/19 09:32 Patient Status [ADT] Routine Plan: Pt. was given IV lasix 80mg IV, nitro 0.4mg SL, and morphine 4mg IV. She was also given insulin 10u IV for hyperglycemia. Her symptoms rapidly improved with the above treatment. Vital signs improved. Discussed admission vs. possible discharge with patient/Dr. Morin. Decision was made to admit the patient acutely so the patient can be diuresed and monitored. Pt. is a code 2 DNR/DNI. Greenfield catheter was placed for the time being. Dr. Morin will admit the patient. All questions were answered.
[2019-12-06] MEDS ORDERED: Insulin Regular, Human 100 Units/ML 3 ML Vial IVPUSH ONE (08:40)
[2019-12-06] MEDS ORDERED: Acetaminophen 325 MG Tab PO PRN (11:00)
[2019-12-06] MEDS ORDERED: Bisacodyl 10 MG Supp RECTAL PRN (11:00)
[2019-12-06] MEDS ORDERED: Insulin Lispro 100 Unit/ML 3 ML KwikPen SUBCUT SCH ×2 (12:00→18:00)
[2019-12-06] MEDS: TICAGRELOR 60 MG PO SCH ×2 (12:50→21:11)
[2019-12-06] MEDS: Cranberry 500 MG Cap PO SCH ×2 (12:51→21:06)
[2019-12-06] MEDS: Aspirin 81 MG Tab.EC PO SCH (12:51)
[2019-12-06] MEDS: Isosorbide Mononitrate 60 MG Tab.ER PO SCH (12:51)
[2019-12-06] MEDS: Metoprolol Succinate 50 MG Tab.ER PO SCH (12:51)
[2019-12-06] MEDS: Omeprazole 20 MG Cap.CR PO SCH (12:51)
[2019-12-06] MEDS: Cholecalciferol (Vitamin D3) 10 MCG Tab PO SCH (12:51)
--- NOTE | 2019-12-06 13:58 | HP ---
CHIEF COMPLAINT: High blood pressure and shortness of breath. HISTORY OF PRESENT ILLNESS: This is an 84-year-old female with known history of recurrent CHF admissions with combo systolic and diastolic heart failure with EF of 35% back in 08/2019, who was actually just admitted earlier this month with similar findings, who was doing well around 4 a.m. this morning when they checked on her. She was fine, but then around 6:30, she woke up acutely hypoxic, could not breathe, tachypneic, saturations in the 80s, blood pressure like 260 systolic, so they did transfer her to the emergency room for further care. In the emergency room, her blood pressures were 200 over the 100s. She was denying cough. They did not feel like there was any aspiration. The patient states it came on very suddenly and woke her up. She did receive 80 mg of IV Lasix in the ER. Greenfield was placed. She has had good urine output. She also received some morphine and regular insulin due to high blood pressure and a nitroglycerin. Changes made on her last stay were that her Imdur and diuretic were increased. The patient is feeling much more comfortable now. She denies that she ever had any chest pain this morning. She is quite sleepy because she states she lost out on some sleep this morning. She does not normally wear oxygen, but her saturations now up to 98% on just 2 L. Daughter is at the bedside for the conversation. The patient is well known to me. She has had a previous stroke with left-sided weakness. ALLERGIES: Her allergy list includes lisinopril, Zocor, and Zoloft. MEDICATIONS: Her medication list is reviewed from [facility]. NovoLog is 12 units with breakfast, 24 at noon, and 15 with supper; Levemir is 35 units at bedtime; Imdur 60 mg daily; magnesium 400 daily; melatonin 6 mg at bedtime; metoprolol 100 mg daily; nitroglycerin p.r.n.; omeprazole 20 mg daily; MiraLAX daily; Brilinta twice daily; trazodone 25 mg at bedtime; Xanax 0.25 mg daily; aspirin 81 mg daily; Lipitor 40 mg at bedtime; Tylenol p.r.n.; calcium daily; cranberry tablets daily; docusate-senna b.i.d. p.r.n., iron 325 daily, and her bumetanide was 1.5 mg daily. PAST MEDICAL HISTORY: Does include: 1. The chronic kidney disease. Her recent followup creatinine in the clinic was 1.9, two months ago it was 1.6. She is stage 3. 2. Recurrent exacerbations of heart failure, systolic and diastolic, known EF of 35%. 3. Paroxysmal atrial fibrillation. The patient was in sinus rhythm on this admission. 4. Anemia due to chronic kidney disease. Her hemoglobin baseline has been around 10, recently was 9.9, 11 today. 5. 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 6. Coronary artery disease, status post stenting, last in 01/2019. 7. Diabetes type 2 with retinopathy. 8. Essential hypertension. 9. History of DVT x2. 10.Mixed hyperlipidemia. 11.Mitral valve regurgitation, mild. 12.Cataracts. 13.Urinary retention, has needed intermittent catheterization. 14.Vitamin D deficiency. PAST SURGICAL HISTORY: The patient has had a vaginal hysterectomy. She has had cataract extractions; cholecystectomy; bladder repair, open. FAMILY HISTORY: Both parents are . Her father had an [place]. SOCIAL HISTORY: The patient is , lives at [facility]. Nonsmoker, nondrinker. Her children are very active in her care. Two daughters are present today. REVIEW OF SYSTEMS: General: They had not noticed any drastic weight gains or weight changes. Her weight was the same last February. No fever, no chills. HEENT: No sore throat. No cough. Lungs: The shortness of breath came on rather suddenly today. Cardiac: She has not noted any palpitations. No chest pain. Abdominal: No nausea, vomiting, or diarrhea. Otherwise, all systems reviewed and found to be negative unless otherwise stated. PHYSICAL EXAMINATION: Vital Signs: Her weight 81.6 kg, temperature 97.2, pulse 53, blood pressure 131/56, respiratory rate is 14, O2 again is 98 on 2 L. General: She is in no acute distress. Heart: Irregular rate and rhythm. No murmur is appreciated. Abdomen: Has positive bowel sounds. Soft, nontender. The patient actually has a mildly distended abdomen. She does agree with me she might be holding some fluid weight in there. Extremities: Warm and dry. No edema. Mental Status: She is alert, she is orientated x3. She is answering questions appropriately. LAB WORK: Initial troponin was normal. She was in within like an hour or two of the onset of symptoms. White count 8.5, hemoglobin 11, platelets 218. INR 0.9. Sodium 136; potassium 5.2; chloride 99; bicarb 21; BUN 75; creatinine 2.1; glucose 497, repeat after the 10 units of regular insulin, 206; calcium 8.7. Phosphorus 6.1. Magnesium 2.3. Bilirubin 0.6, AST 14, ALT 16, alkaline phosphatase 95. Troponin 0.035. ProBNP was 5408, less than last time. Albumin is 3.2. Otherwise, her chest x-ray was performed, which did show her to have increased pulmonary vascular congestion, consistent with her history of CHF. Her EKG showed her to have a sinus rhythm. There were some lateral ST depressions. ASSESSMENT: 1. Acute on chronic combo systolic and diastolic heart failure exacerbation with known ejection fraction of 35%. Actually, the patient is having what sounds like recurrent flash pulmonary edema. 2. Known coronary artery disease, not having any chest pain. Some EKG changes could be due to heart failure. The family was not interested in transfer for any cardiac intervention as documented by the ER provider and this has been the case in her care over the last several months. 3. Chronic kidney disease, stage 3. Creatinine is near baseline at 2.1. Recent checks have been like 1.6 to 1.9. 4. Type 2 diabetes, on long-term insulin with hyperglycemia. This has improved. We will do q.i.d. Accu-Cheks. 5. Mild hyperkalemia. This should improve with continued IV Lasix. 6. Gastroesophageal reflux disease. She is on omeprazole. 7. Iron deficiency anemia. She will continue on her iron. 8. Atrial fibrillation, appears to be in a sinus rhythm. She is not on any anticoagulation other than the Brilinta for her stent. 9. Anxiety. She is on her Xanax. 10.Hyperlipidemia. On Lipitor. 11.Insomnia. She is on melatonin and trazodone. 12.History of stroke with left hemiparesis. She requires a lift. 13.Remote history of urinary retention. Discussed that we will keep a catheter in for strict diuresis. 14.Mild malnutrition. Albumin 3.2. We will encourage a diet. PLAN: At this point, the patient is admitted for acute cares. She will get another dose of IV Lasix this afternoon. We will do 40 mg. We will see how she diureses. We will continue all of her cardiac medications. We will have her on 2 L of oxygen at night. We will try to wean the oxygen during the day. We will monitor troponins. Suspect that she could have a slight bump when it is checked about 6 hours after the event started. We will monitor her with telemetry. She is a code level 3. For DVT prophylaxis, I will put her on Lovenox. Given her renal insufficiency, we will just pick 30 mg daily. We will monitor electrolytes. We will not give her any extra potassium. Again, acute cares, anticipate at least a 2-night stay. Code level 3. MKA: 12/06/2019 12:57:09 MODL: 12/06/2019 13:49:35 /[id number] MTDD
[2019-12-06] MEDS: Furosemide 40 MG/4 ML VIAL IV SCH ×2 (14:07→16:57)
[2019-12-06] MEDS: Enoxaparin 30 MG/0.3 ML Syringe SUBCUT SCH (14:07)
[2019-12-06] MEDS: Sodium Chloride 0.9% 10 ML Syringe FLUSH PRN ×2 (14:08→16:58)
[2019-12-06] MEDS ORDERED: Insulin Glarg,Human.Rec.Analog 100 Unit/ML SUBCUT ONE ×2 (20:00→20:15)
[2019-12-06] MEDS ORDERED: Insulin Glarg,Human.Rec.Analog 100 Unit/ML SUBCUT SCH (20:00)
[2019-12-06] MEDS: atorvaSTATin 40 MG Tab PO SCH (21:06)
[2019-12-06] MEDS: traZODone 50 MG Tab PO SCH (21:07)
[2019-12-06] MEDS: Melatonin 3 MG Tab PO SCH (21:07)
[2019-12-07] MEDS: Omeprazole 20 MG Cap.CR PO SCH ×2 (06:24→16:44)
[2019-12-07] MEDS: Polyethylene Glycol 3350 Powder 17 GM Packet PO SCH (08:19)
[2019-12-07] MEDS: Magnesium Oxide 400 MG Tab PO SCH (08:20)
[2019-12-07] MEDS: Isosorbide Mononitrate 60 MG Tab.ER PO SCH (08:20)
[2019-12-07] MEDS: Aspirin 81 MG Tab.EC PO SCH (08:20)
[2019-12-07] MEDS: Furosemide 40 MG/4 ML VIAL IV SCH ×2 (08:20→16:44)
[2019-12-07] MEDS: Cholecalciferol (Vitamin D3) 10 MCG Tab PO SCH (08:20)
[2019-12-07] MEDS: Ferrous Sulfate 325 MG Tab PO SCH (08:22)
[2019-12-07] MEDS: Cranberry 500 MG Cap PO SCH ×3 (08:22→20:00)
[2019-12-07] MEDS: ALPRAZolam 0.25 MG Tab PO SCH (08:22)
[2019-12-07] MEDS: Metoprolol Succinate 50 MG Tab.ER PO SCH (08:23)
[2019-12-07] MEDS: TICAGRELOR 60 MG PO SCH ×2 (08:23→20:30)
[2019-12-07] MEDS: Menthol/Methyl Salicylate 85 GM Tube TOP SCH (08:24)
[2019-12-07] MEDS: Sodium Chloride 0.9% 10 ML Syringe FLUSH PRN ×2 (08:24→16:44)
[2019-12-07] MEDS ORDERED: Insulin Lispro 100 Unit/ML 3 ML KwikPen SUBCUT SCH (09:00)
--- NOTE | 2019-12-07 09:38 | CR ---
[id number] RAD/RAD Chest PA or AP 1V EXAM: RAD Chest PA or AP 1V INDICATION: DECREASED 02 SATURATION,CHF. COMPARISON: Yesterday. DISCUSSION: Cardiomegaly and central vascular congestion, similar to the prior examination. Resolution of bibasal interlobular septal thickening seen yesterday. Lungs demonstrate hyperinflation, which can be seen with chronic obstructive pulmonary disease. IMPRESSION: Improved appearance of the lungs compared to the prior examination. Elias Mcnair MD 12/07/19 0938 Thank you for allowing us to participate in the care of your patient.
[2019-12-07] MEDS: Carvedilol 3.125 MG Tab PO SCH ×2 (11:30→18:20)
[2019-12-07] MEDS: Insulin Lispro 100 Unit/ML 3 ML KwikPen SUBCUT SCH ×2 (11:34→18:22)
--- NOTE | 2019-12-07 11:58 | PN ---
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 The patient's chest x-ray was repeated this morning because she was short of breath. It has improved. It is speculated that she is short of breath because now she is bradycardic. Most of her heart rates are in the upper 40s. She denies chest pain. She did have an elevated troponin that peaked out at 7.8, but is coming down this morning. Her BUN did go up to 84. She got 160 mg of IV Lasix yesterday and had 1.7 L of urine output. She feels like her abdominal swelling has gone down. She has no abdominal pain. No leg swelling. Blood pressure is running a little bit higher this morning, but she was unable to get her Toprol due to the bradycardia. She has not had any bleeding problems. I did start her on Lovenox for DVT prophylaxis. Remotely, she used to take lisinopril, possibly this was stopped due to renal insufficiency. Her EF is 35%. OBJECTIVE: Vital Signs: Her weight is 83.6 kg. These were on the bed scale. It went up since admission, but may not be accurate. Temperature 98.6, pulse 58, blood pressure 151/55, respiratory rate 19, and O2 is 92% on room air. General: She is in no acute distress. She appears mildly pale. She is resting in bed. Heart: Regular rate and rhythm. S1, S2, without murmur. Lungs: Lung sounds are clear to auscultation bilaterally without crackles or wheezes. Abdomen: Mild distention. Positive bowel sounds. Nontender. Extremities: Warm and dry. No edema. Mental Status: She is alert. She is orientated x3. She is asking appropriate questions like "how did my chest x-ray look." ASSESSMENT: 1. Brg-OK-nqccaaxbc myocardial infarction due to heart failure. She is on medical management for the myocardial infarction. She is already on Brilinta. She is on Lipitor. She is on aspirin. Beta jenn currently on hold due to bradycardia. No JAM inhibitors due to allergy. Troponin has trended down. No need to repeat. 2. Acute on chronic combo systolic and heart failure exacerbation with EF 35%. We are going to diurese her with 40 mg IV twice daily of Lasix today and repeat renal function tomorrow. 3. Essential hypertension. Blood pressure is elevated, presumably due to holding the Toprol. I am going to go ahead and switch that over to Coreg 3.125 b.i.d. with holding parameters. Perhaps, a lower dose of this would be better for blood pressure and it will not affect rate as much. 4. History of atrial fibrillation. She has had no events on telemetry, but with the beta blockers being held, this is a concern. This was also discussed with Olga. 5. Chronic kidney disease stage 3. Creatinine actually improved from 2.1 to 2, however, her BUN went up. She has no signs of gastrointestinal bleeding other than the small drop in hemoglobin. She has not had any black stools. We will continue to monitor. 6. Type 2 diabetes with long-term insulin in hyperglycemia on admission. She got some insulin in the ER. Her appetite has been very poor. She has not been eating. I have cut down her insulin doses drastically. She missed most of her meal insulin. Her blood sugar is 116 this morning. We will continue with decreased insulin. 7. Gastroesophageal reflux disease. She is on her omeprazole. 8. Iron-deficiency anemia. This is a chronic problem. We will repeat lab work in the morning. Hgb similar to readings on her past admission 9. Anxiety, on Xanax. 10.Hyperlipidemia, Lipitor. 11.Insomnia, on melatonin and trazodone. 12.History of stroke with left hemiparesis. She requires a lift. We discussed continuing the catheter due to history of urinary retention also and due to continued diuresis and need for strict ins and outs, we will continue the catheter. 13.Mild malnutrition. Her liver enzymes have improved. We will encourage increased intake. Consider even protein powders. PLAN: At this point, the patient will continue on acute cares. We will continue with IV diuresis. We will continue 2 L of oxygen at night. She was placed back on oxygen this morning and it seemed to help. For DVT prophylaxis, she is on Lovenox. We will monitor hemoglobin closely for any signs of gastrointestinal bleeding. We will continue to monitor electrolytes. We will continue to monitor on telemetry. MKA: 12/07/2019 11:18:28 MODL: 12/07/2019 11:54:09 /[id number]
[2019-12-07] MEDS: Enoxaparin 30 MG/0.3 ML Syringe SUBCUT SCH (13:32)
[2019-12-07] MEDS ORDERED: Isosorbide Mononitrate 30 MG Tab.ER PO ONE (18:48)
[2019-12-07] MEDS ORDERED: Insulin Glarg,Human.Rec.Analog 100 Unit/ML SUBCUT SCH ×2 (20:00)
[2019-12-07] MEDS: Melatonin 3 MG Tab PO SCH (20:29)
[2019-12-07] MEDS: atorvaSTATin 40 MG Tab PO SCH (20:29)
[2019-12-07] MEDS: traZODone 50 MG Tab PO SCH (20:30)
[2019-12-08] MEDS: Omeprazole 20 MG Cap.CR PO SCH ×2 (06:00→16:54)
[2019-12-08 07:20] LABS: ANION GAP 16.1 mmol/L (10-20)
[2019-12-08] MEDS: Magnesium Oxide 400 MG Tab PO SCH (08:08)
[2019-12-08] MEDS: Cholecalciferol (Vitamin D3) 10 MCG Tab PO SCH (08:08)
[2019-12-08] MEDS: Cranberry 500 MG Cap PO SCH ×3 (08:08→19:58)
[2019-12-08] MEDS: ALPRAZolam 0.25 MG Tab PO SCH (08:08)
[2019-12-08] MEDS: Polyethylene Glycol 3350 Powder 17 GM Packet PO SCH (08:08)
[2019-12-08] MEDS: Aspirin 81 MG Tab.EC PO SCH (08:08)
[2019-12-08] MEDS: Furosemide 40 MG/4 ML VIAL IV SCH (08:08)
[2019-12-08] MEDS: Carvedilol 3.125 MG Tab PO SCH (08:08)
[2019-12-08] MEDS: Ferrous Sulfate 325 MG Tab PO SCH (08:08)
[2019-12-08] MEDS: Isosorbide Mononitrate 60 MG Tab.ER PO SCH (08:09)
[2019-12-08] MEDS: Menthol/Methyl Salicylate 85 GM Tube TOP SCH (08:09)
[2019-12-08] MEDS: Insulin Lispro 100 Unit/ML 3 ML KwikPen SUBCUT SCH ×3 (08:09→17:57)
[2019-12-08] MEDS: TICAGRELOR 60 MG PO SCH ×2 (08:11→19:59)
[2019-12-08] MEDS ORDERED: Carvedilol 3.125 MG Tab PO ONE ×3 (08:32→08:45)
--- NOTE | 2019-12-08 09:35 | PN ---
Progress Note for MYRIAM Heard AUS Date: 12/08/2019 Room #: VM.216 SUBJECTIVE: This is the patient's third hospital day with flash pulmonary edema. She is feeling better. She denies chest pain. She still does appear little bit winded. She has been on b.i.d. Lasix. Prior to that hospitalization, she has been on Bumex as recommended per group work program director. The patient has had a Greenfield catheter placed to help with healing of decubitus ulcers on her buttock areas. Her blood sugars have been variable. Her Toprol had been stopped and she was placed on carvedilol to help more with heart failure as well as having less slowing of her heart rhythm. OBJECTIVE: Vital Signs: Her weight has gone down 2 kg today. Her blood pressure has been around 130s/60s. Her pulse has gone up to the 100s right now. Objectively, she is slightly tachypneic. Heart: Regular rate. Lungs: Have diminished breath sounds on bases. Abdomen: Soft. Extremities: Lower extremities, no edema. LABORATORY DATA: Her lab today shows her hemoglobin has stayed stable at 10.0, white blood cell count 7.2. Sodium 139, potassium 4.1, BUN is elevated slightly at 87, creatinine stable at 2.0. GFR stable at 24. Glucose has ranged from 180s to 200s. Ferritin level is 255. Magnesium level is 2.1. IMPRESSION: 1. Acute exacerbation of chronic congestive heart failure. 2. Elevated troponin. 3. Type 2 diabetes mellitus. 4. Cerebrovascular disease with left hemiparesis. 5. Decubitus ulcers. 6. Elevated ST levels. 7. History of atrial fibrillation. 8. Bradycardia, improving. 9. Chronic anxiety disorder. 10.Insomnia. PLAN: We will stop her IV Lasix and try to convert her back to oral Bumex. We will increase her carvedilol dose to help manage her heart rhythm with goal to get less than 100, and she will continue with the oxygen. We will continue with the Greenfield catheter. Right now, she is on Lovenox. We will monitor her blood sugars. Hopefully, she will be able to be returned to the care center tomorrow. GM12/08/2019 08:29:05 MODL: 12/08/2019 09:28:59 /[id number]
[2019-12-08] MEDS: Enoxaparin 30 MG/0.3 ML Syringe SUBCUT SCH (12:15)
[2019-12-08] MEDS: Bumetanide 1 MG Tab PO SCH (16:54)
--- NOTE | 2019-12-08 17:17 | PCM.SN ---
- Free Text/Narrative Note: due to blood sugars increasing and her appetite is better, will increase her long acting insulin as well as her short acting insulins. On admission she was getting a total of 76 units a day, will increase her from 19 units a day to 50 units a day. Blood sugars prior to hospitalization were between 150's- 300's.
[2019-12-08] MEDS: Carvedilol 6.25 MG Tab PO SCH (17:56)
[2019-12-08] MEDS: Melatonin 3 MG Tab PO SCH (19:57)
[2019-12-08] MEDS: traZODone 50 MG Tab PO SCH (19:58)
[2019-12-08] MEDS: atorvaSTATin 40 MG Tab PO SCH (19:58)
[2019-12-08] MEDS ORDERED: Insulin Glarg,Human.Rec.Analog 100 Unit/ML SUBCUT SCH (20:00)
[2019-12-09] MEDS: Omeprazole 20 MG Cap.CR PO SCH (06:28)
[2019-12-09 07:20] LABS: ANION GAP 15.3 mmol/L (10-20)
[2019-12-09] MEDS: Ferrous Sulfate 325 MG Tab PO SCH (08:21)
[2019-12-09] MEDS: Polyethylene Glycol 3350 Powder 17 GM Packet PO SCH (08:21)
[2019-12-09] MEDS: Bumetanide 1 MG Tab PO SCH (08:21)
[2019-12-09] MEDS: Aspirin 81 MG Tab.EC PO SCH (08:22)
[2019-12-09] MEDS: TICAGRELOR 60 MG PO SCH (08:22)
[2019-12-09] MEDS: ALPRAZolam 0.25 MG Tab PO SCH (08:22)
[2019-12-09] MEDS: Magnesium Oxide 400 MG Tab PO SCH (08:22)
[2019-12-09] MEDS: Isosorbide Mononitrate 60 MG Tab.ER PO SCH (08:22)
[2019-12-09] MEDS: Cranberry 500 MG Cap PO SCH (08:22)
[2019-12-09] MEDS: Insulin Lispro 100 Unit/ML 3 ML KwikPen SUBCUT SCH (08:23)
[2019-12-09] MEDS: Cholecalciferol (Vitamin D3) 10 MCG Tab PO SCH (08:24)
[2019-12-09] MEDS: Carvedilol 6.25 MG Tab PO SCH (08:24)
[2019-12-09] MEDS: Menthol/Methyl Salicylate 85 GM Tube TOP SCH (08:24)
--- NOTE | 2019-12-09 09:45 | PN ---
Progress Note for MYRIAM Heard AUS Date: 12/09/2019 Room #: VM.216 SUBJECTIVE: Today is the patient's 4th hospital day. She is feeling better. She has had no ill events overnight. She has not had a bowel movement since she has been here. Yesterday, we had switched her from Lasix IV to Bumex oral, which has maintained her weight. Essentially, we did go up on her insulin doses as she was starting to climb with her blood sugars. She has not had any chest pain. Her son, Dru, was present this morning on rounds. The patient's telemetry has shown that she is going back to a sinus rhythm from her atrial fibrillation. She does feel stable to go back to the [facility]. Her son also feels comfortable with that plan of care as well. She has not had a bowel movement since being here. OBJECTIVE: Vital Signs: Her weight is up 1 kg from yesterday. Her blood pressure is 135/85, pulse is 64, saturations are 96% on 2 L. Her temperature is 36.7. Skin: [place], warm, and dry. Her decubitus ulcer on her buttocks is covered with dressing. Heart: Regular rate. Lungs: Clear to auscultation. Abdomen: Soft. Extremities: Lower extremities, no edema. She is hemiparetic on her left side. LABORATORY DATA: Shows her white blood cell count stable at 6.6, hemoglobin 10.1, platelets 179. Sodium 141, potassium 4.3, creatinine stable at 2.1, BUN stable at 87, glucose is 209. Troponin improved at 1.245. ProBNP is elevated at 10,936. Her EKG this morning has indeterminate rhythm, probably back to sinus with some ST depression in V3. IMPRESSION: 1. Acute exacerbation of chronic congestive heart failure. 2. Non-ST segment elevation myocardial infarction. 3. Chronic kidney disease, stage IV. 4. Type 2 diabetes mellitus. 5. Decubitus ulcers on sacrum. 6. Anemia of chronic disease. 7. Atrial fibrillation, converting back to sinus. PLAN: I do feel the patient has stabilized, is able to go back to [facility]. We will leave Greenfield in to help with healing of decubitus ulcers. We will need to monitor her blood sugars. She had been switched back to her Bumex at her baseline dose and she was placed on carvedilol. Please refer to discharge orders for further directions. I did speak with the son about possibility of placing the patient on hospice. He was not quite interested yet nor was the patient. However, we will see when her next exacerbation happens as they do not want further aggressive care of going to [place] with specialists. GM12/09/2019 08:41:27 MODL: 12/09/2019 09:09:49 /[id number]
[2019-12-09 10:24] VITALS: BP 101/43; PULSE 71
--- NOTE | 2019-12-10 03:54 | DISCH ---
PRIMARY DIAGNOSES: 1. Acute exacerbation of congestive heart failure with chronic diastolic congestive heart failure. 2. Zvm-EH-yagbqngal myocardial infarction. 3. Chronic kidney disease. 4. Type 2 diabetes mellitus, on insulin. 5. Sacral ulcers. 6. Cerebrovascular disease with chronic left hemiparesis. 7. Hypoxemia related to congestive heart failure. 8. Coronary artery disease. 9. Chronic anxiety disorder. 10.Hypercholesterolemia. SUMMARY OF HISTORY AND PHYSICAL: The patient is an 84-year-old resident of [facility], who presented to the emergency room on 12/06/2019 with shortness of breath that started at 6 a.m. She was quite tachypneic, hypoxic. Blood pressure was high, over 200/100. The patient last had a bout of similar episode about a month ago. The patient was adamant about not wanting referral to Cardiology or Nephrology and she is code level 2. The patient was seen in the emergency room. She was given IV Lasix. Her blood pressure went down to 145/70. Her initial lab work showed her hemoglobin higher than usual 11.0. Sodium was 136, potassium 5.2, creatinine 2.1, BUN 75, glucose 497, magnesium 2.3. LFTs normal. Troponin 0.035. ProBNP 5408. The patient was also given sublingual nitro. SUMMARY OF HOSPITAL COURSE: The patient was placed on acute care. She was also given morphine to help with venous capacitance of her lungs. She greatly improved. Her blood sugars were monitored. To note, she was placed on scheduled IV Lasix. She did diurese. She then had problems with some atrial fibrillation. She was switched from metoprolol to carvedilol because she was having some problems with bradycardia. Also, the carvedilol may help with heart failure a little bit better. Her insulin doses were greatly reduced as she was not eating well and her blood sugars were monitored. However, she did start to improve eating and so insulin did have to be increased. 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 Her chest x-rays were monitored. They did improve. Her lab had stabilized by 12/09. Her white blood cell count was 6.6, hemoglobin was 10.1, platelets are 179. Sodium 143, potassium 4.3, creatinine 2.1, BUN up to 87, glucose was 209. Her ferritin level had been checked, was high at 255, which may be related to stress. Troponin had gone down to 1.245. ProBNP had gone up to 10,936. Her magnesium level was monitored. It was 2.1 on 12/08. EKGs did show some ST depression in V4. The patient's Imdur was left the same. She did have a Greenfield catheter placed to help with healing of decubitus ulcers. It was felt that the patient had reached her stability and she had been maximized on her potential, so she was able to return back to care center. However, it is felt that she will continue to progress with heart failure as well as coronary artery disease with having continued heart attacks. We will place the patient on nighttime oxygen to prevent any sort of events that may be related to hypoxemia and we will keep the Greenfield catheter in until she is healed up for her sacral ulcers. We will check her blood sugars 4 times a day for 3 days and readjust her insulin accordingly after that. Call if her blood sugars are less than 60 or over 450. The patient had been on Lovenox while she was hospitalized to prevent further embolic events. MEDICATIONS AT DISCHARGE: Will be vitamin D 400 units 1 pill daily, Lipitor 40 mg 1 pill at bedtime, nitro 0.4 sublingual q.5 minutes x3 p.r.n., ferrous sulfate 325 one pill daily, melatonin 6 mg at bedtime, Tylenol 325 to 650 q.4 hours p.r.n., bisacodyl 10 mg rectal suppository daily p.r.n., Senna Plus 1 pill twice a day b.i.d. p.r.n., magnesium oxide 400 mg 1 pill daily, aspirin 81 mg 1 pill daily, trazodone 25 mg 1 pill at bedtime, omeprazole 20 mg 1 pill daily, MiraLAX 17 g daily, Icy Hot 1 topical daily, cranberry fruit extract 1 pill 3 times a day, Brilinta 60 mg 1 pill twice a day, alprazolam 0.25 mg 1 pill daily in the morning, Bumex 1.5 mg daily, isosorbide 60 mg 1 pill daily, carvedilol 6.25 mg b.i.d., Levemir 30 units subcu q.p.m., NovoLog 10 units 3 times a day before meals. However, may need to consider to break the Bumex into a twice a day dosing depending on how the patient does. The patient will need to have lab work done in a week's time of CBC for chronic anemia, BNP for CHF, magnesium level for high-risk meds. GM12/09/2019 08:50:40 MODL: 12/10/2019 03:49:42 /[id number]
== END 2019-12-09 10:15 | DRG 280 ==
LOC: VM.ED 07:29 → VM.MS 09:46
PROVIDERS: ADMIT Internal Medicine; ATTEND Family Medicine
DX: I21.4 Non-ST elevation (NSTEMI) myocardial infarction (principal); J81.0 Acute pulmonary edema; I50.33 Acute on chronic diastolic (congestive) heart failure; N18.3 Chronic kidney disease, stage 3 (moderate); I50.43 Acute on chronic combined systolic (congestive) and diastolic (congestive) heart failure; I13.0 Hypertensive heart and chronic kidney disease with heart failure and stage 1 through stage 4 chronic kidney disease, or unspecified chronic kidney disease; Z86.73 Personal history of transient ischemic attack (TIA), and cerebral infarction without residual deficits; E55.9 Vitamin D deficiency, unspecified; Z98.49 Cataract extraction status, unspecified eye; Z95.5 Presence of coronary angioplasty implant and graft; Z90.49 Acquired absence of other specified parts of digestive tract; Z90.710 Acquired absence of both cervix and uterus; H54.7 Unspecified visual loss; H91.90 Unspecified hearing loss, unspecified ear; Z86.718 Personal history of other venous thrombosis and embolism; I69.354 Hemiplegia and hemiparesis following cerebral infarction affecting left non-dominant side; I25.2 Old myocardial infarction; I73.9 Peripheral vascular disease, unspecified; E44.1 Mild protein-calorie malnutrition; N18.4 Chronic kidney disease, stage 4 (severe); E11.22 Type 2 diabetes mellitus with diabetic chronic kidney disease; E11.65 Type 2 diabetes mellitus with hyperglycemia; K21.9 Gastro-esophageal reflux disease without esophagitis; F41.9 Anxiety disorder, unspecified; G47.00 Insomnia, unspecified; L89.159 Pressure ulcer of sacral region, unspecified stage; D63.8 Anemia in other chronic diseases classified elsewhere; I25.10 Atherosclerotic heart disease of native coronary artery without angina pectoris; E78.00 Pure hypercholesterolemia, unspecified; Z88.8 Allergy status to other drugs, medicaments and biological substances; Z79.82 Long term (current) use of aspirin; Z79.4 Long term (current) use of insulin; Z79.899 Other long term (current) drug therapy; Z68.28 Body mass index [BMI] 28.0-28.9, adult
CPT/HCPCS: 36415; 51702; 71045; 80048; 80053; 82728; 82962; 83735; 83880; 84100; 84484; 85025; 85610; 93005; 94760; 96374; 96375; 99284-GF; 99285-25; A9270-GY; J1650; J1815-GY; J1940; J2270